=== PATIENT | male | born 1950 | race Caucasian/White ===

== ENCOUNTER 2020-04-25 10:03 | Emergency (ER) | payer OTHER, BC ==
--- OUTSIDE RECORDS SUMMARY | 2020-04-25 10:06 | XMS REPORT | Continuity of Care Document ---
:1950 Author Organization [facility] t Address [address] [place] [address] Care Team Providers Name Role Phone Haseeb Harrell MD Primary Care Physician Cecelia Colon MD Attending Clinician Problems This patient has no known problems. Allergies, Adverse Reactions, Alerts This patient has no known allergies or adverse reactions. Social History Social Habit Start Date Stop Date Quantity Comments Source [facility]igned [facility] Medications This patient has no known medications. Procedures This patient has no known procedures. Plan of Care Planned Activity Planned Date Details Comments Source Future Scheduled 2019-09-25 INFLUENZA VACCINE [place] [facility] Test 00:00:00 [code = INFLUENZA VACCINE] Future Scheduled 2014 65+ PNEUMOCOCCAL [place] [facility] Test 00:00:00 VACCINE (1 of 1 - PPSV23) [code = 65+ PNEUMOCOCCAL VACCINE (1 of 1 - PPSV23)] Future Scheduled 1999 COLONOSCOPY SCREENING [place] [facility] Mandaen Test 00:00:00 [code = COLONOSCOPY SCREENING] Future Scheduled 1999 SHINGLES VACCINES (#1) [place] Test 00:00:00 [code = SHINGLES VACCINES (#1)] Future Scheduled 1967 Hepatitis C screening [place] [facility] Mandaen Test 00:00:00 (procedure) [code = 889984545] Future Scheduled 1965 COVID-19 VACCINE (1 of [place] Test 00:00:00 2) [code = COVID-19 VACCINE (1 of 2)] Encounters Start End Encounter Admission Attending Care Care Encounter Source Date/Time Date/Time Type Type Clinicians Facility Department ID 2020-02-24 2020-02-24 Office ELMO Cooln [id number] 12:51:31 13:23:17 Visit [facility] [id number] Surgical [id number] Specialti [id number] [address] [place] Results This patient has no known results.
[2020-04-25 10:39] LABS: Absolute Lymphocytes (CBC) 1.9 K/uL (0.7-4.9); Basophils % 1.2 % (0-1.3); Hematocrit 42.7 % (39.6-49.0); Lymphocytes % 23.7 % (15.3-44.8); MPV 8.8 fL (7.6-11.3); RBC Red Blood Cell Count 4.64 M/uL (4.33-5.43)
[2020-04-25 10:52] LABS: Potassium 4.4 mmol/L (3.5-5.1)
--- NOTE | 2020-04-25 10:52 | RAD REPORT ---
EXAM DESCRIPTION: CT - Thorax Wo Con - 04/25/2020 10:34 am CLINICAL HISTORY: sob COMPARISON: none TECHNIQUE: Computed axial tomography of the chest was obtained. Contrast was not requested. All CT scans are performed using dose optimization technique as appropriate and may include automated exposure control or mA/KV adjustment according to patient size. FINDINGS: The evaluation of mediastinum, mesha and vessels is limited secondary to lack of IV contras t administration. Moderate bilateral interstitial mostly subpleural pulmonary opacities having the appearance of pulmon micky fibrosis. No consolidation Small mediastinal lymph nodes probably reactive in nature. No hilar lymphadenopathy. Coronary arteria l calcifications A pleural effusion is not present. No pericardial effusion IMPRESSION: Moderate pulmonary fibrosis
--- NOTE | 2020-04-25 10:54 | RAD REPORT ---
EXAM DESCRIPTION: [place] Single View04/25/2020 10:44 am CLINICAL HISTORY: Shortness of breath COMPARISON: December 2019 FINDINGS: Moderate bilateral interstitial lung opacities unchanged having the appearance of pulmona ry fibrosis. The heart is borderline enlarged
[2020-04-25 12:19] LABS: SARS-COV-2 RT PCR NEGATIVE (NEGATIVE)
--- NOTE | 2020-04-25 13:11 | EDPHYS ---
Physician Documentation [facility] Name: Houston Bell Age: 70 yrs Sex: Male : 1950 Arrival Date: 04/25/2020 Time: 10:07 Bed 6 Private MD: None, None ED Physician Dale Dyer HPI: 04/25 13:02 This 70 yrs old Male presents to ER via Ambulatory with complaints of Fever, rn Cough. 13:02 The patient reports fever, not measured (subjective). Onset: The symptoms/episode rn began/occurred yesterday. Modifying factors: there are no obvious modifying factors. Associated signs and symptoms: Pertinent positives: cough, Pertinent negatives: abdominal pain, altered mental status, skin rash. Severity of symptoms: At their worst the symptoms were mild in the emergency department the symptoms are unchanged. The patient has experienced similar episodes in the past. The patient has not recently seen a physician. Reports chronic cough and sob, mild, subjective fever. Reports several xrays showing interstitial and pneumonia findings. Reports previous smoker years ago, as well as possible exposures during years in [place] and [place]. . Historical: - Allergies: 10:26 Iodine (swelling and itching); aa5 - Home Meds: 10:26 Humira subcutaneous subcutaneous [Active]; aa5 - PMHx: 10:26 RA; Asbestos; aa5 - PSHx: 10:26 Hernia repair; cataracts; L knee; James shoulders; aa5 - Immunization history:: Adult Immunizations unknown. - Social history:: Smoking status: Patient denies any tobacco usage or history of. - Family history:: not pertinent. - Hospitalizations: : No recent hospitalization is reported. ROS: 13:02 Constitutional: Negative for fever, chills, and weight loss, Eyes: Negative for injury, rn pain, redness, and discharge, Cardiovascular: Negative for chest pain, palpitations, and edema, Respiratory: + mild tachypnea, no retractions Abdomen/GI: Negative for abdominal pain, nausea, vomiting, diarrhea, and constipation, Back: Negative for injury and pain, MS/Extremity: Negative for injury and deformity, Skin: Negative for injury, rash, and discoloration, Neuro: Negative for headache, weakness, numbness, tingling, and seizure. Exam: 13:02 Constitutional: This is a well developed, well nourished patient who is awake, alert, rn and in no acute distress. Head/Face: Normocephalic, atraumatic. Cardiovascular: Regular rate and rhythm. No pulse deficits. Respiratory: Mild tachypnea, no wheezing Abdomen/GI: soft, non-tender Skin: Warm, dry MS/ Extremity: Pulses equal, no cyanosis. Neuro: Awake and alert, GCS 15 Vital Signs: 10:10 BP 157 / 107; Pulse 104; Resp 18 S; Temp 98.2(O); Pulse Ox 100% on R/A; Weight 90.08 kg aa5 (R); Height 5 ft. 10 in. (177.80 cm) (R); 11:10 BP 113 / 81; Pulse 94; Resp 16 S; Pulse Ox 93% on R/A; aa5 12:17 BP 115 / 83; Pulse 88; Resp 21; Pulse Ox 93% ; bw 10:10 Body Mass Index 28.50 (90.08 kg, 177.80 cm) aa5 MDM: 10:09 Patient medically screened. rn 13:02 Differential diagnosis: viral Infection, URI, bronchitis, pneumonia. Data reviewed: rn vital signs, nurses notes, lab test result(s), radiologic studies, and as a result, I will discharge patient. Counseling: I had a detailed discussion with the patient and/or guardian regarding: the historical points, exam findings, and any diagnostic results supporting the discharge/admit diagnosis, lab results, radiology results, the need for outpatient follow up, to return to the emergency department if symptoms worsen or persist or if there are any questions or concerns that arise at home. Special discussion: I discussed with the patient/guardian in detail that at this point there is no indication for admission to the hospital. It is understood, however, that if the symptoms persist or worsen the patient needs to return immediately for re-evaluation. Based on the history and exam findings, there is no indication for further emergent testing or inpatient evaluation. I discussed with the patient/guardian the need to see the inspecting supervisor for further evaluation of the symptoms. 04/25 10:18 Order name: CBC with Diff; Complete Time: 10:55 rn 04/25 10:18 Order name: Basic Metabolic Panel; Complete Time: 10:55 rn 04/25 10:18 Order name: Procalcitonin; Complete Time: 12:14 rn 04/25 12:20 Order name: COVID-19/FLU A+B; Complete Time: 12:49 EDOH 04/25 10:18 Order name: IV Start; Complete Time: 10:26 rn 04/25 10:18 Order name: XRAY Chest (1 view); Complete Time: 10:55 rn 04/25 10:18 Order name: CT Chest Wo Con; Complete Time: 10:55 rn Administered Medications: No medications were administered Disposition: 04/25/20 13:10 Discharged to Home. Impression: Bronchitis, not specified as acute or chronic, Pulmonary fibrosis, unspecified. - Condition is Stable. - Discharge Instructions: Acute Bronchitis, Adult, Cough, Adult. - Prescriptions for Levaquin 500 mg Oral Tablet - take 1 tablet by ORAL route once daily for 7 days; 7 tablet. Prednisone 20 mg Oral Tablet - take 3 tablet by ORAL route once daily for 5 days; 15 tablet. Albuterol Sulfate 90 mcg/actuation - inhale 1-2 puff by INHALATION route every 4-6 hours; 1 Inhaler. - Medication Reconciliation Form, Thank You Letter, Antibiotic Education, Prescription Opioid Use form. - Follow up: Private Physician; When: As needed; Reason: Recheck today's complaints, Re-evaluation by your physician. - Problem is new. - Symptoms have improved. Signatures: Dispatcher [employer] [facility] Christine Munoz RN RN iw Nieto, Roman, MD MD rn Calderon, Audri, RN RN aa5 Corrections: (The following items were deleted from the chart) 11:35 10:19 CORONAVIRUS+MR.LAB.BRZ ordered. [facility] 11:35 10:19 Influenza Screen (A \T\ B)+BA.LAB.BRZ ordered. [facility] 13:35 13:10 04/25/2020 13:10 Discharged to Home. Impression: Bronchitis, not specified as iw acute or chronic; Pulmonary fibrosis, unspecified. Condition is Stable. Forms are Medication Reconciliation Form, Thank You Letter, Antibiotic Education, Prescription Opioid Use. Follow up: Private Physician; When: As needed; Reason: Recheck today's complaints, Re-evaluation by your physician. Problem is new. Symptoms have improved. rn
--- NOTE | 2020-04-25 13:11 | ER ---
Nurse's Notes [facility] Name: Houston Bell Age: 70 yrs Sex: Male : 1950 Arrival Date: 04/25/2020 Time: 10:07 Bed 6 Private MD: None, None Diagnosis: Bronchitis, not specified as acute or chronic;Pulmonary fibrosis, unspecified Presentation: 04/25 10:09 Chief complaint: Patient states: chills, night sweats, and 99.8*F temperature last aa5 night. Pt reports cough since February last year, reports he was diagnosed with Pneumonia March 2019 and December 2019. Pt denies SOB. Reports chest congestion. 10:09 Coronavirus screen: chills, cough unrelated to allergies, Client presents with at least aa5 one sign or symptom that may indicate coronavirus-19. Standard/surgical mask placed on the client. Provider contacted for isolation considerations. Ebola Screen: Patient negative for fever greater than or equal to 101.5 degrees Fahrenheit, and additional compatible Ebola Virus Disease symptoms. Initial Sepsis Screen: Does the patient meet any 2 criteria? HR > 90 bpm. Does the patient have a suspected source of infection? Yes: Productive cough/pneumonia. Risk Assessment: Do you want to hurt yourself or someone else? Patient reports no desire to harm self or others. Onset of symptoms was April 24, 2020. 10:09 Acuity: JESSICA 3 aa5 10:09 Method Of Arrival: Ambulatory aa5 Historical: - Allergies: 10:26 Iodine (swelling and itching); aa5 - Home Meds: 10:26 Humira subcutaneous subcutaneous [Active]; aa5 - PMHx: 10:26 RA; Asbestos; aa5 - PSHx: 10:26 Hernia repair; cataracts; L knee; James shoulders; aa5 - Immunization history:: Adult Immunizations unknown. - Social history:: Smoking status: Patient denies any tobacco usage or history of. - Family history:: not pertinent. - Hospitalizations: : No recent hospitalization is reported. Screenin:10 Abuse screen: Denies threats or abuse. Nutritional screening: No deficits noted. aa5 Tuberculosis screening: Possible symptoms: recent fever, recent night sweats, cough for more than 2 weeks, Denies coughing blood. Fall Risk None identified. Assessment: 10:15 General: Appears comfortable, Behavior is calm, cooperative. Pain: Complains of pain in aa5 right shoulder Pain began Pt states "for a while, I have a bad right shoulder" Is continuous. Neuro: Level of Consciousness is awake, alert, obeys commands, Oriented to person, place, time, situation. Cardiovascular: Heart tones S1 S2 present Rhythm is regular. Respiratory: Reports cough that is productive, Airway is patent Respiratory effort is even, unlabored, Respiratory pattern is regular, symmetrical, Breath sounds are clear bilaterally. Denies shortness of breath. GI: Abdomen is round. : No signs and/or symptoms were reported regarding the genitourinary system. EENT: No signs and/or symptoms were reported regarding the EENT system. Derm: Skin is pink, warm \\T\\ dry. Musculoskeletal: Range of motion: intact in all extremities. 11:10 Reassessment: Patient is alert, oriented x 3, equal unlabored respirations, skin aa5 warm/dry/pink. 12:37 Reassessment: Patient is alert, oriented x 3, equal unlabored respirations, skin aa5 warm/dry/pink. Pt sitting up in bed using his cell phone. . 13:30 Reassessment: Patient is alert, oriented x 3, equal unlabored respirations, skin aa5 warm/dry/pink. Vital Signs: 10:10 BP 157 / 107; Pulse 104; Resp 18 S; Temp 98.2(O); Pulse Ox 100% on R/A; Weight 90.08 kg aa5 (R); Height 5 ft. 10 in. (177.80 cm) (R); 11:10 BP 113 / 81; Pulse 94; Resp 16 S; Pulse Ox 93% on R/A; aa5 12:17 BP 115 / 83; Pulse 88; Resp 21; Pulse Ox 93% ; bw 10:10 Body Mass Index 28.50 (90.08 kg, 177.80 cm) aa5 ED Course: 10:07 Patient arrived in ED. mr 10:07 None, None is Private Physician. mr 10:09 Dale Dyer MD is Attending Physician. rn 10:09 Lurdes Torres, KIRSTIE is Primary Nurse. aa5 10:09 Arm band placed on Patient placed in an exam room, on a stretcher. aa5 10:09 Patient has correct armband on for positive identification. Placed in gown. Bed in low aa5 position. Call light in reach. Side rails up X2. groundwater monitoring technician on. Pulse ox on. NIBP on. 10:23 Triage completed. aa5 10:26 Initial lab(s) drawn, by me, sent to lab. Inserted saline lock: 20 gauge in left kj1 antecubital area, using aseptic technique. Blood collected. 10:34 CT Chest Wo Con In Process Unspecified. EDMS 10:40 XRAY Chest (1 view) In Process Unspecified. EDMS 13:30 No provider procedures requiring assistance completed. IV discontinued, intact, aa5 bleeding controlled, No redness/swelling at site. Pressure dressing applied. Administered Medications: No medications were administered Outcome: 13:10 Discharge ordered by . rn 13:30 Discharged to home ambulatory, with family. aa5 13:30 Condition: stable 13:30 Discharge instructions given to patient, Instructed on discharge instructions, follow up and referral plans. medication usage, Demonstrated understanding of instructions, follow-up care, medications, Prescriptions given X 3. 13:35 Patient left the ED. iw Signatures: Dispatcher [employer] EDMD MarshLinda dias Irene, RN RN iw Dale Dyer MD MD rn Calderon, Audri RN RN aa5 Yolanda Andrade kj1 Nu Kaur RN RN bw Corrections: (The following items were deleted from the chart) 11:02 10:10 Tuberculosis screening: Possible symptoms: recent fever, recent night sweats, aa5 cough for more than 2 weeks, aa5
[2020-04-25 13:56] VITALS: TEMP 98.2
[2020-04-25 13:57] VITALS: O2SAT 93
[2020-04-25 13:58] VITALS: BP 115/83
== END 2020-04-25 13:35 | disposition home or self-care (01) ==
LOC: ER 10:03
DX: J40 Bronchitis, not specified as acute or chronic (principal); J84.10 Pulmonary fibrosis, unspecified; Z20.822 Contact with and (suspected) exposure to COVID-19; Z91.048 Other nonmedicinal substance allergy status
CPT/HCPCS: 85025; 80048; 36415; 84145; 0240U; 71250; 71045; 99284

== ENCOUNTER 2021-01-02 16:12 | Inpatient (IN) | payer OTHER, BC ==
[2021-01-02] MEDS ORDERED: AMIODARONE HCL 150 MG in D5W 100 ML IV STA (16:15)
[2021-01-02 16:43] LABS: Absolute Lymphocytes (CBC) 0.9 K/uL (0.7-4.9); Hematocrit 41.7 % (39.6-49.0); Lymphocytes % 8.2 % (15.3-44.8); MPV 8.6 fL (7.6-11.3); RBC Red Blood Cell Count 4.71 M/uL (4.33-5.43)
[2021-01-02 16:45] LABS: Protime INR 1.26
[2021-01-02] MEDS ORDERED: FUROSEMIDE 40 MG/4 ML VIAL ONE (16:53)
[2021-01-02 16:56] LABS: Potassium 4.1 mmol/L (3.5-5.1)
[2021-01-02] MEDS: FUROSEMIDE 40 MG/4 ML VIAL IV SCH (16:59)
[2021-01-02] MEDS ORDERED: AMIODARONE HCL 900 MG in Dextrose 5%-Water 482 ML IV SCH (17:00)
--- NOTE | 2021-01-02 17:13 | RAD REPORT ---
EXAM DESCRIPTION: RAD - Chest Single View - 01/02/2021 4:49 pm CLINICAL HISTORY: chf, pleural effusion COMPARISON: Two view chest November 22 TECHNIQUE: AP portable chest image was obtained 01/02/2021 4:49 pm . FINDINGS: Lung volumes are low. This accentuates the baseline interstitial pattern. Acute interstiti al edema or infiltrate could be masked by the baseline prominent pattern. Patient has a small to mode rate size left pleural effusion. This is increased from the prior study. Heart size is prominent with a left heart obscured by the pleural fluid. Vasculature is mildly prominent. No pneumothorax. No acu te bony abnormality seen. No acute aortic findings suspected. IMPRESSION: Small to moderate size left pleural effusion apparent of increased since November 22. Vasculature and lung markings are accentuated. This is in part due to low lung volumes. A failure or volume overload component is certainly possible.
[2021-01-02 17:56] VITALS: BMI 27.2
[2021-01-02] MEDS ORDERED: ENOXAPARIN 100 MG/ML SYR SQ SCH (18:28)
[2021-01-02 18:32] LABS: Blood Morphology Comment NOT SEEN (NOT SEEN); Platelet Estimate ADEQ; White Blood Cell Scan OK (OK)
[2021-01-02] MEDS ORDERED: INFLUENZA VACCINE (for 6+ mo) 0.5 ML DOSE IMVAC ONE ×2 (20:00→20:03)
[2021-01-02] MEDS ORDERED: carvediloL 6.25 MG TAB ONE (20:02)
[2021-01-02] MEDS ORDERED: ENOXAPARIN 100 MG/ML SYR SQ ONE (20:03)
[2021-01-02] MEDS: ENOXAPARIN 100 MG/ML SYR SQ SCH (20:33)
[2021-01-02] MEDS: carvediloL 6.25 MG TAB PO SCH (20:33)
--- NOTE | 2021-01-02 21:28 | ER ---
Nurse's Notes [facility] Name: Houston Bell Age: 70 yrs Sex: Male : 1950 Arrival Date: 01/02/2021 Time: 16:13 Bed Direct Admit Private MD: Diagnosis: Persistent atrial fibrillation Presentation: 01/02 16:19 Chief complaint: Patient states: Direct admit. Ebola Screen: Patient denies travel to [facility] an Ebola-affected area in the 21 days before illness onset. Initial Sepsis Screen: Does the patient meet any 2 criteria? No. Patient's initial sepsis screen is negative. Does the patient have a suspected source of infection? No. Patient's initial sepsis screen is negative. Risk Assessment: Do you want to hurt yourself or someone else? Patient reports no desire to harm self or others. 16:19 Method Of Arrival: Ambulatory [facility] 16:19 Acuity: JESSICA 2 ll1 Triage Assessment: 18:38 General: Appears in no apparent distress. Behavior is calm, cooperative, appropriate ll for age. Pain: Denies pain. Historical: - Allergies: 16:20 Iodine (swelling and itching); ll1 16:20 oxycodone; 1 16:20 Aspirin; 1 - PMHx: 16:20 asbestos; RA; ll1 - Immunization history:: Adult Immunizations up to date. - Social history:: Smoking status: Patient/guardian denies using tobacco. Screenin:36 Abuse screen: Denies threats or abuse. Nutritional screening: No deficits noted. ll1 Tuberculosis screening: No symptoms or risk factors identified. Fall Risk IV access (20 points). Total Gloria Fall Scale indicates No Risk (0-24 pts). Assessment: 19:11 General: See [facility] for charting purposes. . tw5 Vital Signs: 16:44 BP 137 / 99; Pulse 151; Resp 23; Temp 98.2; Pulse Ox 96% ; ll1 ED Course: 16:13 Patient arrived in ED. ds1 16:19 Raheel Pastrana, RN is Primary Nurse. ll1 16:19 Arm band placed on Patient placed in an exam room, on a stretcher. ll1 16:20 Triage completed. ll1 16:30 Initial lab(s) drawn, by me, sent to lab. Inserted saline lock: 14 gauge 20 gauge in kj1 right antecubital area, using aseptic technique. Blood collected. 18:37 Patient has correct armband on for positive identification. Bed in low position. Call ll1 light in reach. Side rails up X 1. traffic monitor specialist on. Pulse ox on. NIBP on. 18:38 No provider procedures requiring assistance completed. Patient admitted, IV remains in ll1 place. 19:11 Primary Nurse role handed off by Raheel Pastrana, KIRSTIE tw5 19:11 Pita Simons is Primary Nurse. tw5 21:26 Michael Escobedo MD is Hospitalizing Provider. la1 Administered Medications: No medications were administered Outcome: 18:39 Condition: stable ll1 21:27 Decision to Hospitalize by Provider. la1 21:28 Patient left the ED. la1 Signatures: Agnes Zapata ds1 Roderick Rhodes, OVERWEAVER-C OVERWEAVER-Cla1 Yolanda Andrade kj1 Raheel Pastrana RN RN 1 Pita Simons tw5
[2021-01-03 01:08] LABS: Urine Appearance CLEAR (Clear); Urine Bilirubin NEGATIVE (Negative); Urine Blood NEGATIVE (Negative); Urine Color YELLOW (Yellow); Urine Glucose NEGATIVE (Negative); Urine Microscopic Reflex NO UMIC; Urine Protein NEGATIVE (Negative); Urine Specific Gravity <=1.005 (1.005-1.030); Urine Urobilinogen 0.2 mg/dL (0.2-1.0)
[2021-01-03] MEDS ORDERED: FUROSEMIDE 40 MG/4 ML VIAL ONE ×2 (08:13→18:07)
[2021-01-03] MEDS ORDERED: ENOXAPARIN 100 MG/ML SYR SQ ONE ×2 (08:13→20:09)
[2021-01-03] MEDS ORDERED: lisinopriL 5 MG TAB ONE (08:13)
[2021-01-03] MEDS ORDERED: carvediloL 6.25 MG TAB ONE (08:13)
[2021-01-03] MEDS: FUROSEMIDE 40 MG/4 ML VIAL IV SCH ×2 (08:20→17:00)
[2021-01-03] MEDS: carvediloL 6.25 MG TAB PO SCH ×2 (08:21→20:04)
[2021-01-03] MEDS: ENOXAPARIN 100 MG/ML SYR SQ SCH ×2 (08:21→20:11)
[2021-01-03] MEDS ORDERED: lisinopriL 5 MG TAB PO SCH (09:00)
--- NOTE | 2021-01-03 11:51 | P.PN ---
Subjective Date of Service: 01/03/21 Chief Complaint: SOB Subjective: Improving (Doing much better slept last night DX CHF and Afib) Review of Systems General: Weakness Respiratory: Shortness of Breath Physical Examination - Vital Signs Temperature: 97.8 F Blood Pressure: 104/87 Pulse: 92 Respirations: 17 Pulse Ox (%): 98 - Physical Exam General: Alert, In no apparent distress, Oriented x3 Respiratory: Crackles/rales Cardiovascular: No edema, Irregular heart rate/rhythm Assessment & Plan - Problems (Diagnosis) (1) CHF (congestive heart failure), NYHA class III Current Visit: Yes Status: Acute Plan: AW severe CHF and A fib S/B Cardiology/ Meds reviewed/ Mod effusion on the left side VS stable NC in [place]
--- NOTE | 2021-01-03 13:27 | P.HP ---
Certification for Inpatient Patient admitted to: Inpatient With expected LOS: >2 Midnights Practitioner: I am a practitioner with admitting privileges, knowledge of patient current condition, hospital course, and medical plan of care. Services: Services provided to patient in accordance with Admission requirements found in Title 42 Section 412.3 of the Code of Federal Regulations Patient History Date of Service: 01/03/21 Reason for admission: SOB History of Present Illness: 70-year-old male, PMH: RA, pulmonary fibrosis, colon cancer (s/p resection). Was sent to the hospital by his welder fitter gas for admission and further treatment of new diagnosis of acute systolic congestive heart failure and atrial fibrillation with RVR. Patient has noticed some slight increased swelling over the last month, and began to have more shortness of breath and palpitations over the last few days. He presented to his linking machine operator given his history of pulmonary fibrosis. He was noted to have fast heart rate and was sent to a welder fitter gas. The welder fitter gas office yesterday he was noted to be in atrial fibrillation and an echocardiogram was performed which revealed an EF of 25%. He was advised to present to the ER for admission to hospital for acute treatment. In the ED, he was noted to be in A. fib with RVR to the 150s. He was started on an amiodarone drip, and he was admitted to the ICU. Patient was initially directly admitted to the welder fitter gas service overnight, he will be transferred to hospitalist service today. Allergies Iodinated Contrast Media [Iodinated Contrast Media - IV Dye] Allergy (Verified 04/18/16 10:50) swelling , whelts aspirin [From Percodan] Adverse Reaction (Verified 04/18/16 10:50) hallucinations oxycodone [From Percodan] Adverse Reaction (Verified 04/18/16 10:50) hallucinations Home Medications: Turmeric/Turmeric Root Extract [Turmeric 500 mg Capsule] 1,500 mg PO DAILY 04/18/16 Vit A/Vit C/Vit E/Zinc/Copper [Icaps Areds Formula Dr Tablet] 1 each PO DAILY 04/18/16 Dexamethasone [Decadron] 2.5 mg BID 01/02/21 Famotidine [Pepcid] 40 mg DAILY 01/02/21 Spironolactone 25 mg DAILY 01/02/21 - Past Medical/Surgical History Has patient received pneumonia vaccine in the past: Yes -: Rheumatoid arthritis -: Pulmonary fibrosis -: Colon cancer resection -: Knee surgery -: Shoulder surgery -: Tonsillectomy - Family History Mother -: Heart disease ([place]) Brother -: Heart disease (Congestive heart failure) - Social History Smoking Status: Former smoker (Quit in 1980) Alcohol use: Yes Place of Residence: Home Review of Systems 10-point ROS is otherwise unremarkable Physical Examination - Vital Signs Temperature: 98.6 F Blood Pressure: 84/70 Pulse: 92 Respirations: 16 Pulse Ox (%): 98 - Physical Exam General: Alert, In no apparent distress, Oriented x3 HEENT: Sclerae nonicteric Respiratory: Diminished (At bases bilaterally) Cardiovascular: No murmurs, Edema (12+), Irregular heart rate/rhythm Gastrointestinal: Soft and benign, Non-distended, No tenderness Musculoskeletal: No tenderness Integumentary: No significant lesion Neurological: Normal speech, Normal strength at 5/5 x4 extr, Normal affect Assessment and Plan - Advance Directives Does patient have a Living Will: No Does patient have a Durable POA for Healthcare: No Physician Review Additional Text: Problem list Atrial fibrillation with RVR, new onset Acute systolic congestive heart failure, new onset (HFrEF) Rheumatoid arthritis Pulmonary fibrosis Patient started on IV amiodarone in the ER yesterday Patient's rate has been controlled in 80s90s overnight He is diuresing well with IV Lasix 40 mg twice daily per cardiology Cardiology following Blood pressure not low end of normal, continue to monitor Continue therapeutic Lovenox dosing Continue FADIA inhibitor per cardiology Transition IV amiodarone to p.o. 400 mg twice daily after 24 hours Patient reports doing better, swelling has improved. Not requiring oxygen supplementation Moderate left-sided pleural effusion, pulmonology consulted by welder fitter gas, no thoracentesis planned VTE: Lovenox 1 mG/KG Code: Full Dispo: Anticipate discharge home tomorrow Time Spent Managing Pts Care (In Minutes): 60
[2021-01-03] MEDS ORDERED: AMIODARONE HCL 200 MG TAB ONE ×2 (20:09→20:13)
[2021-01-03] MEDS: AMIODARONE HCL 200 MG TAB PO SCH (20:11)
[2021-01-03 22:25] LABS: Thyroid Stimulating Hormone 3.15 uIU/mL (0.360-3.740)
[2021-01-04 04:51] LABS: Hematocrit 38.6 % (39.6-49.0); MPV 8.4 fL (7.6-11.3); RBC Red Blood Cell Count 4.36 M/uL (4.33-5.43)
[2021-01-04 04:57] LABS: Magnesium 2.5 mg/dL (1.8-2.4)
[2021-01-04 05:34] VITALS: TEMP 98.2
[2021-01-04] MEDS ORDERED: carvediloL 6.25 MG TAB ONE (08:24)
[2021-01-04] MEDS ORDERED: AMIODARONE HCL 200 MG TAB ONE (08:24)
[2021-01-04] MEDS ORDERED: FUROSEMIDE 40 MG TABLET ONE (08:24)
[2021-01-04] MEDS ORDERED: ENOXAPARIN 100 MG/ML SYR SQ ONE (08:24)
[2021-01-04] MEDS: AMIODARONE HCL 200 MG TAB PO SCH (08:31)
[2021-01-04] MEDS: ENOXAPARIN 100 MG/ML SYR SQ SCH (08:32)
[2021-01-04 08:35] VITALS: O2SAT 98
[2021-01-04] MEDS ORDERED: carvediloL 6.25 MG TAB PO SCH (09:00)
[2021-01-04] MEDS ORDERED: FUROSEMIDE 40 MG TABLET PO SCH (09:00)
[2021-01-04] MEDS ORDERED: lisinopriL 5 MG TAB PO SCH (09:00)
[2021-01-04 09:28] VITALS: BP 115/68
--- NOTE | 2021-01-04 10:47 | RAD REPORT ---
EXAM DESCRIPTION: RAD - Chest Single View - 01/04/2021 8:35 am CLINICAL HISTORY: f/u pulm effusion COMPARISON: Chest Single View dated 01/02/2021; Chest Pa And Lat (2 Views) dated 11/22/2020; Chest Sin gle View dated 04/25/2020; Chest Pa And Lat (2 Views) dated 01/05/2020 FINDINGS: Lines: None. Lungs: Diffuse prominence of the pulmonary interstitium. Pleural: Moderate left pleural effusion. Cardiac: Partially obscured silhouette due to the effusion Bones: No acute fractures. Other: IMPRESSION: Unchanged moderate left pleural effusion with low lung volumes and possible edema versus accentuation of the pulmonary vasculature by radiographic technique
--- NOTE | 2021-01-04 13:27 | P.DS ---
Admission Date: 01/02/21 Discharge Date: 01/04/21 Disposition: ROUTINE DISCHARGE Discharge Condition: GOOD Reason for Admission: SOB, CHF Exacerbation Consultations: Cardiology - Dr. Escobedo Pulmonology - Dr. Brewster Procedures: CXR (01/02): IMPRESSION: Small to moderate size left pleural effusion apparent of increased since November 22. Vasculature and lung markings are accentuated. This is in part due to low lung volumes. A failure or volume overload component is certainly possible. CXR (01/04): FINDINGS: Lines: None. Lungs: Diffuse prominence of the pulmonary interstitium. Pleural: Moderate left pleural effusion. Cardiac: Partially obscured silhouette due to the effusion Bones: No acute fractures. Other: IMPRESSION: Unchanged moderate left pleural effusion with low lung volumes and possible edema versus accentuation of the pulmonary vasculature by radiographic technique Problem list Atrial fibrillation with RVR, new onset Acute systolic congestive heart failure, new onset (HFrEF) Rheumatoid arthritis Pulmonary fibrosis Brief History of Present Illness: 70-year-old male, PMH: RA, pulmonary fibrosis, colon cancer (s/p resection). Was sent to the hospital by his thermoscrew operator for admission and further treatment of new diagnosis of acute systolic congestive heart failure and atrial fibrillation with RVR. Patient has noticed some slight increased swelling over the last month, and began to have more shortness of breath and palpitations over the last few days. He presented to his cmm inspector given his history of pulmonary fibrosis. He was noted to have fast heart rate and was sent to a thermoscrew operator. The thermoscrew operator office yesterday he was noted to be in atrial fibrillation and an echocardiogram was performed which revealed an EF of 25%. He was advised to present to the ER for admission to hospital for acute treatment. In the ED, he was noted to be in A. fib with RVR to the 150s. He was started on an amiodarone drip, and he was admitted to the ICU. Patient was initially directly admitted to the thermoscrew operator service overnight, he will be transferred to hospitalist service today. Hospital Course: Patient had improvement of his heart rate with beta-jonh and initiation of amiodarone. He remained in atrial fibrillation during his hospitalization, however heart rate improved down to [id number]. Cardiology was consulted, reported patient's EF was 25% noted on echocardiogram in the office on day of admission. Patient's edema and shortness of breath improved with IV Lasix. He diuresed well, somewhat limited due to hypotension. He was initially started on FADIA inhibitor, beta-jonh, IV Lasix. On discharge she will continue with p.o. Lasix and low-dose carvedilol. Instructed to check blood pressure at home, keep a diary. He will be reevaluated in the cardiology office this coming Friday. To possibly start on an FADIA inhibitor if blood pressure can tolerate as an outpatient. He was noted to have moderate left pleural effusion on chest x-ray, pulmonology was consulted recommendation by cardiology. Pulmonology recommended continue diuresis, no thoracentesis/procedure at this time. Patient reported breathing more comfortably after IV Lasix and she did not require any oxygen supplementation. Prescriptions for Eliquis and Xarelto were sent to patient's pharmacy so that he may fill a prescription which is more affordable. ancillary services manager therapy contacted to discuss with patient if he needs a further discount card. Vital Signs/Physical Exam: Temp Pulse Resp BP Pulse Ox 98.2 F 92 H 18 115/68 99 01/04/21 07:00 01/04/21 09:00 01/04/21 09:00 01/04/21 09:00 01/04/21 09:00 General: Alert, In no apparent distress, Oriented x3 HEENT: Sclerae nonicteric Neck: Supple Respiratory: Diminished (Left lung base, otherwise clear), Other (Nonlabored respirations on room air) Cardiovascular: Edema (Trace bilateral lower extremity edema), Irregular heart rate/rhythm Gastrointestinal: Soft and benign, Non-distended, No tenderness Musculoskeletal: No erythema, No tenderness Integumentary: No rashes, No significant lesion Neurological: Normal speech, Normal affect Laboratory Data at Discharge: WBC 8.40 K/uL (4.3-10.9) D 01/04/21 04:15 Hgb 12.6 g/dL (13.6-17.9) L 01/04/21 04:15 Hct 38.6 % (39.6-49.0) L 01/04/21 04:15 Plt Count 264 K/uL (152-406) 01/04/21 04:15 PT 14.5 SECONDS (9.5-12.5) H 01/02/21 16:28 INR 1.26 01/02/21 16:28 APTT 36.9 SECONDS (24.3-36.9) 01/02/21 16:28 Sodium 140 mmol/L (136-145) 01/04/21 04:15 Potassium 4.0 mmol/L (3.5-5.1) 01/04/21 04:15 BUN 22 mg/dL (7-18) H 01/04/21 04:15 Creatinine 1.02 mg/dL (0.55-1.3) 01/04/21 04:15 Glucose 84 mg/dL (74-106) 01/04/21 04:15 Magnesium 2.5 mg/dL (1.8-2.4) H 01/04/21 04:15 Home Medications: Vit A/Vit C/Vit E/Zinc/Copper [Icaps Areds Formula Dr Tablet] 1 each PO DAILY 04/18/16 Dexamethasone [Decadron] 2.5 mg BID 01/02/21 Famotidine [Pepcid] 40 mg DAILY 01/02/21 Amiodarone HCl [Cordarone*] 2 tab PO BID 14 Days #56 tab 01/04/21 Apixaban [Eliquis] 5 mg PO BID 30 Days #60 tablet 01/04/21 Carvedilol [Coreg] 3.125 mg PO BID 30 Days #60 tablet 01/04/21 Furosemide [Lasix*] 40 mg PO DAILY 30 Days #30 tab 01/04/21 Rivaroxaban [Xarelto] 20 mg PO DAILY AT SUPPER 30 Days #30 tablet 01/04/21 New Medications: Amiodarone HCl [Cordarone*] 2 tab PO BID 14 Days #56 tab Carvedilol [Coreg] 3.125 mg PO BID 30 Days #60 tablet Apixaban [Eliquis] 5 mg PO BID 30 Days #60 tablet Furosemide [Lasix*] 40 mg PO DAILY 30 Days #30 tab Rivaroxaban [Xarelto] 20 mg PO DAILY AT SUPPER 30 Days #30 tablet Physician Discharge Instructions: You were found to have rapid Atrial fibrillation and new acute congestive heart failure exacerbation. Echocardiogram done at Dr. Escobedo's office showed an ejection fraction of ~25%. Your atrial fibrillation improved with starting amiodarone and carvedilol. Your heart rate improved to 80s-110s. Your shortness of breath and swelling is due to fluid retention from your congestive heart failure. This also improved with diuresis with Lasix. You have some fluid around your left lung which improved as well. This should continue to improve as you continue diuresis and get more fluid off. You are discharged home with new prescriptions for lasix, carvedilol, and a blood thinner, Xarelto. Recommend checking your blood pressure daily at home. Your blood pressure was on the low-normal side during hospitalization, due to some of the medications. Follow up with Dr. Escobedo on Friday (01/08) at 1pm Diet: AHA Activity: Ad lizz Followup: Michael Escobedo MD [Primary Care Provider] - Time spent managing pt's care (in minutes): 45
--- OUTSIDE RECORDS SUMMARY | 2021-01-06 18:15 | XMS REPORT | Continuity of Care Document ---
:1950 Author Organization [facility] t Address [address] [place] [address] Care Team Providers Name Role Phone CHARLESANTOINETTEMIRIAN Primary Care Physician Unavailable ANSHUL COFFMAN Attending Clinician Unavailable Anshul Coffman MD Attending Clinician MORENA Attending Clinician Unavailable Isaiah AYALA, L Attending Clinician Payers Payer Name Policy Type Policy Number Effective Date Ex[place] [facility] \T\ [id number] 2013 B 00:00:00 [employer] TRADITIONAL [id number] 2013 00:00:00 Problems Condition Condition Condition Status Onset Resolution Last Treating Co mments Source Name Details Category Date Date Treatment Clinician Date Bilateral Bilateral Disease Active 2015-02 Uni vers knee pain knee pain 03-04 ity of 00:00: [place] 00 Medical Branch Allergies, Adverse Reactions, Alerts Allergy Allergy Status Severity Reaction(s) Onset Inactive Treating Comm ents Source Name Type Date Date Clinician IODINE Drug Active Swelling 2015-02 Univers AND Class 03-04 ity of IODIDE 00:00: [place] CONTAINI 00 Medical NG Branch PRODUCTS OXYCODON DRUG Active Hallucinates 2015-02 Un aileen E 03-04 ity of HCL-OXYC 00:00: [place] ODONE- 00 Medical A Branch Iodine Propensi Active Swelling 2015-02 Univer s And ty to 03-04 ity of Iodide adverse 00:00: [place] Containi reaction 00 Medica l ng s Branch Products Oxycodon Propensi Active Hallucinatio 2015-02 Univers e ty to ns 03-04 ity of Hcl-Oxyc adverse 00:00: [place] odone-As reaction 00 Medica l a s Branch Social History Social Habit Start Date Stop Date Quantity Comments Source Exposure to Not sure University SARS-CoV-2 [place] Medical (event) Branch Tobacco use and 2021-01-01 2021-01-01 Never used Universit y of exposure 00:00:00 00:00:00 [facility] Alcohol intake 2021-01-01 2021-01-01 0 /d University of 00:00:00 00:00:00 [facility] History of 1991-01-01 Cigarette Smoker Universi ty of tobacco use 00:00:00 [facility] Sex Ass[birth year] Universit y of 00:00:00 00:00:00 [facility] Smoking Status Start Date Stop Date Source Former smoker 2021-01-01 00:00:00 2021-01-01 00:00:00 Universi of [facility] Medications Ordered Filled Start Stop Current Ordering Indication Dosage Frequency Signature Comments Components Source Medication Medication Date Date Medication? Clinician (SIG) Name Name adalimumab 2020-02 Yes 40mg inject 40 Un aileen (HUMIRA,CF, 1-08 mg under ity of PEN) 40 09:42: the skin [place] mg/0.4 mL 52 every 14 Medica l injection (fourteen) Bran ch days. dexAMETHaso 2020-02 Yes 2mg Take 2 mg U nivers ne 2 mg 08 by mouth 2 ity of tablet 09:41: (two) [place] 08 times Medical daily with Branch meals. Ibuprofen 2020-02- No Take by Uni vers (ADVIL 03-03 mouth. ity of LIQUI-GEL) 09:39: 00:00 [place] 200 mg 48 :00 Medical capsule Branch spironolact Yes 1{tbl} Take 1 Un aileen one-hydroch 9-29 tablet by ity of lorothiazid 00:00: mouth [place] e 25-25 mg 00 daily. Medical per tablet Branch doxepin 25 2020- No TAKE ONE Un aileen mg capsule 11-06 (1) ity of 00:00: 00:00 CAPSULE(S) [place] 00 :00 BY MOUTH Medical ONCE A DAY Branch AT BEDTIME. FLUAD QUAD ADMINISTER Univers ,64Y 9-14 01-01 0.5ML IN ity of UP,,PF, 60 00:00: 00:00 THE MUSCLE [place] mcg (15 mcg 00 :00 Medical x 4)/0.5 mL DIRECTED Bran ch Syrg methylPREDN 2015-02 84mg Take 21 Un aileen ISolone 03-04 tablets by ity o f (MEDROL, 00:00: 00:00 mouth [place] CHELLY,) 4 mg 00 :00 SEE-INSTRU Med ical tablets CTIONS. Branch follow package directions diclofenac 2015-02 75mg Take 1 Univ ers (VOLTAREN) 03-04 tablet by ity of 75 mg EC 00:00: 00:00 mouth 2 [place] tablet 00 :00 (two) Medical times [place] daily with meals. Vital Signs Vital Name Observation Time Observation Value Comments Source Systolic blood 2021-01-01 15:39:00 126 [facility]Hg[facility] Diastolic blood 2021-01-01 15:39:00 85 mm[Hg[facility] Heart rate 2021-01-01 15:38:00 130 /min [facility] Body temperature 2021-01-01 15:38:00 36.67 [place] Body height 2021-01-01 15:38:00 177.8 cm [facility] Body weight 2021-01-01 15:38:00 87.998 kg [facility] BMI 2021-01-01 15:38:00 27.84 kg/m2 [facility] Oxygen saturation in 2021-01-01 15:38:00 95 /min [facility] Arterial blood by [facility] Pulse oximetry Branch Procedures This patient has no known procedures. Encounters Start End Encounter Admission Attending Care Care Encounter Source Date/Time Date/Time Type Type Clinicians Facility Department ID 2021-01-22 2021-01-22 Outpatient Clint COFFMAN [facility] [id number] N-20 Univers 10:30:00 10:30:00 [facility] [id number] [facility] 2021-01-01 2021-01-01 Outpatient Clint COFFMAN [facility] [id number] [facility] 09:30:00 10:11:16 MAYRA carias [facility] 2021-01-01 2021-01-01 [facility] [id number] [facility] 09:22:18 09:52:18 Visit [facility] [id number] it y of Anshul [place] [id number] Angel Luis as IMAN?BLEA [id number] [address] MEDICAL OFFICE [facility] 2020-06-14 2020-06-14 Outpatient CONCEPCIÓN BERG [facility] [id number] [place] 00:00:00 00:00:[address] 2020-02-24 2020-02-24 Office [facility] [id number] 12:51:31 13:23:[address] [facility] [id number] Surgical [id number] Specialti [id number] autumn [place] Results This patient has no known results.
--- NOTE | 2021-01-06 20:48 | PN ---
Date of Progress Note: 01/03/2021 Subjective: Mr. Bell was admitted on 01/02/2021 for acute atrial fibrillation and CHF. Overnigh t, he has diuresed well. His heart rate went down to 80 from 135, on the amiodarone. I will dischar ge him home today on amiodarone 400 b.i.d., metoprolol, Lasix, losartan, anticoagulate him. I will h opefully plan eventually to have him do a stress test and/or heart catheterization and possibly cardi oversion in next 2 to 3 weeks. I will see him in the office soon. MARGARET/JOEL Voice ID: [id number] Report ID: [id number]
--- NOTE | 2021-01-06 21:03 | CON ---
Date of Consultation: 01/02/2021 Reason For Consultation: Congestive heart failure, atrial fibrillation, and pleural effusion. History Of Present Illness: Mr. Bell basically came to my office to have an echocardiogram. He was sent by his primary care, was found to have a low ejection fraction of 25%. He was very symptoma tic with shortness of breath, PND, orthopnea, pedal edema, and I sent him to the emergency room for a dmission. Past Medical History: Include asbestosis. Medications: He does not really take much medication at home. Allergies: HE IS ALLERGIC TO IODINE, OXYCODONE, AND ASPIRIN. Review of Systems: Negative. Social History: Negative. Family History: Noncontributory. Physical Examination: General: When he got admitted to the hospital, he was in mild respiratory distress. Vital Signs: He had atrial fibrillation, a rate of 134, blood pressure of 112/91, and O2 saturation was 97% on room air. HEENT: Negative. Neck: Supple. No bruit. Chest: Revealed rales at both bases. Cardiac: Revealed atrial fibrillation. Abdomen: Benign. Extremities: Revealed no clubbing, cyanosis, or edema. Diagnostic Data: Basically chest x-ray shows CHF. EKG showed atrial fibrillation. Creatinine was n ormal. Impression And Plan: 1.Acute systolic congestive heart failure. 2.Acute atrial fibrillation. The patient will be placed on IV amiodarone, Lasix, carvedilol, lisino pril, Lovenox. We will see how he does overnight. MARGARET/JOEL Voice ID: [id number] Report ID: [id number]
== END 2021-01-04 10:17 | disposition home or self-care (01) | DRG 308 ==
LOC: ER 16:12 → EDSTATUS 16:12 → ERHOLD 16:14
PROVIDERS: ADMIT Hospitalist; ATTEND Hospitalist
DX: I48.91 Unspecified atrial fibrillation (principal); I50.21 Acute systolic (congestive) heart failure; M06.9 Rheumatoid arthritis, unspecified; J84.10 Pulmonary fibrosis, unspecified; I95.9 Hypotension, unspecified; Z85.038 Personal history of other malignant neoplasm of large intestine; Z20.822 Contact with and (suspected) exposure to COVID-19; Z23 Encounter for immunization
CPT/HCPCS: 36415; 71045; 80048; 81003; 83735; 84439; 84443; 85025; 85027; 85610; 85730; 90471; J0282; J1650; J1940; J7060; Q2035; U0003

== ENCOUNTER 2021-01-15 07:00 | Day surgery (SDC) | payer OTHER, BC ==
[~2021-01-15 07:00] MED LIST: NA CHLORIDE 0.9% 500 ML ONE
[2021-01-15] MEDS ORDERED: MIDAZOLAM HCL 0 ML ONE (07:09)
[2021-01-15] MEDS ORDERED: FLUMAZENIL 0.1 MG/ML (5 mL VIAL) IV ONE (07:09)
[2021-01-15] MEDS ORDERED: ATROPINE SULF 1 MG/10 ML SYR IV ONE (07:09)
[2021-01-15] MEDS ORDERED: MIDAZOLAM HCL 5 ML ONE (07:11)
[2021-01-15 09:51] VITALS: TEMP 98; O2SAT 99
[2021-01-15 09:54] VITALS: BP 99/69
--- NOTE | 2021-01-15 11:09 | OP ---
Date of Procedure: 01/15/2021 Surgeon: Michael Escobedo MD Operator Supply: Yee Lucas. I will see the patient in the office next week on Friday. Procedure: Direct current cardioversion for atrial fibrillation. Indication: The patient is 70, new onset AFib and congestive heart failure, ejection fraction 25%, u nresponsive to p.o. amiodarone, on Xarelto. Has had an echocardiogram showing no thrombus with an EF 25%. Brought to the laborer driver today. He has been on amiodarone, Xarelto, Lasix, carvedilol. Did no t tolerate FADIA inhibitor because of hypotension. Procedure In Detail: In the laborer driver, he was given a total of 5 mg of IV push of Versed. He receive d 2 shocks 1 with 100 and the second one was 200 joules and he converted to sinus rhythm. There were no complications or blood loss. Postoperative Diagnosis: Successful cardioversion from atrial fibrillation to sinus rhythm. We will continue present regimen. When he wakes up, he will go home. MARGARET/JOEL Voice ID: [id number] Report ID: [id number]
--- NOTE | 2021-01-17 08:10 | EKG ---
Test Date: 2021-01-15 Test Time: 07:40:33 Bar Pilot: KAYODE MEASUREMENT RESULTS: Intervals: Rate: 80 IA: 162 QRSD: 58 QT: 394 QTc: 454 [place]: P: 48 IA: 162 QRS: 49 T: 221 INTERPRETIVE STATEMENTS: Normal sinus rhythm Low voltage QRS Nonspecific T wave abnormality Abnormal ECG Compared to ECG 09/29/1992 08:03:00 Low QRS voltage now present T-wave abnormality now present Electronically Signed On 01-17-21 08:03:57 RESERVOIR CARETAKER by Michael Escobedo
== END 2021-01-15 09:15 | disposition home or self-care (01) ==
LOC: CCL 07:00
DX: I48.0 Paroxysmal atrial fibrillation (principal); I50.21 Acute systolic (congestive) heart failure; J84.10 Pulmonary fibrosis, unspecified; M06.9 Rheumatoid arthritis, unspecified; Z87.891 Personal history of nicotine dependence; Z88.6 Allergy status to analgesic agent; Z91.041 Radiographic dye allergy status; Z20.822 Contact with and (suspected) exposure to COVID-19
CPT/HCPCS: 93005; 92960; U0003; J2250; J7040

== ENCOUNTER 2021-02-15 12:58 | Inpatient (IN) | payer OTHER, BC ==
--- NOTE | 2021-02-15 14:01 | RAD REPORT ---
EXAM DESCRIPTION: CT - Head Brain Wo Cont - 02/15/2021 1:40 pm CLINICAL HISTORY: Head injury status post fall COMPARISON: None TECHNIQUE: Computed axial tomography of the head was obtained. IV contrast was not requested. All CT scans are performed using dose optimization technique as appropriate and may include automated exposure control or mA/KV adjustment according to patient size. FINDINGS: An intracranial bleed is not seen . The ventricles are normal in caliber. No extra-axial fluid collection is noted. Fluid within the sinuses/ mastoids is not seen. IMPRESSION: No acute intracranial abnormality is seen. If patient's symptoms persist MRI of the bra in would be recommended.
--- NOTE | 2021-02-15 14:13 | RAD REPORT ---
EXAM DESCRIPTION: CT - Thorax Wo Con - 02/15/2021 1:40 pm CLINICAL HISTORY: Chest pain COMPARISON: April 2020 TECHNIQUE: Computed axial tomography of the chest was obtained. Contrast was not requested. All CT scans are performed using dose optimization technique as appropriate and may include automated exposure control or mA/KV adjustment according to patient size. FINDINGS: The evaluation of mediastinum, mesha and vessels is limited secondary to lack of IV contras t administration. Minimally displaced fracture of the lateral left fourth rib. Mildly displaced fracture mid lateral fi fth rib. Moderately displaced fracture posterior left six rib. Left basilar atelectasis. No pneumothorax No mediastinal hematoma seen. Moderate pulmonary fibrosis. Right upper lobe. Small right pleural effusion IMPRESSION: Left rib fractures with large left pleural effusion
--- NOTE | 2021-02-15 14:25 | RAD REPORT ---
EXAM DESCRIPTION: [place] Pa And Lat (2 Views)02/15/2021 1:53 pm CLINICAL HISTORY: Left rib pain COMPARISON: December 2020 FINDINGS: Fractures involving left fourth, fifth and 6 ribs better seen on the CT chest same date. Large left pleural effusion. Moderate pulmonary fibrosis. Mild right upper lobe acute opacities
--- NOTE | 2021-02-15 17:09 | ER ---
Nurse's Notes [facility] Name: Houston Bell Age: 71 yrs Sex: Male : 1950 Arrival Date: 02/15/2021 Time: 13:00 Bed 4 Private MD: Diagnosis: Pleural effusion in other conditions classified elsewhere Presentation: 02/15 13:09 Chief complaint: Patient states: Fell from standing and hit mouth on ground, hit left jl7 rib cage and left wrist, reports lip laceration will not stop bleeding. Coronavirus screen: At this time, the client does not indicate any symptoms associated with coronavirus-19. Ebola Screen: No symptoms or risks identified at this time. Initial Sepsis Screen: Does the patient meet any 2 criteria? No. Patient's initial sepsis screen is negative. Does the patient have a suspected source of infection? No. Patient's initial sepsis screen is negative. Risk Assessment: Do you want to hurt yourself or someone else? Patient reports no desire to harm self or others. Onset of symptoms was February 15, 2021. Care prior to arrival: None. 13:09 Method Of Arrival: Wheelchair [facility] 13:09 Acuity: JESSICA 3 jl7 13:09 Mechanism of Injury: Fall from standing position. Trauma event details: Injury occurred jl7 in the [facility], Injury occurred: at home. Injury occurred: February 15, 2021 Injury occurred at: 07:30. 18:58 Care prior to arrival: None. jl7 Triage Assessment: 13:13 General: Appears in no apparent distress. uncomfortable, Behavior is calm, cooperative. jl7 Pain: Denies pain. Trauma Activation: Not Applicable Physician: ED Physician; Name: ; Notified At: ; Arrived At: Physician: General Surgeon; Name: ; Notified At: ; Arrived At: Physician: Radiology; Name: ; Notified At: ; Arrived At: Physician: Respiratory; Name: ; Notified At: ; Arrived At: Physician: Lab; Name: ; Notified At: ; Arrived At: Historical: - Allergies: 13:13 Aspirin; jl7 13:13 Iodine (swelling and itching); jl7 13:13 Oxycodone; jl7 - Home Meds: 13:13 Xarelto oral [Active]; jl7 - PMHx: 13:13 asbestos; RA; Atrial fibrillation; Congestive heart failure; pulmonary fibrosis; jl7 - Immunization history:: Client reports receiving the 2nd dose of the Covid vaccine. - Social history:: Smoking status: Patient denies any tobacco usage or history of. - Immunization history: Last tetanus immunization: unknown. Screenin:09 Abuse screen: Denies threats or abuse. Denies injuries from another. Tuberculosis jl7 screening: No symptoms or risk factors identified. 15:01 Nutritional screening: No deficits noted. jl7 16:13 Fall Risk None identified. ld1 Primary Survey: 13:09 NO uncontrolled hemorrhage observed. A: Airway: patent. Breathing/Chest: Respiratory jl7 pattern: regular, Respiratory effort: spontaneous, unlabored. Circulation: Heart tones present. Skin color: pink, Skin temperature: warm. Disability Alert. Exposure/Environment: All clothing and personal items were removed. Pt's clothes not removed in triage. 13:45 Reassessment Airway Airway Patent Breathing/Chest Respiratory pattern Regular jl7 Respiratory effort Spontaneous Unlabored Chest inspection Symmetrical Circulation Color Ucon Disability Alert. Assessment: 13:09 Reassessment: GERARDO Cullen in triage assessing pt. jl7 16:13 General: Appears in no apparent distress. comfortable, Behavior is calm, cooperative, ld1 appropriate for age. Pain: Complains of pain in diaphragm Pain does not radiate. Pain currently is 3 out of 10 on a pain scale. Quality of pain is described as throbbing, Pain began suddenly, Is intermittent. Neuro: Level of Consciousness is awake, alert, obeys commands, Oriented to person, place, time, situation, Appropriate for age. Cardiovascular: Capillary refill < 3 seconds Patient's skin is warm and dry. Rhythm is sinus rhythm. Respiratory: Airway is patent Respiratory effort is even, unlabored, Respiratory pattern is regular, symmetrical. GI: Abdomen is flat, non-distended. : No signs and/or symptoms were reported regarding the genitourinary system. EENT: No signs and/or symptoms were reported regarding the EENT system. Derm: No signs and/or symptoms reported regarding the dermatologic system. Musculoskeletal: Reports pain in diaphragm. 18:35 Reassessment: Chest drainage system changed out. jl7 19:27 Reassessment: Patient and/or family updated on plan of care and expected duration. Pain as6 level reassessed. Vital Signs: 13:09 BP 119 / 78; Pulse 72; Resp 15; Temp 97.2; Pulse Ox 100% on R/A; Weight 80.74 kg; jl7 16:13 BP 94 / 68; Pulse 72; Resp 25; Pulse Ox 94% on R/A; ld1 16:41 BP 110 / 77; Pulse 73; Resp 30; Pulse Ox 95% on R/A; ld1 17:30 BP 123 / 78; Pulse 72; Resp 21; Pulse Ox 93% on R/A; jl7 18:56 BP 113 / 80; Pulse 70; Resp 15; Pulse Ox 97% ; jl7 Niki Coma Score: 13:09 Eye Response: spontaneous(4). Verbal Response: oriented(5). Motor Response: obeys jl7 commands(6). Total: 15. 16:13 Eye Response: spontaneous(4). Verbal Response: oriented(5). Motor Response: obeys jl7 commands(6). Total: 15. 16:41 Eye Response: spontaneous(4). Verbal Response: oriented(5). Motor Response: obeys jl7 commands(6). Total: 15. 17:30 Eye Response: spontaneous(4). Verbal Response: oriented(5). Motor Response: obeys jl7 commands(6). Total: 15. 18:56 Eye Response: spontaneous(4). Verbal Response: oriented(5). Motor Response: obeys jl7 commands(6). Total: 15. Trauma Score (Adult): 13:09 Eye Response: spontaneous(1); Verbal Response: oriented(1); Motor Response: obeys jl7 commands(2); Systolic BP: > 89 mm Hg(4); Respiratory Rate: 10 to 29 per min(4); [place] Score: 15; Trauma Score: 12 ED Course: 13:00 Patient arrived in ED. ds1 13:09 Patient has correct armband on for positive identification. jl7 13:09 Patient maintains SpO2 saturation greater than 95% on room air. jl7 13:13 Triage completed. jl7 13:13 Arm band placed on right wrist. jl7 13:40 CT Head Brain wo Cont In Process Unspecified. EDMS 13:40 Thorax Wo Con In Process Unspecified. EDMS 13:53 Chest Pa And Lat (2 Views) XRAY In Process Unspecified. EDMS 15:51 Subhash Palmer PA is PHCP. jr8 15:51 Williams Bradshaw MD is Attending Physician. jr8 16:00 urologist md on. Pulse ox on. NIBP on. Warm blanket given. jl7 16:00 Thermoregulation: warm blanket given to patient. jl7 16:13 Carolina Cervantes, RN is Primary Nurse. ld1 16:13 No provider procedures requiring assistance completed. ld1 17:08 Daryn Ray DO is Hospitalizing Provider. jr8 17:13 Inserted saline lock: 20 gauge in right antecubital area, using aseptic technique. ld1 18:00 Assist provider with chest tube insertion with 20 Fr. in left lateral chest wall. Tray jl7 was set up. Attached to wall suction, Chest tube inserted by Pino Roberts MD Placement verified by CXR, fluctuation of fluid, return of blood, Dressed with Vaseline gauze, foam tape, silk tape, 4X4s, Patient tolerated well. 18:53 Patient admitted, IV remains in place. intact, No redness/swelling at site. jl7 Administered Medications: 18:30 Drug: morphine 2 mg Route: IVP; Site: right antecubital; jl7 Intake: 18:52 Tubes: 1910ml (); Total: 1910ml. jl7 Outcome: 17:08 Decision to Hospitalize by Provider. jr8 19:51 Admitted to Med/surg Report called to attempted to call report Spoke to [facility] " Its tw5 shift change and it is crazy, try calling back in 10 min" 19:59 Admitted to Med/surg Report called to Spoke to Ya again she stated " It probably tw5 going to be a min try and call back later." 20:36 Condition: stable as6 20:36 Patient's length of stay in the Emergency Department was greater than 2 hours. pending as6 admission Patient's length of stay extended due to 20:37 Patient left the ED. as6 Signatures: Dispatcher [employer] [facility] Agnes Zapata ds1 Subhash Palmer PA PA jr8 Jolene Louis RN RN jl7 Carolina Cervantes, KIRSTIE RN ld1 Pita Simons tw5 Roly Omalley RN RN as6 Corrections: (The following items were deleted from the chart) 18:53 16:00 Patient admitted, IV remains in place. intact, No redness/swelling at site. jl7 jl7
--- NOTE | 2021-02-15 17:09 | EDPHYS ---
Physician Documentation [facility] Name: Houston Bell Age: 71 yrs Sex: Male : 1950 Arrival Date: 02/15/2021 Time: 13:00 Bed 4 Private MD: ED Physician Williams Bradshaw HPI: 02/15 17:08 This 71 yrs old Male presents to ER via Wheelchair with complaints of Fall Injury. jr8 17:08 This is a 71-year-old male patient who presented to the emergency room status post jr8 fall. Patient stated that he was coming inside from the garage and tripped falling face first. Hit his lip and left side of his chest. Has had left-sided chest pain since incident. Denies any other complaints at this time. Historical: - Allergies: 13:13 Aspirin; jl7 13:13 Iodine (swelling and itching); jl7 13:13 Oxycodone; jl7 - Home Meds: 13:13 Xarelto oral [Active]; jl7 - PMHx: 13:13 asbestos; RA; Atrial fibrillation; Congestive heart failure; pulmonary fibrosis; jl7 - Immunization history:: Client reports receiving the 2nd dose of the Covid vaccine. - Social history:: Smoking status: Patient denies any tobacco usage or history of. - Immunization history: Last tetanus immunization: unknown. ROS: 17:08 Eyes: Negative for injury, pain, redness, and discharge, ENT: Negative for and jr8 discharge. Small avulsion of skin to the lip with mild bleeding Neck: Negative for injury, pain, and swelling. 17:08 Abdomen/GI: Negative for abdominal pain, nausea, vomiting, diarrhea, and constipation, Back: Negative for injury and pain, MS/Extremity: Negative for injury and deformity, Skin: Negative for injury, rash, and discoloration, Neuro: Negative for headache, weakness, numbness, tingling, and seizure. 17:08 Cardiovascular: Positive for chest pain, with movement. 17:08 Respiratory: Positive for shortness of breath. Exam: 17:08 Constitutional: This is a well developed, well nourished patient who is awake, alert, jr8 and in no acute distress. Eyes: Pupils equal round and reactive to light, extra-ocular motions intact. Lids and lashes normal. Conjunctiva and sclera are non-icteric and not injected. Cornea within normal limits. Periorbital areas with no swelling, redness, or edema. ENT: Nares patent. No nasal discharge, no septal abnormalities noted. Tympanic membranes are normal and external auditory canals are clear. Oropharynx with no redness, swelling, or masses, exudates, or evidence of obstruction, uvula midline. Mucous membranes moist. Neck: Trachea midline, no thyromegaly or masses palpated, and no cervical lymphadenopathy. Supple, full range of motion without nuchal rigidity, or vertebral point tenderness. No Meningismus. Cardiovascular: Regular rate and rhythm with a normal S1 and S2. No gallops, murmurs, or rubs. Normal PMI, no JVD. No pulse deficits. 17:08 Abdomen/GI: Soft, non-tender, with normal bowel sounds. No distension or tympany. No guarding or rebound. No evidence of tenderness throughout. Back: No spinal tenderness. No costovertebral tenderness. Full range of motion. Skin: Warm, dry with normal turgor. Normal color with no rashes, no lesions, and no evidence of cellulitis. MS/ Extremity: Pulses equal, no cyanosis. Neurovascular intact. Full, normal range of motion. Neuro: Awake and alert, GCS 15, oriented to person, place, time, and situation. Cranial nerves II-XII grossly intact. Motor strength 5/5 in all extremities. Sensory grossly intact. 17:08 Chest/axilla: Inspection: normal, Palpation: tenderness, that is mild, of the left lateral anterior chest and left lateral posterior chest. 17:08 Respiratory: the patient does not display signs of respiratory distress, Respirations: tachypnea, that is mild, Breath sounds: decreased breath sounds, that are mild, are heard in the left posterior upper lobe and left posterior lower lobe. Vital Signs: 13:09 BP 119 / 78; Pulse 72; Resp 15; Temp 97.2; Pulse Ox 100% on R/A; Weight 80.74 kg; jl7 16:13 BP 94 / 68; Pulse 72; Resp 25; Pulse Ox 94% on R/A; ld1 16:41 BP 110 / 77; Pulse 73; Resp 30; Pulse Ox 95% on R/A; ld1 17:30 BP 123 / 78; Pulse 72; Resp 21; Pulse Ox 93% on R/A; jl7 18:56 BP 113 / 80; Pulse 70; Resp 15; Pulse Ox 97% ; jl7 Ward Coma Score: 13:09 Eye Response: spontaneous(4). Verbal Response: oriented(5). Motor Response: obeys jl7 commands(6). Total: 15. 16:13 Eye Response: spontaneous(4). Verbal Response: oriented(5). Motor Response: obeys jl7 commands(6). Total: 15. 16:41 Eye Response: spontaneous(4). Verbal Response: oriented(5). Motor Response: obeys jl7 commands(6). Total: 15. 17:30 Eye Response: spontaneous(4). Verbal Response: oriented(5). Motor Response: obeys jl7 commands(6). Total: 15. 18:56 Eye Response: spontaneous(4). Verbal Response: oriented(5). Motor Response: obeys jl7 commands(6). Total: 15. Trauma Score (Adult): 13:09 Eye Response: spontaneous(1); Verbal Response: oriented(1); Motor Response: obeys jl7 commands(2); Systolic BP: > 89 mm Hg(4); Respiratory Rate: 10 to 29 per min(4); Niki Score: 15; Trauma Score: 12 MDM: 15:51 Patient medically screened. [facility] 17:07 Data reviewed: vital signs, nurses notes, lab test result(s), radiologic studies, CT [facility] scan, plain films. Data interpreted: Pulse oximetry: on room air is 90 %. Interpretation: borderline. Counseling: I had a detailed discussion with the patient and/or guardian regarding: the historical points, exam findings, and any diagnostic results supporting the discharge/admit diagnosis, lab results, radiology results, the need for further work-up and treatment in the hospital. ED course: Dr. Roberts consulted for chest tube placement for drainage of the large left pleural effusion. Will see patient in the emergency room and do it here.. 02/15 17:05 Order name: CBC with Diff; Complete Time: 18:12 [facility] 02/15 17:05 Order name: Basic Metabolic Panel; Complete Time: 18:12 [facility] 02/15 17:05 Order name: Protime (+inr); Complete Time: 18:12 [facility] 02/15 17:05 Order name: Ptt, Activated; Complete Time: 18:12 jr8 02/15 17:40 Order name: SARS-COV-2 RT PCR; Complete Time: 18:26 EDMS 02/15 13:16 Order name: Chest Pa And Lat (2 Views) XRAY; Complete Time: 15:51 jl7 02/15 13:16 Order name: CT Head Brain wo Cont; Complete Time: 15:51 jl7 02/15 13:27 Order name: Thorax Wo Con; Complete Time: 15:51 EDMS 02/15 17:05 Order name: IV; Complete Time: 17:13 jr8 02/15 18:09 Order name: CXR XRAY cs9 02/15 18:41 Order name: RAD; Complete Time: 15:26 EDMS 02/15 19:36 Order name: Body Fluid Cell Count; Complete Time: 15:26 EDMS Administered Medications: 18:30 Drug: morphine 2 mg Route: IVP; Site: right antecubital; jl7 Disposition Summary: 02/15/21 17:08 Hospitalization Ordered Hospitalization Status: Inpatient Admission [facility] Provider: Daryn Ray [facility] Location: Telemetry/MedSur (Inpatient) [facility] Condition: Stable jr8 Problem: new jr8 Symptoms: have improved jr8 Bed/Room Type: Standard [facility] Room Assignment: [facility](02/15/21 19:16) Diagnosis - Pleural effusion in other conditions classified elsewhere jr Forms: - Medication Reconciliation Form jr8 - SBAR form jr8 Addendum: 02/20/2021 13:12 Co-signature as Attending Physician, Williams Bradshaw MD I agree with the assessment and k dr plan of care. Signatures: Dispatcher [employer] [facility] Williams Bradshaw MD MD [facility] Subhash Palmer PA PA jr8 Inge Lucas, RN RN cg Jolene Louis RN RN jl7 Corrections: (The following items were deleted from the chart) 02/15 17:40 17:26 CORONAVIRUS+ ordered. [facility] EDWI 19:16 17:08 jr8 cg
--- NOTE | 2021-02-15 17:36 | P.HP ---
Certification for Inpatient Patient admitted to: Inpatient With expected LOS: >2 Midnights Patient will require the following post-hospital care: None Practitioner: I am a practitioner with admitting privileges, knowledge of patient current condition, hospital course, and medical plan of care. Services: Services provided to patient in accordance with Admission requirements found in Title 42 Section 412.3 of the Code of Federal Regulations Patient History Date of Service: 02/15/21 Primary Care Provider: Dr. Self; Pulmonary-Dr. Brewster; Cardiology-Dr. Escobedo Reason for admission: Fall, shortness of breath History of Present Illness: 71-year-old male suffered a fall this morning. He bit his lip. He subsequently had pain to the left chest wall. Some shortness of breath noted. Patient with underlying history of chronic systolic CHF with prior EF around 25%, atrial fibrillation on chronic anticoagulation therapy, rheumatoid arthritis, hypertension. Patient denied any significant nausea, vomiting. No hemoptysis or hematemesis. Patient seen in the ER. CT head unremarkable. CT chest showed a large left pleural effusion. Rib fractures to the fourth fifth and 6 ribs. Lab pending. Case was discussed with pulmonology and surgery. Pulmonology recommended a chest tube. Surgery to perform chest tube in the ER. Patient admitted for further evaluation and treatment. Allergies Iodinated Contrast Media [Iodinated Contrast Media - IV Dye] Allergy (Verified 01/12/21 16:05) swelling , whelts aspirin [From Percodan] Adverse Reaction (Verified 01/12/21 16:05) hallucinations oxycodone [From Percodan] Adverse Reaction (Verified 01/12/21 16:05) hallucinations Home medications list reviewed: Yes Home Medications: Vit A/Vit C/Vit E/Zinc/Copper [Icaps Areds Formula Dr Tablet] 1 each PO DAILY 04/18/16 Dexamethasone [Decadron] 2.5 mg BID 01/02/21 Famotidine [Pepcid] 40 mg DAILY 01/02/21 Amiodarone HCl [Cordarone*] 2 tab PO BID 14 Days #56 tab 01/04/21 Apixaban [Eliquis] 5 mg PO BID 30 Days #60 tablet 01/04/21 Carvedilol [Coreg] 3.125 mg PO BID 30 Days #60 tablet 01/04/21 Furosemide [Lasix*] 40 mg PO DAILY 30 Days #30 tab 01/04/21 Rivaroxaban [Xarelto] 20 mg PO DAILY AT SUPPER 30 Days #30 tablet 01/04/21 - Past Medical/Surgical History -: Rheumatoid arthritis -: Pulmonary fibrosis -: Atrial fibrillation on chronic anticoagulation therapy -: Chronic systolic CHF with EF of 25% -: Hypertension -: Colon cancer resection -: Knee surgery -: Shoulder surgery -: Tonsillectomy -: Cardioversion December 2020 Psychosocial/ Personal History: Patient lives at home. - Family History Mother -: Heart disease ([place]) Brother -: Heart disease (Congestive heart failure) - Social History Smoking Status: Never smoker Alcohol use: No CD- Drugs: No Caffeine use: No Place of Residence: Home Review of Systems General: As per HPI Eyes: Unremarkable ENT: As per HPI Respiratory: Shortness of Breath, As per HPI Cardiovascular: Unremarkable Gastrointestinal: Unremarkable Genitourinary: Unremarkable Musculoskeletal: Pedal edema, As per HPI Integumentary: As per HPI Neurological: Unremarkable Lymphatics: Unremarkable Assessment and Plan - Plan COVID: Pending Chest x-ray: COMPARISON: December 2020 FINDINGS: Fractures involving left fourth, fifth and 6 ribs better seen on the CT chest same date. Large left pleural effusion. Moderate pulmonary fibrosis. Mild right upper lobe acute opacities CT head: COMPARISON: None TECHNIQUE: Computed axial tomography of the head was obtained. IV contrast was not requested. All CT scans are performed using dose optimization technique as appropriate and may include automated exposure control or mA/KV adjustment according to patient size. FINDINGS: An intracranial bleed is not seen . The ventricles are normal in caliber. No extra-axial fluid collection is noted. Fluid within the sinuses/ mastoids is not seen. IMPRESSION: No acute intracranial abnormality is seen. If patient's symptoms persist MRI of the brain would be recommended. CT scan: COMPARISON: April 2020 TECHNIQUE: Computed axial tomography of the chest was obtained. Contrast was not requested. All CT scans are performed using dose optimization technique as appropriate and may include automated exposure control or mA/KV adjustment according to patient size. FINDINGS: The evaluation of mediastinum, mesha and vessels is limited secondary to lack of IV contrast administration. Minimally displaced fracture of the lateral left fourth rib. Mildly displaced fracture mid lateral fifth rib. Moderately displaced fracture posterior left six rib. Left basilar atelectasis. No pneumothorax No mediastinal hematoma seen. Moderate pulmonary fibrosis. Right upper lobe. Small right pleural effusion IMPRESSION: Left rib fractures with large left pleural effusion Physical Exam: GENERAL: The patient is a well-developed, well-nourished, in no apparent distress. Alert and oriented x3. VITAL SIGNS: Reviewed HEENT: Head is normocephalic and atraumatic. Extraocular muscles are intact. Pupils are equal, round, and reactive to light and accommodation. Nares appeared normal. Patient bit his lip during his fall.. NECK: Supple. No carotid bruits. No lymphadenopathy or thyromegaly. LUNGS: Decreased to the left side. Pain to the left side HEART: Regular rate and rhythm, no appreciable gallops, rubs, murmurs or extra heart sounds ABDOMEN: Soft, nontender, and nondistended. Positive bowel sounds. No hepatosplenomegaly was noted. EXTREMITIES: Without any cyanosis, clubbing, rash, lesions or peripheral edema. NEUROLOGIC: The patient is oriented to person, place and time. Strength and sensation are grossly intact. Face is symmetric. SKIN: Normal color, turgor and temperature. Minimal pitting edema to the lower extremities. Impression: Fall leading to fractures to the left fourth, fifth and sixth rib Shortness of breath secondary to large left pleural effusion Chronic systolic CHF with prior EF of 25% Atrial fibrillation on chronic anticoagulation therapy Hypertension Rheumatoid arthritis Plan: Fall leading to fractures to the left fourth, fifth and sixth rib: Patient will be admitted for further evaluation and treatment. We'll provide medication for pain. ER provider discussed case with pulmonology and surgery. Surgery plans to perform chest tube to the left side. Await further recommendations from pulmonary. Will need to restart his home medications. Provide medication for pain. Anticipate improvement over the next 2 to 3 days. Shortness of breath secondary to large left pleural effusion: Surgery consulted for placement of chest tube on the left side. Chronic systolic CHF with prior EF of 25%: Overall stable. Patient on room air. Continue carvedilol 3.125 mg 1 pill twice daily and Xarelto 20 mg daily. Patient also takes Lasix 40 mg 1 pill twice daily. Atrial fibrillation on chronic anticoagulation therapy: Continue with Xarelto 20 mg daily tomorrow. Continue with his carvedilol as stated above. Hypertension: Continue carvedilol Rheumatoid arthritis: Patient takes Humira at home. Code Status: Full Code DVT prophylaxis: Xarelto Advanced Care Planning-30 minutes: Home at discharge Discharge Plan: Home Plan to discharge in: Greater than 2 days - Advance Directives Does patient have a Living Will: No Does patient have a Durable POA for Healthcare: No - Code Status/Comfort Care Code Status Assessed: Yes (Full code) Time Spent Managing Pts Care (In Minutes): 55
[2021-02-15 17:41] LABS: Absolute Lymphocytes (CBC) 1.4 K/uL (0.7-4.9); Lymphocytes % 9.7 % (15.3-44.8); MPV 7.9 fL (7.6-11.3); RBC Red Blood Cell Count 2.95 M/uL (4.33-5.43)
[2021-02-15 17:45] LABS: Protime INR 1.6
[2021-02-15] MEDS ORDERED: LIDOCAINE 1% 20 ML MDV ONE (17:51)
[2021-02-15 17:53] LABS: Potassium 4.2 mmol/L (3.5-5.1)
[2021-02-15] MEDS ORDERED: MORPHINE 2 MG/ML SYR ONE (18:05)
--- NOTE | 2021-02-15 18:27 | P.CNS ---
Date of Consult: 02/15/21 PC: I was asked to see this 71-year-old female in regards to a left pleural effusion. HPC: Patient has been treated over the last few days and week because of a bilateral pleural effusion. Today he had a fall sustained a laceration to his lip, and came to the emergency room for evaluation. On chest x-ray is found to have a large increase size of the left pleural effusion. PMHx: COPD, CHF Social Hx: Allergic to iodine contrast, aspirin and oxycodone Sys R: Mildly short of breath at the current time, O2 sats are stable on O2 O/E: Awake alert vital signs are stable HEENT: Small laceration left lower lip Chest: Diminished air entry left side Abd: Negative [place]: Intact Data: CT scan shows large left-sided pleural effusion Impression: Left pleural effusion [smaller right] Plan: I will place a left-sided thoracostomy catheter on this patient. The risks of this procedure have been discussed. The possibility of bleeding, infection, injury to surrounding structures were outlined. The possibility that it may not be definitive treatment and require certain other procedures was explained. He understands and wants to proceed.
--- NOTE | 2021-02-15 18:38 | P.OP ---
Preoperative diagnosis: Left pleural effusion Postoperative diagnosis: The same Primary procedure: Insertion of left thoracostomy catheter Anesthesia: Local Estimated blood loss: Less than 10 cc Specimen: Specimen sent to lab for cytology Operative Technique: In the emergency room, after obtaining informed consent and a brief timeout, the patient was positioned at 45 degrees with his left arm behind his head. The left chest was prepped with a Betadine solution, and draped in usual aseptic manner. 1% lidocaine was injected into the intercostal space between the fourth and fifth ribs. A skin incision was made. Through this we were able to use the Cook catheter and a finder needle was placed into the intercostal space. Gentle pressure allowed us to pop into the pleural space where we encountered watery, blood-tinged fluid. The syringe was removed from the needle. The guidewire was now passed down through the needle. The dilators were used to progressively open the wound. A Cook catheter was now slid over the catheter to approximately 18 cm. It was then sutured in place. A sterile dressing was now applied. The catheter was attached to the Pleur-evac. We obtained approximately 2 L of blood-tinged fluid. Specimens of this were sent for cytology as well as culture and sensitivity. A chest x-ray was obtained. It showed the catheter in good position with partial resolution of the left-sided pleural effusion. The patient was in a stable condition at the end of the procedure. Complications: None Drain(s): Other (Thoracostomy catheter) Condition: Good
--- NOTE | 2021-02-15 18:40 | RAD REPORT ---
EXAM DESCRIPTION: SCARChest Single View02/15/2021 6:20 pm CLINICAL HISTORY: Device placement chest tube placement IMPRESSION: Left chest tube has been placed with its tip in the medial lower right hemithorax. No pneumothorax . The amount of pleural effusion has diminished
[2021-02-15] MEDS ORDERED: ACETAMINOPHEN 500 MG TAB PO PRN (18:55)
[2021-02-15] MEDS: carvediloL 3.125 MG TAB PO SCH (18:55)
[2021-02-15] MEDS ORDERED: ONDANSETRON 4 MG/2 ML VIAL IV PRN (18:55)
[2021-02-15 19:36] LABS: Appearance TURBID (CLEAR); Body Fluid Source PLEURAL; Color of fluid Red (COLORLESS)
[2021-02-15 19:39] LABS: Body Fluid WBC 1613 /mm^3
[2021-02-15] MEDS ORDERED: AMIODARONE HCL 200 MG TAB PO SCH (21:00)
[2021-02-15 21:48] VITALS: BMI 25.5
[2021-02-15] MEDS ORDERED: AMIODARONE HCL 200 MG TAB PO ONE (23:30)
[2021-02-16] MEDS: carvediloL 3.125 MG TAB PO SCH ×2 (05:54→16:54)
[2021-02-16 06:09] LABS: Absolute Lymphocytes (CBC) 1.7 K/uL (0.7-4.9); Hematocrit 27.1 % (39.6-49.0); Lymphocytes % 12.6 % (15.3-44.8); MPV 7.9 fL (7.6-11.3); RBC Red Blood Cell Count 3.07 M/uL (4.33-5.43)
--- NOTE | 2021-02-16 06:10 | P.PN ---
Subjective Date of Service: 02/16/21 Primary Care Provider: Dr. Self; Pulmonary-Dr. Brewster; Cardiology-Dr. Escobedo Chief Complaint: Fall, shortness of breath Subjective: Improving Physical Examination - Vital Signs Temperature: 97.2 F Blood Pressure: 123/75 Pulse: 72 Respirations: 18 - Studies Laboratory Data (last 24 hrs) 02/15/21 17:20: PT 18.5 H, INR 1.60, APTT 45.4 H 02/15/21 17:20: Sodium 138, Potassium 4.2, BUN 32 H, Creatinine 1.28, Glucose 121 H 02/15/21 17:20: WBC 14.10 H, Hgb 8.3 L, Hct 26.0 L, Plt Count 293 Assessment & Plan Discharge Plan: Home Plan to discharge in: 72 Hours Physician Review Additional Text: COVID: Pending Chest x-ray: COMPARISON: December 2020 FINDINGS: Fractures involving left fourth, fifth and 6 ribs better seen on the CT chest same date. Large left pleural effusion. Moderate pulmonary fibrosis. Mild right upper lobe acute opacities CT head: COMPARISON: None TECHNIQUE: Computed axial tomography of the head was obtained. IV contrast was not requested. All CT scans are performed using dose optimization technique as appropriate and may include automated exposure control or mA/KV adjustment according to patient size. FINDINGS: An intracranial bleed is not seen . The ventricles are normal in caliber. No extra-axial fluid collection is noted. Fluid within the sinuses/ mastoids is not seen. IMPRESSION: No acute intracranial abnormality is seen. If patient's symptoms persist MRI of the brain would be recommended. CT scan: COMPARISON: April 2020 TECHNIQUE: Computed axial tomography of the chest was obtained. Contrast was not requested. All CT scans are performed using dose optimization technique as appropriate and may include automated exposure control or mA/KV adjustment according to patient size. FINDINGS: The evaluation of mediastinum, mesha and vessels is limited secondary to lack of IV contrast administration. Minimally displaced fracture of the lateral left fourth rib. Mildly displaced fracture mid lateral fifth rib. Moderately displaced fracture posterior left six rib. Left basilar atelectasis. No pneumothorax No mediastinal hematoma seen. Moderate pulmonary fibrosis. Right upper lobe. Small right pleural effusion IMPRESSION: Left rib fractures with large left pleural effusion Surgery: Date of procedure: 02/15/2021 Surgeon: Pino Roberts MD Preoperative diagnosis: Left pleural effusion Postoperative diagnosis: Same Primary procedure: Insertion of left thoracostomy catheter Estimated blood loss: Less than 10 cc Follow up CXR 02/16/2021: COMPARISON: Chest Single View dated 02/15/2021; Chest Pa And Lat (2 Views) dated 02/15/2021; Chest Single View dated 01/04/2021; Chest Single View dated 01/02/2021; Thorax Wo Con dated 02/15/2021; Thorax Wo Con dated 04/25/2020 FINDINGS: Lines: Left-sided chest tube in place at the left lung base. Lungs: Atelectasis as a result of the effusion on left side. Background of chronic interstitial lung disease. Pleural: Moderate to large left pleural effusion is unchanged. Small right pleural effusion on the chest CT not well seen. Cardiac: The heart size is within normal limits. Bones: No acute fractures. IMPRESSION: Left-sided chest tube in similar positioning with moderate to large left effusion and associated atelectasis. Background of chronic lung changes. Physical Exam: GENERAL: The patient is a well-developed, well-nourished, in no apparent distress. Alert and oriented x3. VITAL SIGNS: Reviewed HEENT: Head is normocephalic and atraumatic. Extraocular muscles are intact. Pupils are equal, round, and reactive to light and accommodation. Nares appeared normal. Patient bit his lip during his fall.. NECK: Supple. No carotid bruits. No lymphadenopathy or thyromegaly. LUNGS: Better air movement to the left side. HEART: Regular rate and rhythm, no appreciable gallops, rubs, murmurs or extra heart sounds ABDOMEN: Soft, nontender, and nondistended. Positive bowel sounds. No hepatosple nomegaly was noted. EXTREMITIES: Without any cyanosis, clubbing, rash, lesions or peripheral edema. NEUROLOGIC: The patient is oriented to person, place and time. Strength and sensation are grossly intact. Face is symmetric. SKIN: Normal color, turgor and temperature. Minimal pitting edema to the lower extremities. Impression: Fall leading to fractures to the left fourth, fifth and sixth rib Shortness of breath secondary to large left pleural effusion status post left thoracostomy catheter Chronic systolic CHF with prior EF of 25% Atrial fibrillation on chronic anticoagulation therapy Hypertension Rheumatoid arthritis Pulmonary fibrosis Plan: Fall leading to fractures to the left fourth, fifth and sixth rib: Patient had chest tube placed yesterday. 2 L removed. Continue with chest tube. Await recommendations by surgery and pulmonology. Anticipate improvement over the next 2 to 3 days. Shortness of breath secondary to large left pleural effusion status post left thoracostomy catheter: 2 L removed yesterday. Chest tube in place. X-ray shows improvement. Await recommendations from pulmonology. Chronic systolic CHF with prior EF of 25%: Overall stable. Patient on room air. Continue carvedilol 3.125 mg 1 pill twice daily and Xarelto 20 mg daily. Emerita ent also takes Lasix 40 mg 1 pill twice daily. Atrial fibrillation on chronic anticoagulation therapy: Continue with Xarelto 20 mg daily. Continue with his carvedilol as stated above. Hypertension: Continue carvedilol Rheumatoid arthritis: Patient takes Humira at home. Provide tramadol for pain. Pulmonary fibrosis: Overall stable Code Status: Full Code DVT prophylaxis: Xarelto Advanced Care Planning-30 minutes: Home at discharge Time Spent Managing Pts Care (In Minutes): 55
[2021-02-16 06:20] LABS: Magnesium 2.9 mg/dL (1.8-2.4); Potassium 4.3 mmol/L (3.5-5.1)
[2021-02-16 06:56] LABS: Urine Appearance CLEAR (Clear); Urine Bilirubin NEGATIVE (Negative); Urine Blood NEGATIVE (Negative); Urine Color YELLOW (Yellow); Urine Glucose NEGATIVE (Negative); Urine Protein NEGATIVE (Negative); Urine pH 6.5 (5.0-7.0)
[2021-02-16 07:06] LABS: Urine Microscopic Reflex NO UMIC
--- NOTE | 2021-02-16 07:22 | RAD REPORT ---
EXAM DESCRIPTION: RAD - Chest Single View - 02/16/2021 5:47 am CLINICAL HISTORY: follow up chest tube placement COMPARISON: Chest Single View dated 02/15/2021; Chest Pa And Lat (2 Views) dated 02/15/2021; Chest S calin View dated 01/04/2021; Chest Single View dated 01/02/2021; Thorax Wo Con dated 02/15/2021; Thora x Wo Con dated 04/25/2020 FINDINGS: Lines: Left-sided chest tube in place at the left lung base. Lungs: Atelectasis as a result of the effusion on left side. Background of chronic interstitial lung disease. Pleural: Moderate to large left pleural effusion is unchanged. Small right pleural effusion on the ch est CT not well seen. Cardiac: The heart size is within normal limits. Bones: No acute fractures. Other: IMPRESSION: Left-sided chest tube in similar positioning with moderate to large left effusion and as sociated atelectasis. Background of chronic lung changes.
[2021-02-16] MEDS: VIT A PO SCH ×2 (08:53→20:20)
[2021-02-16] MEDS: ZINC PO SCH ×2 (08:53→20:20)
[2021-02-16] MEDS: VIT C PO SCH ×2 (08:53→20:20)
[2021-02-16] MEDS: COPPER PO SCH ×2 (08:53→20:20)
[2021-02-16] MEDS: VIT E PO SCH ×2 (08:53→20:20)
[2021-02-16] MEDS: [UNRECOGNIZED DRUG - OTHER] PO SCH ×2 (08:53→20:20)
[2021-02-16] MEDS: FUROSEMIDE 40 MG TABLET PO SCH ×2 (08:54→16:53)
[2021-02-16] MEDS: AMIODARONE HCL 200 MG TAB PO SCH ×2 (08:54→20:21)
[2021-02-16] MEDS: TRAMADOL HCL 50 MG TAB PO PRN ×2 (11:48→23:02)
[2021-02-16] MEDS: RIVAROXABAN 20 MG TABLET PO SCH (16:54)
[2021-02-17 05:09] LABS: Hematocrit 29.2 % (39.6-49.0); Lymphocytes % 17.8 % (15.3-44.8); MPV 7.8 fL (7.6-11.3); RBC Red Blood Cell Count 3.32 M/uL (4.33-5.43)
[2021-02-17 05:10] LABS: Absolute Lymphocytes (CBC) 2.2 K/uL (0.7-4.9)
[2021-02-17 05:23] LABS: Magnesium 2.3 mg/dL (1.8-2.4); Potassium 4.1 mmol/L (3.5-5.1)
[2021-02-17] MEDS: carvediloL 3.125 MG TAB PO SCH ×3 (05:25→17:35)
--- NOTE | 2021-02-17 05:51 | P.PN ---
Subjective Date of Service: 02/17/21 Primary Care Provider: Dr. Self; Pulmonary-Dr. Brewster; Cardiology-Dr. Escobedo Chief Complaint: Fall, shortness of breath Subjective: Improving Physical Examination - Vital Signs Temperature: 97.8 F Blood Pressure: 94/59 Pulse: 76 Respirations: 17 Pulse Ox (%): 97 Assessment & Plan Discharge Plan: Home Plan to discharge in: 24 Hours Physician Review Additional Text: COVID: Pending Chest x-ray: COMPARISON: December 2020 FINDINGS: Fractures involving left fourth, fifth and 6 ribs better seen on the CT chest same date. Large left pleural effusion. Moderate pulmonary fibrosis. Mild right upper lobe acute opacities CT head: COMPARISON: None TECHNIQUE: Computed axial tomography of the head was obtained. IV contrast was not requested. All CT scans are performed using dose optimization technique as appropriate and may include automated exposure control or mA/KV adjustment according to patient size. FINDINGS: An intracranial bleed is not seen . The ventricles are normal in caliber. No extra-axial fluid collection is noted. Fluid within the sinuses/ mastoids is not seen. IMPRESSION: No acute intracranial abnormality is seen. If patient's symptoms persist MRI of the brain would be recommended. CT scan: COMPARISON: April 2020 TECHNIQUE: Computed axial tomography of the chest was obtained. Contrast was not requested. All CT scans are performed using dose optimization technique as appropriate and may include automated exposure control or mA/KV adjustment according to patient size. FINDINGS: The evaluation of mediastinum, mesha and vessels is limited secondary to lack of IV contrast administration. Minimally displaced fracture of the lateral left fourth rib. Mildly displaced fracture mid lateral fifth rib. Moderately displaced fracture posterior left six rib. Left basilar atelectasis. No pneumothorax No mediastinal hematoma seen. Moderate pulmonary fibrosis. Right upper lobe. Small right pleural effusion IMPRESSION: Left rib fractures with large left pleural effusion Surgery: Date of procedure: 02/15/2021 Surgeon: Pino Roberts MD Preoperative diagnosis: Left pleural effusion Postoperative diagnosis: Same Primary procedure: Insertion of left thoracostomy catheter Estimated blood loss: Less than 10 cc Follow up CXR 02/17/2021: COMPARISON: Chest Single View dated 02/16/2021; Chest Single View dated 02/15/2021; Chest Pa And Lat (2 Views) dated 02/15/2021; Chest Single View dated 01/04/2021; Thorax Wo Con dated 02/15/2021 FINDINGS: Lines: Left-sided chest tube in place the lung bases Lungs: Chronic lung changes in the right lung. Increasing opacification of the aerated left upper lobe. Much of the left lung remains atelectatic Pleural: Left pleural effusion remains moderate, marginally smaller Cardiac: Obscured Bones: No acute fractures. IMPRESSION: Left pleural effusion is slightly decreased. Increased opacification of the aerated left upper lobe could reflect re-expansion edema. Background of chronic lung changes. Physical Exam: GENERAL: The patient is a well-developed, well-nourished, in no apparent distress. Alert and oriented x3. VITAL SIGNS: Reviewed HEENT: Head is normocephalic and atraumatic. Extraocular muscles are intact. Pupils are equal, round, and reactive to light and accommodation. Nares appeared normal. Patient bit his lip during his fall.. NECK: Supple. No carotid bruits. No lymphadenopathy or thyromegaly. LUNGS: Better air movement to the left side. HEART: Regular rate and rhythm, no appreciable gallops, rubs, murmurs or extra heart sounds ABDOMEN: Soft, nontender, and nondistended. Positive bowel sounds. No hepatosplenomegaly was noted. EXTREMITIES: Without any cyanosis, clubbing, rash, lesions or peripheral edema. NEUROLOGIC: The patient is oriented to person, place and time. Strength and sensation are grossly intact. Face is symmetric. SKIN: Normal color, turgor and temperature. Minimal pitting edema to the lower extremities. Impression: Fall leading to fractures to the left fourth, fifth and sixth rib Shortness of breath secondary to large left pleural effusion status post left thoracostomy catheter Chronic systolic CHF with prior EF of 25% Atrial fibrillation on chronic anticoagulation therapy Hypertension Rheumatoid arthritis Pulmonary fibrosis Plan: Fall leading to fractures to the left fourth, fifth and sixth rib: Patient had chest tube placed upon admission. 2 L removed. Chest tube in place. Will discuss with pulmonology about plan of care. Pulmonology considering removing chest tube soon. Home likely within 24 to 48 hours. Shortness of breath secondary to large left pleural effusion status post left thoracostomy catheter: 2 L removed upon admission. Chest tube in place. X-ray shows improvement. Await recommendations from pulmonology. Chronic systolic CHF with prior EF of 25%: Overall stable. Patient on room air. Continue carvedilol 3.125 mg 1 pill twice daily and Xarelto 20 mg daily. Patient also takes Lasix 40 mg 1 pill twice daily. Hold if blood pressure systolic less than 110. Atrial fibrillation on chronic anticoagulation therapy: Continue with Xarelto 20 mg daily. Continue with his carvedilol as stated above. Hypertension: Continue carvedilol Rheumatoid arthritis: Patient takes Humira at home. Provide tramadol for pain. Pulmonary fibrosis: Overall stable Code Status: Full Code DVT prophylaxis: Xarelto Advanced Care Planning-30 minutes: Home at discharge Time Spent Managing Pts Care (In Minutes): 55
--- NOTE | 2021-02-17 07:06 | RAD REPORT ---
EXAM DESCRIPTION: RAD - Chest Single View - 02/17/2021 6:29 am CLINICAL HISTORY: FOLLOW UP PLEURAL EFFUSION COMPARISON: Chest Single View dated 02/16/2021; Chest Single View dated 02/15/2021; Chest Pa And Lat (2 Views) dated 02/15/2021; Chest Single View dated 01/04/2021; Thorax Wo Con dated 02/15/2021 FINDINGS: Lines: Left-sided chest tube in place the lung bases Lungs: Chronic lung changes in the right lung. Increasing opacification of the aerated left upper lob e. Much of the left lung remains atelectatic Pleural: Left pleural effusion remains moderate, marginally smaller Cardiac: Obscured Bones: No acute fractures. Other: IMPRESSION: Left pleural effusion is slightly decreased. Increased opacification of the aerated left upper lobe could reflect re-expansion edema. Background of chronic lung changes.
[2021-02-17] MEDS: FUROSEMIDE 40 MG TABLET PO SCH ×2 (08:45→17:34)
[2021-02-17] MEDS: AMIODARONE HCL 200 MG TAB PO SCH ×2 (08:45→20:45)
[2021-02-17] MEDS: VIT C PO SCH ×2 (08:45→20:44)
[2021-02-17] MEDS: VIT E PO SCH ×2 (08:45→20:44)
[2021-02-17] MEDS: ZINC PO SCH ×2 (08:45→20:44)
[2021-02-17] MEDS: COPPER PO SCH ×2 (08:45→20:44)
[2021-02-17] MEDS: [UNRECOGNIZED DRUG - OTHER] PO SCH ×2 (08:45→20:44)
[2021-02-17] MEDS: VIT A PO SCH ×2 (08:45→20:44)
--- NOTE | 2021-02-17 10:18 | RAD REPORT ---
EXAM DESCRIPTION: CT - Thorax Wo Con - 02/17/2021 9:33 am CLINICAL HISTORY: Opacification of the left hemithorax chest tube COMPARISON: <Comparisons> FINDINGS: Chest Wall: No suspicious thyroid nodules or pathologic lymphadenopathy. Lungs: Background of chronic interstitial lung disease. There is some atelectasis as a result of the effusions. Pleura: Small moderate volume of left pleural fluid with rind around the left lung. Left-sided chest tube in place at the left lung base. Gas within the effusion is present. Small hydropneumothorax. Sma ll right pleural effusion. Mediastinum/mesha: No pathologic lymphadenopathy. Pulmonary arteries/Aorta: Limited evaluation without contrast. No aortic aneurysm. Heart: [id number] loculated pericardial effusion with pericardial thickening. Cardiomegaly. Mu lti-vessel coronary artery disease. Upper abdomen: No acute abnormality. Bones: Left-sided rib fractures are unchanged. All CT scans are performed using dose optimization technique as appropriate and may include automated exposure control or mA/KV adjustment according to patient size. IMPRESSION: The left pleural effusion compared with the prior CT is markedly improved. A rind of ple ural fluid remains around the left lung as well as small hydropneumothorax likely as result of comple xity of the left pleural effusion. Underlying atelectasis as well as background of chronic interstiti al lung disease is noted. Moderate to large complex, loculated pericardial effusion which is unchanged in retrospect. Consider correlation with echocardiography to exclude a tamponade like physiology.
--- NOTE | 2021-02-17 10:51 | P.CNS ---
Date of Consult: 02/17/21 Reason for Consult: Pleural effusion Primary Care Provider: Dr. Self; Pulmonary-Dr. Brewster; Cardiology-Dr. Escobedo Chief Complaint: Left-sided pleural effusion patient has a chest tube History of Present Illness: Patient is 71 years of age admitted with fall left rib fractures and associated pleural effusion he did have a chest tube placed currently he complains of some chest discomfort on inspiration has been very little output from his chest tube chest CT shows possible loculation on the left side Allergies Iodinated Contrast Media [Iodinated Contrast Media - IV Dye] Allergy (Verified 01/12/21 16:05) swelling , whelts aspirin [From Percodan] Adverse Reaction (Verified 01/12/21 16:05) hallucinations oxycodone [From Percodan] Adverse Reaction (Verified 01/12/21 16:05) hallucinations Home Medications: Vit A/Vit C/Vit E/Zinc/Copper [Icaps Areds Formula Dr Tablet] 1 each PO BID 04/18/16 Rivaroxaban [Xarelto] 20 mg PO DAILY AT SUPPER 30 Days #30 tablet 01/04/21 Amiodarone HCl [Cordarone*] 1 tab PO BID 02/15/21 Carvedilol [Coreg] 2 tab PO BID 02/15/21 Famotidine [Pepcid] 20 mg PO DAILY 02/15/21 Furosemide [Lasix*] 40 mg PO BID 02/15/21 - Past Medical/Surgical History Diabetic: No -: Rheumatoid arthritis -: Pulmonary fibrosis -: Atrial fibrillation on chronic anticoagulation therapy -: Chronic systolic CHF with EF of 25% -: Hypertension -: Colon cancer resection -: Knee surgery -: Shoulder surgery -: Tonsillectomy -: Cardioversion December 2020 Psychosocial/ Personal History: Patient lives at home. - Family History Mother Medical History: Heart disease Brother Medical History: Heart disease - Social History Alcohol use: No CD- Drugs: No Caffeine use: Yes Place of Residence: Home Review of Systems Respiratory: Shortness of Breath Cardiovascular: Palpitations Physical Examination Temp Pulse Resp BP Pulse Ox 97.8 F 76 17 111/55 L 97 02/17/21 08:37 02/17/21 08:45 02/17/21 08:37 02/17/21 08:45 02/17/21 08:37 General: Alert, In no apparent distress, Oriented x3 Respiratory: Diminished (Diminished on the left side) Cardiovascular: No edema, Regular rate/rhythm Gastrointestinal: Normal bowel sounds, Soft and benign - Problems (1) Pleural effusion Current Visit: Yes Status: Acute Plan: Patient is 71 years of age admitted with left-sided pleural effusion which has improved only from the rib fractures he is doing much better minimal drainage no air leak chest CT scan shows some atelectasis possible some loculation however he is currently doing very well vital signs oxygenation all stable no evidence of pleural fluid sepsis at this moment plan to remove the chest tube discharged home follow-up with me in 2 weeks pleural fluid data still pending chest on the fluid negative dominantly lymphocytic predominant effusion
[2021-02-17] MEDS: TRAMADOL HCL 50 MG TAB PO PRN (13:37)
[2021-02-17] MEDS: RIVAROXABAN 20 MG TABLET PO SCH (17:34)
[2021-02-17] MEDS: HYDROCODONE/APAP 5/325 MG TAB PO PRN (17:34)
--- NOTE | 2021-02-17 18:16 | CON ---
Date of Consultation: 02/17/2021 Reason For Consultation: Pericardial effusion on CT scan. History Of Present Illness: This is a 71-year-old male who was admitted on the after a fall, fo und to have large pleural effusion, status post chest tube placement. The patient is noted to have s ystolic congestive heart failure with low ejection fraction. Has atrial fibrillation. CT scan of th e chest suggested a large pericardial effusion. The patient does not have any chest pain or shortnes s of breath at present time. Past Medical History: Congestive heart failure, pulmonary fibrosis, rheumatoid arthritis, chronic at rial fibrillation, hypertension, colon cancer. Medications: Refer reconciliation sheet for detailed list. Allergies: CONTRAST, ASPIRIN, OXYCODONE. Family History: No premature coronary artery disease or cancer. Social History: Does not smoke or drink. Does not use any drugs. Review of Systems: All systems reviewed and they were negative except as mentioned in HPI. Physical Examination: Vital Signs: Temperature is 97.8, pulse 76, breathing at 17, blood pressure 111/55, saturating 97%. General: A pleasant elderly male, in no distress. Head and Neck: Pupils are equal, reactive to light. Intact eye movements. Neck: No JVD. No cervical lymphadenopathy. Neck supple. Thyroid is not enlarged. Lungs: Decreased breathing sounds bilaterally. No accessory muscle use or muscle retraction. Heart: Regular rate and rhythm. No extra sounds. Abdomen: Soft, nontender. Bowel sounds positive. No organomegaly. No masses or hernia. No rigidi ty or rebound. Extremities: No clubbing, cyanosis. Intact pulses. Skin: No rash. No nodules. Neurologic: Alert, awake, oriented x3. No focal deficits appreciated. Investigations: Creatinine was 1.1. Hemoglobin 9.5, white blood cell count 12.2. Assessment And Recommendation: Pericardial effusion noted on CT scan of the chest. Please obtain ec hocardiogram to quantify the effusion and evaluate for any hemodynamic abnormalities on echo. The pa tient hemodynamically stable with good blood pressure and no tachycardia. Monitor closely and obtain echocardiogram when it is feasible. Further plan and recommendation will follow based on the echo. If the patient has significant large perfusion, then we will plan for pericardiocentesis and drainin g fluids. Of note the patient has history of rheumatoid arthritis as per chart and also history of elio ancer which raises concern of possible cancer-related effusion. Thank you for the consult. /JOEL Voice ID: [id number] Report ID: [id number]
[2021-02-18] MEDS: HYDROCODONE/APAP 5/325 MG TAB PO PRN ×2 (00:44→10:25)
[2021-02-18 05:44] LABS: Hematocrit 29.4 % (39.6-49.0); Lymphocytes % 11.3 % (15.3-44.8); MPV 7.4 fL (7.6-11.3); RBC Red Blood Cell Count 3.36 M/uL (4.33-5.43)
--- NOTE | 2021-02-18 05:55 | P.PN ---
Subjective Date of Service: 02/18/21 Primary Care Provider: Dr. Self; Pulmonary-Dr. Brewster; Cardiology-Dr. Escobedo Chief Complaint: Left-sided pleural effusion patient has a chest tube Subjective: Other (Overall stable. Currently on 2 L per nasal cannula.) Physical Examination - Vital Signs Temperature: 98 F Blood Pressure: 133/59 Pulse: 96 Respirations: 18 Pulse Ox (%): 93 Assessment & Plan Discharge Plan: Home Plan to discharge in: 48 Hours Physician Review Additional Text: COVID: Pending Chest x-ray: COMPARISON: December 2020 FINDINGS: Fractures involving left fourth, fifth and 6 ribs better seen on the CT chest same date. Large left pleural effusion. Moderate pulmonary fibrosis. Mild right upper lobe acute opacities CT head: COMPARISON: None TECHNIQUE: Computed axial tomography of the head was obtained. IV contrast was not requested. All CT scans are performed using dose optimization technique as appropriate and may include automated exposure control or mA/KV adjustment according to patient size. FINDINGS: An intracranial bleed is not seen . The ventricles are normal in caliber. No extra-axial fluid collection is noted. Fluid within the sinuses/ mastoids is not seen. IMPRESSION: No acute intracranial abnormality is seen. If patient's symptoms persist MRI of the brain would be recommended. CT scan: COMPARISON: April 2020 TECHNIQUE: Computed axial tomography of the chest was obtained. Contrast was not requested. All CT scans are performed using dose optimization technique as appropriate and may include automated exposure control or mA/KV adjustment according to patient size. FINDINGS: The evaluation of mediastinum, mesha and vessels is limited secondary to lack of IV contrast administration. Minimally displaced fracture of the lateral left fourth rib. Mildly displaced fracture mid lateral fifth rib. Moderately displaced fracture posterior left six rib. Left basilar atelectasis. No pneumothorax No mediastinal hematoma seen. Moderate pulmonary fibrosis. Right upper lobe. Small right pleural effusion IMPRESSION: Left rib fractures with large left pleural effusion Surgery: Date of procedure: 02/15/2021 Surgeon: Pino Roberts MD Preoperative diagnosis: Left pleural effusion Postoperative diagnosis: Same Primary procedure: Insertion of left thoracostomy catheter Estimated blood loss: Less than 10 cc Follow up CXR 02/18/2021: COMPARISON: Chest Single View dated 02/16/2021; Chest Single View dated 02/15/2021; Chest Pa And Lat (2 Views) dated 02/15/2021; Chest Single View dated 01/04/2021; Thorax Wo Con dated 02/15/2021 FINDINGS: Lines: Left-sided chest tube in place the lung bases Lungs: Chronic lung changes in the right lung. Increasing opacification of the aerated left upper lobe. Much of the left lung remains atelectatic Pleural: Left pleural effusion remains moderate, marginally smaller Cardiac: Obscured Bones: No acute fractures. IMPRESSION: Left pleural effusion is slightly decreased. Increased opacification of the aerated left upper lobe could reflect re-expansion edema. Background of chronic lung changes. CT scan: COMPARISON: <Comparisons> FINDINGS: Chest Wall: No suspicious thyroid nodules or pathologic lympha denopathy. Lungs: Background of chronic interstitial lung disease. There is some atelectasis as a result of the effusions. Pleura: Small moderate volume of left pleural fluid with rind around the left lung. Left-sided chest tube in place at the left lung base. Gas within the effusion is present. Small hydropneumothorax. Small right pleural effusion. Mediastinum/mesha: No pathologic lymphadenopathy. Pulmonary arteries/Aorta: Limited evaluation without contrast. No aortic aneurysm. Heart: [id number] loculated pericardial effusion with pericardial thickening. Cardiomegaly. Multi-vessel coronary artery disease. Upper abdomen: No acute abnormality. Bones: Left-sided rib fractures are unchanged. All CT scans are performed using dose optimization technique as appropriate and may include automated exposure control or mA/KV adjustment according to patient size. IMPRESSION: The left pleural effusion compared with the prior CT is markedly improved. A rind of pleural fluid remains around the left lung as well as small hydropneumothorax likely as result of complexity of the left pleural effusion. Underlying atelectasis as well as background of chronic interstitial lung disease is noted. Moderate to large complex, loculated pericardial effusion which is unchanged in retrospect. Consider correlation with echocardiography to exclude a tamponade like physiology. Physical Exam: GENERAL: The patient is a well-developed, well-nourished, in no apparent distress. Alert and oriented x3. VITAL SIGNS: Reviewed HEENT: Head is normocephalic and atraumatic. Extraocular muscles are intact. Pupils are equal, round, and reactive to light and accommodation. Nares appeared normal. Patient bit his lip during his fall.. NECK: Supple. No carotid bruits. No lymphadenopathy or thyromegaly. LUNGS: Better air movement to the left side. HEART: Regular rate and rhythm, no appreciable gallops, rubs, murmurs or extra heart sounds ABDOMEN: Soft, nontender, and nondistended. Positive bowel sounds. No hepatosplenomegaly was noted. EXTREMITIES: Without any cyanosis, clubbing, rash, lesions or peripheral edema. NEUROLOGIC: The patient is oriented to person, place and time. Strength and sensation are grossly intact. Face is symmetric. SKIN: Normal color, turgor and temperature. Minimal pitting edema to the lower extremities. Impression: Dyspnea secondary to large left pleural effusion status post left thoracostomy catheter with CT showing small hydropneumothorax complicated with moderate to large complex loculated pericardial effusion Fall leading to fractures to the left fourth, fifth and sixth rib Chronic systolic CHF with prior EF of 25% Atrial fibrillation on chronic anticoagulation therapy Hypertension Rheumatoid arthritis Pulmonary fibrosis Plan: Dyspnea secondary to large left pleural effusion status post left thoracostomy catheter with CT showing small hydropneumothorax complicated with moderate to large complex loculated pericardial effusion: Chest tube remains in place. Patient currently on 2 L per nasal cannula. Case discussed with pulmonology yesterday. Cardiology consulted to evaluate pericardial effusion. Cardiology awaits echocardiogram to be done tomorrow. Await findings. Patient may require pericardiocentesis to further evaluate. Await recommendations by cardiology. Continue with chest tube. Fluid results negative for infectious process. Will check to see and verify if fluid was sent out for cytology. Etiology unknown. Consider cardiac related versus possible underlying cancer. Continue to discuss with pulmonology and cardiology. I will turn to service over to the hospitalist team tomorrow. I will plan to care with him. Fall leading to fractures to the left fourth, fifth and sixth rib: Continue with medication for pain. Chronic systolic CHF with prior EF of 25%: Overall stable. Currently on 2 L per nasal cannula. Continue carvedilol 3.125 mg 1 pill twice daily and Xarelto 20 mg daily. Patient also takes Lasix 40 mg 1 pill twice daily. Hold if blood pressure systolic less than 110. Continue with above plan of care. Atrial fibrillation on chronic anticoagulation therapy: Continue with Xarelto 20 mg daily. Continue with his carvedilol as stated above. Hypertension: Continue carvedilol Rheumatoid arthritis: Patient takes Humira at home. Provide tramadol for pain. Pulmonary fibrosis: Overall stable Code Status: Full Code DVT prophylaxis: Xarelto Advanced Care Planning-30 minutes: Home at discharge likely in the next 24 to 48 hours. Time Spent Managing Pts Care (In Minutes): 55
[2021-02-18 06:07] LABS: Magnesium 2.4 mg/dL (1.8-2.4)
[2021-02-18] MEDS: carvediloL 3.125 MG TAB PO SCH ×2 (06:51→18:00)
[2021-02-18] MEDS: VIT C PO SCH ×2 (09:00→20:51)
[2021-02-18] MEDS: [UNRECOGNIZED DRUG - OTHER] PO SCH ×2 (09:00→20:51)
[2021-02-18] MEDS: VIT E PO SCH ×2 (09:00→20:51)
[2021-02-18] MEDS: COPPER PO SCH ×2 (09:00→20:51)
[2021-02-18] MEDS: VIT A PO SCH ×2 (09:00→20:51)
[2021-02-18] MEDS: ZINC PO SCH ×2 (09:00→20:51)
--- NOTE | 2021-02-18 10:06 | P.PN ---
Subjective Date of Service: 02/18/21 Primary Care Provider: Dr. Self; Pulmonary-Dr. Brewster; Cardiology-Dr. Escobedo Chief Complaint: Left-sided pleural effusion patient has a chest tube Subjective: Improving (Patient is doing better no new complaints still has some chest pain from the chest tube) Review of Systems General: Weakness Respiratory: Shortness of Breath Cardiovascular: Chest Pain Physical Examination - Vital Signs Temperature: 98 F Blood Pressure: 133/59 Pulse: 96 Respirations: 18 Pulse Ox (%): 93 - Physical Exam General: Alert, Oriented x3 Respiratory: Diminished (Diminished on the left side) Cardiovascular: No edema Assessment & Plan - Problems (Diagnosis) (1) Pleural effusion Current Visit: Yes Status: Acute Plan: No significant change in his chest x-ray may have a component of atelectasis and loculated effusion in addition he also has a pericardial effusion echogram is pending normal drainage today at 70cc chest tube suction was DC'd yesterday he has no visible air leak remove the chest tube today plan to ambulate patient also do some incentive spirometry may need to be seen by a thoracic surgeon white count is mildly elevated will check with the lab if there is any pleural fluid for cytology is got predominantly lymphocytic predominant effusion no evidence of an infection
[2021-02-18] MEDS: FUROSEMIDE 40 MG TABLET PO SCH ×2 (10:25→17:00)
[2021-02-18] MEDS: AMIODARONE HCL 200 MG TAB PO SCH ×2 (10:26→20:51)
--- NOTE | 2021-02-18 11:55 | RAD REPORT ---
EXAM DESCRIPTION: RAD - Chest Single View - 02/18/2021 6:44 am CLINICAL HISTORY: follow up pleural effusion Chest pain. COMPARISON: Chest Single View dated 02/17/2021; Chest Single View dated 02/16/2021; Chest Single Vie w dated 02/15/2021; Chest Pa And Lat (2 Views) dated 02/15/2021; Thorax Wo Con dated 02/17/2021 FINDINGS: Portable technique limits examination quality. Moderate bilateral pulmonary opacities are again seen, with moderate worsening right lung aeration si nce yesterday's study. The heart is mildly enlarged in size. Small pleural effusions bilaterally.
--- NOTE | 2021-02-18 14:42 | RAD REPORT ---
EXAM DESCRIPTION: RAD - Chest Single View - 02/18/2021 2:36 pm CLINICAL HISTORY: follow up chest tube removal Chest pain. COMPARISON: Chest Single View dated 02/18/2021; Chest Single View dated 02/17/2021; Chest Single Vie w dated 02/16/2021; Chest Single View dated 02/15/2021 FINDINGS: Portable technique limits examination quality. The left-sided chest tube has been removed. There is no measurable pneumothorax seen. Bilateral pulmo nary opacities remain relatively unchanged, more severe on the left. Heart size mildly enlarged.Sever al left-sided rib fractures again noted.
[2021-02-18] MEDS: RIVAROXABAN 20 MG TABLET PO SCH (17:45)
[2021-02-19 05:35] LABS: Absolute Lymphocytes (CBC) 1.9 K/uL (0.7-4.9); Hematocrit 28.7 % (39.6-49.0); Lymphocytes % 10.6 % (15.3-44.8); MPV 7.9 fL (7.6-11.3); RBC Red Blood Cell Count 3.25 M/uL (4.33-5.43)
[2021-02-19 05:44] LABS: Magnesium 2.5 mg/dL (1.8-2.4); Potassium 3.8 mmol/L (3.5-5.1)
[2021-02-19] MEDS: carvediloL 3.125 MG TAB PO SCH (06:01)
[2021-02-19] MEDS: HYDROCODONE/APAP 5/325 MG TAB PO PRN (06:01)
--- NOTE | 2021-02-19 07:55 | RAD REPORT ---
EXAM DESCRIPTION: RAD - Chest Single View - 02/19/2021 5:27 am CLINICAL HISTORY: Follow-up pleural effusion COMPARISON: February 18 TECHNIQUE: AP portable chest image was obtained 02/19/2021 5:27 am . FINDINGS: Lung volumes remain low. No new tube or line placement. The mid and lower left lung field pleural and parenchymal opacification are still present. Patchy right base atelectasis or infiltrate also noted. Heart size and vasculature are stable. No new or enlarging pleural effusion. No new or en larging pneumothorax. There may be a small remnant pneumothorax in the lateral base. This is very min imal and is not a progressive finding. IMPRESSION: Low lung volume study showing stable left side pleural and parenchymal opacification. No new or enlarging left-sided pneumothorax. Right base atelectasis and probable minimal pleural effusion are stable.
[2021-02-19] MEDS: VIT C PO SCH (09:00)
[2021-02-19] MEDS: VIT E PO SCH (09:00)
[2021-02-19] MEDS: VIT A PO SCH (09:00)
[2021-02-19] MEDS: COPPER PO SCH (09:00)
[2021-02-19] MEDS: ZINC PO SCH (09:00)
[2021-02-19] MEDS: AMIODARONE HCL 200 MG TAB PO SCH (09:00)
[2021-02-19] MEDS: [UNRECOGNIZED DRUG - OTHER] PO SCH (09:00)
[2021-02-19] MEDS: FUROSEMIDE 40 MG TABLET PO SCH (09:38)
[2021-02-19 14:33] VITALS: O2SAT 96
--- NOTE | 2021-02-19 14:39 | ECHO ---
HEIGHT: 5 ft 10 in WEIGHT: 178 lb 0 oz DATE OF STUDY: 02/19/[address]: Daryn Ray DO 2-DIMENSIONAL: YES M.MODE: YES DOPPLER: YES COLOR FLOW: YES TDS: PORTABLE: DEFINITY: BUBBLE STUDY: DIAGNOSIS: MOD LOCULATED PERICARDIAL EFFUSION CARDIAC HISTORY: CATHERIZATION: NO SURGERY: NO PROSTHETIC VALVE: NO PACEMAKER: NO MEASUREMENTS (cm) DIASTOLIC (NORMALS) SYSTOLIC (NORMALS) IVSd 0.8 (0.6-1.2) LA Diam 3.8 (1.9-4.0) LVEF 60% LVIDd 2.8 (3.5-5.7) LVIDs 2.0 (2.0-3.5) %FS 30% LVPWd 0.9 (0.6-1.2) Ao Diam (2.0-3.7) 2 DIMENSIONAL ASSESSMENT: RIGHT ATRIUM: QUESTIONABLE MASS IN THE RIGHT ATRIUM LEFT ATRIUM: NORAML RIGHT VENTRICLE: NORMAL LEFT VENTRICLE: NORMAL TRICUSPID VALVE: MILD TRICUSPID REGURGTITATION MITRAL VALVE: MILD MITRAL REGURGITATION PULMONIC VALVE: MILD PULMONIC INSUFFIENCY AORTIC VALVE: MILD AORTIC INSUFFIENCY PERICARDIAL EFFUSION: LOCALISED POSTERIOR EFFUSION AORTIC ROOT: NORMAL LEFT VENTRICULAR WALL MOTION: NORMAL DOPPLER/COLOR FLOW: SEE BELOW COMMENTS: NORMAL LEFT VENTRICULAR EJECTION FRACTION 55-60%. MILD MITRAL, MILD TRICUSPID REGURGITATION, MILD PULMONIC INSUFFIENCY, MILD AORTIC INSUFFIENCY. QUESTIONABLE RIGHT ATRIAL MASS. LOCALIZED POSTERIOR EFFUSION. TECHNOLOGIST: BRENDEN SIN
--- NOTE | 2021-02-19 15:13 | P.DS ---
Discharge Date: 02/19/21 Primary Care Provider: Dr. Self; Pulmonary-Dr. Brewster; Cardiology-Dr. Escobedo Disposition: ROUTINE DISCHARGE Discharge Condition: GOOD Reason for Admission: Left-sided pleural effusion patient has a chest tube Consultations: Pulmonary Cardiology Brief History of Present Illness: Patient is a 71-year-old gentleman who came into the hospital with a a large left-sided pleural effusion. The pleural fluid was bloody. This was most likely related to up his fall as he suffered rib fractures as well. Patient had a chest tube placed. Patient was admitted for further evaluation. Hospital Course: Patient had chest tube removed and fluid was sent off for cytology. Patient also had an echocardiogram with a loculated pericardial effusion and a quest ionable mass in the right atrium. Patient will follow up as an outpatient with transesophageal echocardiogram in 1-2 weeks. Resume cardiac medications per Cardiology. Vital Signs/Physical Exam: Temp Pulse Resp BP Pulse Ox 98.0 F 82 16 90/59 L 92 02/19/21 12:00 02/19/21 12:00 02/19/21 12:00 02/19/21 12:00 02/19/21 12:00 General: Alert, In no apparent distress, Oriented x3 Laboratory Data at Discharge: WBC 17.70 K/uL (4.3-10.9) H 02/19/21 04:29 Hgb 9.2 g/dL (13.6-17.9) L 02/19/21 04:29 Hct 28.7 % (39.6-49.0) L 02/19/21 04:29 Plt Count 344 K/uL (152-406) 02/19/21 04:29 PT 18.5 SECONDS (9.5-12.5) H 02/15/21 17:20 INR 1.60 02/15/21 17:20 APTT 45.4 SECONDS (24.3-36.9) H 02/15/21 17:20 Sodium 133 mmol/L (136-145) L 02/19/21 04:29 Potassium 3.8 mmol/L (3.5-5.1) 02/19/21 04:29 BUN 18 mg/dL (7-18) 02/19/21 04:29 Creatinine 0.95 mg/dL (0.55-1.3) 02/19/21 04:29 Glucose 120 mg/dL (74-106) H 02/19/21 04:29 Magnesium 2.5 mg/dL (1.8-2.4) H 02/19/21 04:29 Home Medications: Vit A/Vit C/Vit E/Zinc/Copper [Icaps Areds Formula Dr Tablet] 1 each PO BID 04/18/16 Rivaroxaban [Xarelto] 20 mg PO DAILY AT SUPPER 30 Days #30 tablet 01/04/21 Amiodarone HCl [Cordarone*] 1 tab PO BID 02/15/21 Carvedilol [Coreg] 2 tab PO BID 02/15/21 Famotidine [Pepcid] 20 mg PO DAILY 02/15/21 Furosemide [Lasix*] 40 mg PO BID 02/15/21 Hydrocodone 5/APAP 325 [[place] 5/325*] 1 tab PO Q6HP PRN #30 tab 02/19/21 New Medications: Hydrocodone 5/APAP 325 [[place] 5/325*] 1 tab PO Q6HP PRN #30 tab PRN Reason: Pain Scale 8-10 (Severe) Physician Discharge Instructions: OK TO DC IV AND DC HOME FOLLOW-UP WITH PRIMARY CARE PROVIDER IN 1-2 WEEKS FOLLOW-UP WITH CARDIOLOGY and pulmonary IN 1-2 WEEKS RETURN TO THE ER IF symptoms worsen CALL or TEXT DR. BERG AT [phone] IF ANY QUESTIONS REGARDING HOSPITAL STAY. PLEASE CALL THE FLOOR AT [phone] IF ANY MEDICATION OR NURSING QUESTIONS. Diet: AHA Activity: Fall precautions Followup: Pino Coffman MD [Primary Care Provider] -
[2021-02-19 16:32] VITALS: BP 97/59; TEMP 98.8
--- NOTE | 2021-02-19 19:05 | PN ---
Date of Progress Note: 02/19/2021 Subjective: Seen by bedside. He is doing well. Does not have any chest pain, shortness of breath. No nausea, vomiting, diarrhea. All other systems reviewed are negative. Physical Examination: Vital Signs: Temperature is 98.0, pulse 82, breathing at 16, blood pressure 104/61, saturating 96% o n room air. General: Pleasant, elderly male, in no distress. Head And Neck: Pupils are equal, reactive to light. Intact eye movements. No JVD. No cervical lym phadenopathy. Neck: Supple. Thyroid is not enlarged. Heart: Regular rate and rhythm. No extra sounds. Lungs: Clear to auscultation bilaterally. No rhonchi, rales, or crackles. Abdomen: Soft, nontender. Bowel sounds positive. No organomegaly. No masses or hernia. No rigidi ty or rebound. Extremities: No clubbing, cyanosis. Intact pulses. Skin: No rash was noted. Neuro: Alert, awake, oriented x3. No acute focal associated fasciculations. Investigations: On echo, the patient has a mass in his right atrium of unknown etiology and localize d posterior pericardial effusion. 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 Apparently has it for some time now and was told in the past it is a clot and he was on Xarelto for that reason. We will set the patient up for outpatient transesophageal echo to further delineate the etiology and if this did not give an answer , then we will plan for cardiac MRI. 2.Localized pericardial effusion, again etiology is not clear. Plan for transesophageal echocardiog caro to be done as an outpatient and might need to do a cardiac MRI. Based on we find from Cardiology standpoint, the patient can be released and I will arrange for the [facility] as an outpatient. SR/MODL Voice ID: [id number] Report ID: [id number]
[2021-02-20 19:47] LABS: LD, PLEURAL FLUID 501 U/L; TOTAL PROTEIN, PLEURAL FLUID 3.7 g/dL; TRIGLYCERIDE, PLEURAL FLUID 15 mg/dL
== END 2021-02-19 16:29 | disposition home or self-care (01) | DRG 183 ==
LOC: ER 12:58 → ERHOLD 17:39 → 2ND 19:26
PROVIDERS: ADMIT Family Medicine; ATTEND Hospitalist
PROC: 0W9B30Z Drainage of Left Pleural Cavity with Drainage Device, Percutaneous Approach (ICD-10-PCS; principal; 2021-02-15)
DX: S22.42XA Multiple fractures of ribs, left side, initial encounter for closed fracture (principal); I50.21 Acute systolic (congestive) heart failure; J90 Pleural effusion, not elsewhere classified; I31.3 Pericardial effusion (noninflammatory); S27.309A Unspecified injury of lung, unspecified, initial encounter; I11.0 Hypertensive heart disease with heart failure; J84.10 Pulmonary fibrosis, unspecified; I48.91 Unspecified atrial fibrillation; S01.511A Laceration without foreign body of lip, initial encounter; M06.9 Rheumatoid arthritis, unspecified; W01.0XXA Fall on same level from slipping, tripping and stumbling without subsequent striking against object, initial encounter; Y92.094 Garage of other non-institutional residence as the place of occurrence of the external cause; Z88.8 Allergy status to other drugs, medicaments and biological substances; Z88.5 Allergy status to narcotic agent; Z91.048 Other nonmedicinal substance allergy status; Z79.01 Long term (current) use of anticoagulants; Z79.899 Other long term (current) drug therapy; Z85.038 Personal history of other malignant neoplasm of large intestine; Z90.49 Acquired absence of other specified parts of digestive tract; Z20.822 Contact with and (suspected) exposure to COVID-19
CPT/HCPCS: 36415; 70450; 71045; 71046; 71250; 80048; 81003; 82945; 82947; 83615; 83735; 84157; 84478; 85025; 85610; 85730; 87070; 88108; 88305; 89050; 93306; 96374; 97116; 97161; 99285; J2270; U0003

== ENCOUNTER 2021-03-02 09:17 | Inpatient (IN) | payer OTHER, BC ==
--- OUTSIDE RECORDS SUMMARY | 2021-03-02 09:19 | XMS REPORT | Continuity of Care Document ---
:1950 Author Organization [facility] t Address [address] [place] [address] Care Team Providers Name Role Phone MIRIAN CHARLES Primary Care Physician Unavailable Lisa Attending Clinician Unavailable ANSHUL COFFMAN Attending Clinician Unavailable Cecelia COLON Attending Clinician Unavailable Lab, - Db Attending Clinician Unavailable Anshul Coffman MD Attending Clinician MORENA Attending Clinician Unavailable Cecelia Colon MD Attending Clinician Physician, Primary or Family Admitting Clinician Unavailabl e Payers Payer Name Policy Type Policy Number Effective Date Expiration Date S ource MEDICARE PART A \T\ [id number] 2013 B 00:00:00 [employer] TRADITIONAL [id number] 2013 00:00:00 Problems Condition Condition Condition Status Onset Resolution Last Treating Co mments Source Name Details Category Date Date Treatment Clinician Date Bilateral Bilateral Disease Active 2015-02 Uni vers knee pain knee pain 03-04 ity of 00:00: [place] 00 Medical Branch Allergies, Adverse Reactions, Alerts Allergy Allergy Status Severity Reaction(s) Onset Inactive Treating Comm ents Source Name Type Date Date Clinician Oxycodon Propensi Active Hallucinatio 2015-02 Univers e ty to ns 03-04 ity of Hcl-Oxyc adverse 00:00: [place] odone-As reaction 00 Medica l a s Branch IODINE Drug Active Swelling 2015-02 Univers AND Class 1-09 ity of IODIDE 00:00: [place] CONTAINI 00 Medical Branch PRODUCTS OXYCODON DRUG Active Hallucinates 2015-02 Un aileen E 03-04 ity of HCL-OXYC 00:00: [place] ODONE- 00 [facility] Iodine Propensi Active Swelling 2015-02 Univer s And ty to 03-04 ity of Iodide adverse 00:00: [place] Containi reaction 00 Medica l s Branch Products oxycodon DA Active U [facility] HCl 08-26 Clear 00:00: [place] 00 [facility] Oxycodon DA Active U [facility] 7 Clear Terephth 00:00: [place] alate 00 [facility] aspirin DA Active U [facility] 08-26 Clear 00:00: [place] 00 [facility] Social History Social Habit Start Date Stop Date Quantity Comments Source Exposure to Not sure [facility] SARS-CoV-2 [facility] [place] (event) [place] Alcohol intake 2021-01-31 2021-01-31 0 /d University of 00:00:00 00:00:00 [facility] Tobacco use and 2021-01-01 2021-01-01 Never used Universit y of exposure 00:00:00 00:00:00 [facility] History of 1991-01-01 Cigarette Smoker Universi ty of tobacco use 00:00:00 [facility] Sex Ass[birth year] At [birth year] Universit y of 00:00:00 00:00:00 [facility] Smoking Status Start Date Stop Date Source Former smoker 2021-01-01 00:00:00 2021-01-01 00:00:00 Universi ty of [facility] Medications Ordered Filled Start Stop Current Ordering Indication Dosage Frequency Signature Comments Components Source Medication Medication Date Date Medication? Clinician (SIG) Name Name dexAMETHaso 2020-02 2mg Take 2 mg Univers ne 2 mg 04-03 by mouth 2 ity o f tablet 10:53: 00:00 (two) [place] 53 :00 times Medical daily with Branch meals. XARELTO 20 2020-02 Yes 20mg Take 20 mg U nivers mg tablet 2-05 by mouth ity of 00:00: daily. [place] 00 [facility] XARELTO 20 2020-02 Yes 20mg Take 20 mg U nivers mg tablet 2-05 by mouth ity of 00:00: daily. Medical Branch amiodarone 2020-02 Yes 200mg Take 200 Un aileen 200 mg 2-03 mg by ity of tablet 00:00: mouth daily. Medical Branch amiodarone 2020-02 Yes 200mg Take 200 Un aileen 200 mg 2-03 mg by ity of tablet 00:00: mouth daily. Medical Branch furosemide 2020-02 Yes 40mg Take 40 mg U nivers 40 mg 1-24 by mouth 2 ity of tablet 00:00: (two) 00 times Medical daily. Branch furosemide 2020-02 Yes 40mg Take 40 mg U nivers 40 mg 1-24 by mouth 2 ity of tablet 00:00: (two) times Medical daily. Branch carvediloL 2020-02 Yes 6.25mg Take 6.25 Univers 6.25 mg 1-11 mg by ity of tablet 00:00: mouth 2 (two) Medical times Branch daily. carvediloL 2020-02 Yes 6.25mg Take 6.25 Univers 6.25 mg 1-11 mg by ity of tablet 00:00: mouth 2 (two) Medical times Branch daily. adalimumab 2020-02 Yes 40mg inject 40 Un aileen (HUMIRA,CF, 1-08 mg under ity of PEN) 40 09:42: the skin [place] mg/0.4 mL 52 every 14 Medica l injection (fourteen) Bran ch days. adalimumab 2020-02 Yes 40mg inject 40 Un aileen (HUMIRA,CF, 1-08 mg under ity of PEN) 40 09:42: the skin [place] mg/0.4 mL 52 every 14 Medica l injection (fourteen) Bran ch days. spironolact 2020- No 1{tbl} Take 1 U nivers one-hydroch 9-29 12-08 tablet by it y of lorothiazid 00:00: 00:00 [place] 25-25 mg 00 :00 daily. Medical per tablet Branch Immunizations Ordered Filled Immunization Date Status Comments [facility] e Immunization Name Name Influenza High Dose 2021-01-04 Completed Unive rsity of 00:00:00 [facility] Influenza High Dose 2021-01-04 Completed Unive rsity of 00:00:00 [facility] Vital Signs Vital Name Observation Time Observation Value Comments Source Systolic blood 2021-01-31 16:40:00 113 mm[Hg] Univer sity of pressure [facility] Diastolic blood 2021-01-31 16:40:00 76 mm[Hg] Unive rsity of [facility] Heart rate 2021-01-31 16:40:00 72 /min [facility] Body temperature 2021-01-31 16:40:00 [facility].83 [facility] height 2021-01-31 16:40:00 177.8 cm [facility] Body weight 2021-01-31 16:40:00 78.472 kg [facility] BMI 2021-01-31 16:40:00 24.82 kg/m2 [facility] Procedures This patient has no known procedures. Encounters Start End Encounter Admission Attending Care Care Encounter Source Date/Time Date/Time Type Type Clinicians Facility Department ID 2021-02-27 Inpatient BASIM Frederick OUTD [id number] [facility] 10:30:00 Deuce [facility] 2021-05-01 2021-05-01 Outpatient Clint COFFMAN [facility] [id number] Univers 13:15:00 13:15:00 MAYRA [id number] [facility] 2021-03-06 2021-03-06 Outpatient Clint COFFMAN [facility] [id number] Univers 14:30:00 14:30:00 MAYRA [id number] [facility] 2021-02-28 2021-02-28 Outpatient SOLE IsaacBASIM gomez OUTD [id number] [facility] 05:24:00 05:24:00 Deuce [facility] 2021-02-14 2021-02-14 Outpatient Clint COLON [facility] [id number] Univers 13:45:00 13:45:00 IHSAN [id number] [facility] 2021-02-14 2021-02-14 Outpatient Clint COLON [facility] [id number] Univers 13:45:00 13:45:00 IHSAN [facility] 2021-01-312021-01-31 [facility]ial [employer] [facility] Lab, Ang - Db [facility] [id number] Univers 11:16:53 11:31:53 Visit Mayra Coffman [facility] [id number] ity odette [facility] [id number] Angel Luis as IMAN?BLEA [id number] [address] OFFICE [facility] 2021-01-31 2021-01-31 Outpatient R [facility] [id number] Univers 11:15:00 11:15:00 [id number] ity [facility] 2021-01-31 2021-01-[address] [facility] [id number] Univers 11:15:00 11:15:00 MAYRA [facility] 2021-01-31 2021-01-31 Office Da [facility] [id number] [facility] 10:31:40 11:01:40 Visit [facility] [id number] it y of Anshul BUSBY [id number] Angel Luis as IMAN?BLEA [id number] [address] OFFICE [facility] 2020-06-14 2020-06-14 Outpatient CONCEPCIÓN BERG [facility] [id number] [place] 00:00:00 00:00:[address] 2020-02-24 2020-02-24 [facility] [id number] 12:51:31 13:23:17 Visit [facility] [id number] Surgical [id number] Specialti [id number] [address] [place] Results Test Description Test Time Test Comments Results Result Comments Source COVID 19 Asymptomatic IH AG 2021-02-27 11:40:00 Test Item Value Reference Range Interpretation Comme nts COVID 19 POSITIVE Negative A A Asymptomatic IH AG negative result is presumptive and should be (test code = confirmedwith a n FDA authorized molecular COVNONPUIAG) assay, jackie hernandez forpatient management.A positive result does not rule out co-infections withother patho gens.This test detects both viable (live) a nd non-viable,SARS-CoV, and SARS-CoV-2. Chiquita t performance depends on theamount of vi alana (antigen) in the sample.This test has not be en FDA cleared or approved; the test hasbeen au thorized by FDA under an Emergency Use A uthorization(EUA) for use by laboratories ce rtified under the CLIA thatmeet the requirement s to perform moderate, high or waivedcomplexit y tests.
[2021-03-02 10:14] LABS: Arterial Blood Carboxyhemoglob 1.9 % (0-1.5); Blood Gas Oxyhemoglobin 32.1 % (94-97)
[2021-03-02 10:31] LABS: Absolute Lymphocytes (CBC) 1.4 K/uL (0.7-4.9); Hematocrit 26.7 % (39.6-49.0); Lymphocytes % 13.4 % (15.3-44.8); MPV 7.5 fL (7.6-11.3); RBC Red Blood Cell Count 3.11 M/uL (4.33-5.43)
[2021-03-02 10:34] LABS: Protime INR 2.97
[2021-03-02] MEDS ORDERED: ENOXAPARIN 80 MG/0.8 ML SQ ONE (10:38)
[2021-03-02] MEDS ORDERED: METHYLPREDNISOLONE 125 MG INJ ONE (10:38)
[2021-03-02] MEDS ORDERED: CEFEPIME 1 GM/VIAL ONE (10:38)
[2021-03-02] MEDS ORDERED: NA CHLORIDE 0.9% 100 ML ONE (10:39)
[2021-03-02 11:04] LABS: ALT/SGPT 23 U/L (12-78); AST/SGOT 33 U/L (15-37); Albumin 1.9 g/dL (3.4-5.0); Alkaline Phosphatase 139 U/L (45-117); BUN Blood Urea Nitrogen 29 mg/dL (7-18); Bicarbonate 28 mmol/L (21-32); Bilirubin Direct 0.3 mg/dL (0-0.2); Bilirubin Total 0.7 mg/dL (0.2-1.0); Glucose Level 148 mg/dL (74-106); NT PRO-BNP 3055 pg/mL (<125); Potassium 4.2 mmol/L (3.5-5.1); Protein, Total 7.3 g/dL (6.4-8.2); Sodium Level 136 mmol/L (136-145); Troponin (Emerg Dept Use Only) < 0.02 ng/mL (0.0-0.045)
--- NOTE | 2021-03-02 11:14 | RAD REPORT ---
EXAM DESCRIPTION: CT - Thorax Wo Con - 03/02/2021 10:32 am CLINICAL HISTORY: COVID positive, history of recent chest tube placement for left-sided pleural flui d. COMPARISON: Thorax Wo Con dated 02/17/2021; Thorax Wo Con dated 02/15/2021; Thorax Wo Con dated 2020 TECHNIQUE: Axial 5 mm thick images of the chest were obtained without IV contrast. All CT scans are performed using dose optimization technique as appropriate and may include automated exposure control or mA/KV adjustment according to patient size. FINDINGS: A small to moderate right-sided pleural effusion is present not substantially different fr om the February 17 examination. Patient does have ground-glass opacification throughout much of the r ight upper and right middle lobe with less prominent ground-glass opacities in the anterior portion a nd superior portion of the right lower lobe. Small amount of atelectasis is present posterior gutter on the right. The ground-glass opacities extend from hilum to the periphery of the right hemithorax. Air bronchograms are seen. No similar ground-glass opacification pattern seen on the left. The patien t does have remnant circumferential pleural fluid slightly less in volume than seen on the January 25 CT study. There is a trace remnant of pneumothorax at the left base. No pleural based mass. Several small mediastinal lymph nodes are present slightly larger than February 17. No gross aortic o r pulmonary artery finding suspected. Assessment is limited in the absence of IV contrast. No cardiac chamber enlargement seen. The 2 anterior and posterior loculated pericardial effusions are still present. Maximum thickness anteriorly is 4 cm with the posterior maximum thickness 2.9 cm. No change of significance in positioning of the left-sided rib fractures. No chest wall mass or abnormal axillary lymphadenopathy. IMPRESSION: Prominent ground-glass airspace opacities have developed throughout most of the right up per lobe and right middle lobe with less prominent ground-glass opacities in the right lower lobe. N o similar finding in the left hemithorax. The unilateral central to peripheral ground-glass opacification pattern is not classic for COVID-19 p neumonia though that would still be a consideration. Unilateral pattern is not classic presentation o f failure/volume overload. An infectious pneumonitis or alveolar edema from volume overload or failur e both possible. Large loculated pericardial effusions are not clearly different from February 17 imaging. Rind of remnant pleural effusion on the left is similar to the prior study. There is only minimal rem nant pneumothorax seen in the left base. Enlarged mediastinal lymph nodes compared February 17 probably reactive.
--- NOTE | 2021-03-02 11:21 | ER ---
Nurse's Notes [facility] Name: Houston Bell Age: 71 yrs Sex: Male : 1950 Arrival Date: 03/02/2021 Time: 09:17 Bed 7 Private MD: Pino Coffman Diagnosis: Pneumonia due to SARS-associated coronavirus Presentation: 03/02 09:28 Acuity: JESSICA 2 tw2 09:28 Chief complaint: Patient's son or daughter states: He is COVID + but i think its his tw2 fluids building up from his CHF. Coronavirus screen: Client presents with at least one sign or symptom that may indicate coronavirus-19. Standard/surgical mask placed on the client. Provider contacted for isolation considerations. Client reports previous positive COVID test result. Ebola Screen: Patient denies travel to an Ebola-affected area in the 21 days before illness onset. Initial Sepsis Screen: Does the patient meet any 2 criteria? RR > 20 per min. No. Patient's initial sepsis screen is negative. Does the patient have a suspected source of infection? Yes:. Risk Assessment: Do you want to hurt yourself or someone else? Patient reports no desire to harm self or others. Onset of symptoms was March 02, 2021. 09:28 Method Of Arrival: Ambulatory tw2 Triage Assessment: 09:28 General: Appears uncomfortable, slender. Pain: Denies pain. Respiratory: Reports tw2 shortness of breath Onset: The symptoms/episode began/occurred , the patient has severe shortness of breath. 20:51 General: Behavior is calm. vg1 Historical: - Allergies: 09:29 Iodinated Contrast Media - IV Dye; tw2 09:29 Aspirin; tw2 09:29 Iodine (swelling and itching); tw2 09:29 Oxycodone; tw2 09:29 Percodan; tw2 - PMHx: 09:29 asbestos; Atrial fibrillation; Congestive heart failure; pulmonary fibrosis; RA; tw2 - Immunization history:: Adult Immunizations up to date, Client reports receiving the 2nd dose of the Covid vaccine, Last tetanus immunization:. - Social history:: Smoking status: . Screenin:34 Abuse screen: Denies threats or abuse. Nutritional screening: No deficits noted. tw2 Tuberculosis screening: No symptoms or risk factors identified. Fall Risk Secondary diagnosis (15 points) impaired mobility. Assessment: 09:26 Reassessment: KIRSTIE Tan assisted getting NC tubing while I got oxygen tank for w/c. tw2 20:51 Respiratory: Airway. vg1 20:51 Cardiovascular: Heart tones S1 S2 Capillary refill < 3 seconds Pulses are 2+ in right vg1 radial artery, right dorsalis pedis artery, left radial artery and left dorsalis pedis artery Rhythm is regular. Respiratory: Airway is patent Trachea midline Respiratory effort is even, labored, Respiratory pattern is paradoxical, Sputum is Breath sounds are diminished in left posterior lower lobe GI: Abdomen is flat, non-distended. : No signs and/or symptoms were reported regarding the genitourinary system. Derm: Skin is intact, is healthy with good turgor. Musculoskeletal: Circulation, motion, and sensation intact. Capillary refill < 3 seconds, Range of motion: intact in all extremities. Vital Signs: 09:28 Pulse Ox 53% on R/A; tw2 09:30 BP 103 / 76; Pulse 54; Resp 25 S; Pulse Ox 92% on 4 lpm NC; jl7 10:21 Weight 75.6 kg; vg1 10:50 BP 103 / 61; Pulse 81; Resp 28; Temp 97.6; Pulse Ox 98% on 4 lpm NC; jl7 19:45 BP 108 / 65; Pulse 100; Resp 18; Pulse Ox 95% on 4 lpm NC; vg1 20:45 BP 116 / 65; Pulse 96; Resp 18; Pulse Ox 98% on 4 lpm NC; vg1 09:28 pt placed on 4L nc at this time and moved to exam room 7. Dr. Holt notified. tw2 [place] Coma Score: 20:45 Eye Response: spontaneous(4). Verbal Response: oriented(5). Motor Response: obeys vg1 commands(6). Total: 15. 20:45 Eye Response: spontaneous(4). Verbal Response: oriented(5). Motor Response: obeys vg1 commands(6). Total: 15. ED Course: 09:17 Patient arrived in ED. am2 09:24 Pino Coffman MD is Private Physician. am2 09:28 Triage completed. tw2 09:29 Arm band placed on. tw2 09:36 Shante Holt MD is Attending Physician. sp3 09:37 Jolene Louis, KIRSTIE is Primary Nurse. jl7 09:43 EKG done, by ED staff. tp1 09:48 XRAY Chest (1 view) In Process Unspecified. EDMS 10:25 Inserted saline lock: 20 gauge in right forearm, using aseptic technique. tp1 10:25 Initial lab(s) drawn, by me, sent to lab. tp1 10:31 CT Chest Wo Con In Process Unspecified. EDMS 11:20 Daryn Ray DO is Hospitalizing Provider. sp3 19:08 Primary Nurse role handed off by Jolene Louis, KIRSTIE eb 20:41 Rosa Lucas, RN is Primary Nurse. vg1 20:51 No provider procedures requiring assistance completed. Patient admitted, IV remains in vg1 place. 20:53 Patient has correct armband on for positive identification. Allergy band placed. Placed vg1 in gown. Bed in low position. Call light in reach. Side rails up X 1. Administered Medications: 10:43 Drug: SOLU-Medrol (methylPrednisoLONE) 125 mg Route: IVP; Site: left forearm; jl7 10:45 Drug: Cefepime 2 grams Route: IVPB; Rate: 200 ml/hr; Infused Over: 30 mins; Site: left jl7 forearm; 20:54 Follow up: Response: No adverse reaction; IV Status: Completed infusion; IV Intake: vg1 100ml 10:49 Drug: Lovenox (enoxaparin) 1 mg/kg Route: Sub-Q; Site: abdomen; jl7 20:54 Follow up: Response: No adverse reaction vg1 Intake: 20:54 IV: 100ml; Total: 100ml. vg1 Outcome: 11:20 Decision to Hospitalize by Provider. sp3 20:52 Admitted to Tele vg1 20:52 Condition: good 20:52 Instructed on the need for admit. 21:26 Patient left the ED. vg1 Signatures: Dispatcher [employer] EDMS Yun Mast RN RN tw2 Jolene Louis, KIRSTIE RN jl7 Jaye Car amSara Diane Victoria, RN RN vg1 Shante Holt MD MD sp3 Pita Kwok tp1 Corrections: (The following items were deleted from the chart) 20:50 20:45 BP 116 / 65; Pulse 96bpm; Resp 18bpm; Pulse Ox 98% RA; vg1 vg1
--- NOTE | 2021-03-02 11:21 | EDPHYS ---
Physician Documentation [facility] Name: Houston Bell Age: 71 yrs Sex: Male : 1950 Arrival Date: 03/02/2021 Time: 09:17 Bed 7 Private MD: Pino Coffman ED Physician Shante Holt HPI: 03/02 09:42 This 71 yrs old Male presents to ER via Ambulatory with complaints of Breathing sp3 Difficulty, Shortness Of Breath, low oxygen at home. 09:42 71-year-old male with a history of atrial fibrillation currently on Xarelto, congestive sp3 heart failure with prior pleural effusion status post chest tube last week, asbestosis, and recent incidental COVID-19 positive test result 3 days ago that was taken prior to a DACIA that was supposed to be done at [facility] to assess possible atrial clot and pericardial effusion as well. Subsequent to that patient has been having increased shortness of breath, dyspnea on exertion and "low" pulse oxygenation readings at home by home monitor. Patient presents to the ED today with his and his daughter who is on staff here in the ER is present as well. Patient denies headache, fever, neck pain, lower back pain, abdominal pain, nausea, vomiting, diarrhea, neuro symptoms, syncope, near syncope, rash, any other review of systems at this time.. Historical: - Allergies: 09:29 Iodinated Contrast Media - IV Dye; tw2 09:29 Aspirin; tw2 09:29 Iodine (swelling and itching); tw2 09:29 Oxycodone; tw2 09:29 Percodan; tw2 - PMHx: 09:29 asbestos; Atrial fibrillation; Congestive heart failure; pulmonary fibrosis; RA; tw2 - Immunization history:: Adult Immunizations up to date, Client reports receiving the 2nd dose of the Covid vaccine, Last tetanus immunization:. - Social history:: Smoking status: . ROS: 09:44 Constitutional: Negative for fever, chills, and weight loss, Eyes: Negative for injury, sp3 pain, redness, and discharge, ENT: Negative for injury, pain, and discharge, Neck: Negative for injury, pain, and swelling, Abdomen/GI: Negative for abdominal pain, nausea, vomiting, diarrhea, and constipation, Back: Negative for injury and pain, MS/Extremity: Negative for injury and deformity, Skin: Negative for injury, rash, and discoloration, Neuro: Negative for headache, weakness, numbness, tingling, and seizure, Psych: Negative for depression, anxiety, suicide ideation, homicidal ideation, and hallucinations, Allergy/Immunology: Negative for hives, rash, and allergies. 09:44 All other systems are negative. Exam: 09:44 Constitutional: This is a well developed, well nourished patient who is awake, alert, sp3 and in no acute distress. Head/Face: Normocephalic, atraumatic. Eyes: Pupils equal round and reactive to light, extra-ocular motions intact. Lids and lashes normal. Conjunctiva and sclera are non-icteric and not injected. Cornea within normal limits. Periorbital areas with no swelling, redness, or edema. ENT: Nares patent. No nasal discharge, no septal abnormalities noted. External auditory canals are clear. Oropharynx with no redness, swelling, or masses, exudates, or evidence of obstruction, uvula midline. Mucous membranes moist. Neck: Trachea midline, no thyromegaly or masses palpated, and no cervical lymphadenopathy. Supple, full range of motion without nuchal rigidity, or vertebral point tenderness. No Meningismus. Abdomen/GI: Soft, non-tender, with normal bowel sounds. No distension or tympany. No guarding or rebound. No evidence of tenderness throughout. Back: No spinal tenderness. No costovertebral tenderness. Full range of motion. 09:44 Cardiovascular: Regular rate and rhythm with a normal S1 and S2. No gallops, murmurs, or rubs. Normal PMI, no JVD. No pulse deficits. 09:44 Chest/axilla: Pain on left lateral ribs secondary to old fractures.. 09:44 Respiratory: Decreased breath sounds on the left side.. Vital Signs: 09:28 Pulse Ox 53% on R/A; tw2 09:30 BP 103 / 76; Pulse 54; Resp 25 S; Pulse Ox 92% on 4 lpm NC; jl7 10:21 Weight 75.6 kg; vg1 10:50 BP 103 / 61; Pulse 81; Resp 28; Temp 97.6; Pulse Ox 98% on 4 lpm NC; jl7 19:45 BP 108 / 65; Pulse 100; Resp 18; Pulse Ox 95% on 4 lpm NC; vg1 20:45 BP 116 / 65; Pulse 96; Resp 18; Pulse Ox 98% on 4 lpm NC; vg1 09:28 pt placed on 4L nc at this time and moved to exam room 7. Dr. Holt notified. tw2 Niki Coma Score: 20:45 Eye Response: spontaneous(4). Verbal Response: oriented(5). Motor Response: obeys vg1 commands(6). Total: 15. 20:45 Eye Response: spontaneous(4). Verbal Response: oriented(5). Motor Response: obeys vg1 commands(6). Total: 15. MDM: 09:51 Data reviewed: vital signs, nurses notes. ED course: Will order cardiac work-up and sp3 chest x-ray to assess respiratory status as well as a venous blood gas. CT scan will be added as needed noncontrast as patient has not iodine allergy. Pulse oxygenation on 4 L in the ED is 92% to 94% with a good waveform. Patient is not in any extremis, not tripoding, and has no accessory muscle use. Symptoms are likely due to congestive heart failure versus return of pleural effusion versus COVID-19 related respiratory symptoms. I am not highly suspicious for acute coronary syndrome, pulmonary embolism, thoracic dissection, or any other critical findings at this time. Will likely admit patient once etiology is further refined.. 11:20 Patient medically screened. sp3 03/02 09:37 Order name: Basic Metabolic Panel sp3 03/02 09:37 Order name: CBC with Diff sp3 03/02 09:37 Order name: LFT's sp3 03/02 09:37 Order name: Magnesium sp3 03/02 09:37 Order name: NT PRO-BNP; Complete Time: 11:18 sp3 03/02 09:37 Order name: PT-INR; Complete Time: 11:18 sp3 03/02 09:37 Order name: Troponin (emerg Dept Use Only); Complete Time: 11:18 sp3 03/02 09:37 Order name: ABG: VENOUS PLEASE; Complete Time: 11:18 sp3 03/02 09:38 Order name: Basic Metabolic Panel; Complete Time: 11:18 EDMS 03/02 09:38 Order name: CBC with Automated Diff; Complete Time: 11:18 EDMS 03/02 09:38 Order name: Liver (Hepatic) Function; Complete Time: 11:18 EDMS 03/02 09:38 Order name: Magnesium; Complete Time: 11:18 EDMS 03/02 10:10 Order name: Blood Culture Adult (2) sp3 03/02 10:10 Order name: Procalcitonin sp3 03/02 09:37 Order name: XRAY Chest (1 view) sp3 03/02 09:37 Order name: EKG; Complete Time: 09:38 sp3 03/02 09:37 Order name: Cardiac monitoring; Complete Time: 09:54 sp3 03/02 09:37 Order name: EKG - Nurse/Tech; Complete Time: 09:54 sp3 03/02 09:37 Order name: IV Saline Lock; Complete Time: 09:54 sp3 03/02 09:37 Order name: Labs collected and sent; Complete Time: 09:54 sp3 03/02 09:37 Order name: O2 Per Protocol; Complete Time: 09:54 sp3 03/02 09:37 Order name: O2 Sat Monitoring; Complete Time: 09:54 sp3 03/02 10:10 Order name: Ferritin; Complete Time: 11:18 sp3 03/02 10:10 Order name: CT Chest Wo Con; Complete Time: 11:18 sp3 03/02 11:53 Order name: SARS-COV-2 RT PCR (Document "Date of Onset" if Symptomatic); Complete Time: eb 13:54 03/02 12:51 Order name: Social Service Consult EDMS Administered Medications: 10:43 Drug: SOLU-Medrol (methylPrednisoLONE) 125 mg Route: IVP; Site: left forearm; jl7 10:45 Drug: Cefepime 2 grams Route: IVPB; Rate: 200 ml/hr; Infused Over: 30 mins; Site: left jl7 forearm; 20:54 Follow up: Response: No adverse reaction; IV Status: Completed infusion; IV Intake: vg1 100ml 10:49 Drug: Lovenox (enoxaparin) 1 mg/kg Route: Sub-Q; Site: abdomen; jl7 20:54 Follow up: Response: No adverse reaction vg1 Disposition: 11:19 Critical Care:. sp3 Disposition Summary: 03/02/21 11:20 Hospitalization Ordered Hospitalization Status: Inpatient Admission sp3 Provider: Daryn Ray sp3 Condition: Fair sp3 Problem: new sp3 Symptoms: have worsened sp3 Bed/Room Type: Standard sp3 Location: Telemetry/MedSurg (Inpatient)(03/02/21 20:25) cg Room Assignment: [facility](03/02/21 20:25) Diagnosis - Pneumonia due to SARS-associated coronavirus sp3 Forms: - Medication Reconciliation Form sp3 - SBAR form sp3 Signatures: Dispatcher [employer] EDMS Thuy Borja RN RN Subhash Palmer PA PA jr8 Garcia, Cindy RN RN Yun Mast RN RN tw2 Jolene Louis RN RN jl7 Rosa Lucas RN RN vg1 Shante Holt MD MD sp3 Corrections: (The following items were deleted from the chart) 19:02 11:20 Telemetry/MedSurg (Inpatient) sp3 ss 19:02 11:20 sp3 ss 20:25 19:02 [facility] ER HOLD ss cg 20:25 19:02 ERHOLD- ss cg
--- NOTE | 2021-03-02 11:25 | RAD REPORT ---
EXAM DESCRIPTION: RAD - Chest Single View - 03/02/2021 9:48 am CLINICAL HISTORY: SOB, COVID positive COMPARISON: Portable February 19 TECHNIQUE: AP portable chest image was obtained 03/02/2021 9:48 am . FINDINGS: Left-sided pleural effusion and parenchymal opacification are not substantially different from February 19 imaging. The no left-sided pneumothorax seen. Anterior remnant pneumothorax can't be present an occult on a portable examination. Trachea remains in the midline. No large right-sided pleural effusion identifiable. There is new airspace opacification throughout mo st of the right lung field. There is relative sparing of the apex. Cardiac silhouette is similar to prior imaging. No upper lobe vascular engorgement seen. No right-si ded pneumothorax. Left-sided rib fractures are not clearly different positioning from prior imaging. IMPRESSION: New airspace opacification scattered throughout the right lung field without matching fi nding in the left lung field. Given the positive COVID test, an atypical presentation of COVID-19 pneumonia would be possible. A no n COVID infectious alveolitis would also be possible. Atypical presentation of failure/ volume overlo ad also a possibility. Left-sided pleural effusion and parenchymal opacification not clearly different from February 19 imag ing. No measurable left-side pneumothorax seen though small anterior pneumothoraces can be occult on portable imaging.
--- NOTE | 2021-03-02 12:50 | P.HP ---
Certification for Inpatient Patient admitted to: Inpatient With expected LOS: >2 Midnights Patient will require the following post-hospital care: Other (Home oxygen) Practitioner: I am a practitioner with admitting privileges, knowledge of patient current condition, hospital course, and medical plan of care. Services: Services provided to patient in accordance with Admission requirements found in Title 42 Section 412.3 of the Code of Federal Regulations Patient History Date of Service: 03/02/21 Primary Care Provider: Dr. Coffman; Cardiology-Dr. Escobedo; Pulmonary-Dr. Brewster Reason for admission: SOB Allergies Iodinated Contrast Media [Iodinated Contrast Media - IV Dye] Allergy (Verified 01/12/21 16:05) swelling , whelts aspirin [From Percodan] Adverse Reaction (Verified 01/12/21 16:05) hallucinations oxycodone [From Percodan] Adverse Reaction (Verified 01/12/21 16:05) hallucinations Home medications list reviewed: Yes Home Medications: Vit A/Vit C/Vit E/Zinc/Copper [Icaps Areds Formula Dr Tablet] 1 each PO BID 04/18/16 Rivaroxaban [Xarelto] 20 mg PO DAILY AT SUPPER 30 Days #30 tablet 01/04/21 Amiodarone HCl [Cordarone*] 1 tab PO BID 02/15/21 Carvedilol [Coreg] 2 tab PO BID 02/15/21 Famotidine [Pepcid] 20 mg PO DAILY 02/15/21 Furosemide [Lasix*] 40 mg PO BID 02/15/21 Hydrocodone 5/APAP 325 [[place] 5/325*] 1 tab PO Q6HP PRN #30 tab 02/19/21 - Past Medical/Surgical History Diabetic: No -: Rheumatoid arthritis -: Pulmonary fibrosis -: Atrial fibrillation on chronic anticoagulation therapy -: Chronic systolic CHF with EF of 25% -: Hypertension -: Colon cancer resection -: Knee surgery -: Shoulder surgery -: Tonsillectomy -: Cardioversion December 2020 Psychosocial/ Personal History: Patient lives at home. - Family History Mother -: Heart disease Brother -: Heart disease - Social History Smoking Status: Unknown if ever smoked Alcohol use: No CD- Drugs: No Caffeine use: Yes Place of Residence: Home Review of Systems General: Weakness, As per HPI Eyes: Unremarkable ENT: Unremarkable Respiratory: Cough, Shortness of Breath, SOB with Excertion, As per HPI Cardiovascular: Unremarkable Gastrointestinal: Unremarkable Genitourinary: Unremarkable Musculoskeletal: Unremarkable Integumentary: Unremarkable Neurological: Unremarkable Lymphatics: Unremarkable Physical Examination - Studies Laboratory Data (last 24 hrs) 03/02/21 10:10: PT 34.5 H, INR 2.97 03/02/21 10:10: WBC 10.60 D, Hgb 8.7 L, Hct 26.7 L, Plt Count 402 03/02/21 10:10: Sodium 136, Potassium 4.2, BUN 29 H, Creatinine 1.56 H, Glucose 148 H, Magnesium 3.0 H D, Total Bilirubin 0.7, AST 33, ALT 23, Alkaline Phosphatase 139 H Assessment and Plan - Plan COVID: Recent positive test. Recheck pending. Patient unvaccinated Chest x-ray: COMPARISON: Portable February 19 TECHNIQUE: AP portable chest image was obtained 03/02/2021 9:48 am . FINDINGS: Left-sided pleural effusion and parenchymal opacification are not substantially different from February 19 imaging. The no left-sided pneumothorax seen. Anterior remnant pneumothorax can't be present an occult on a portable examination. Trachea remains in the midline. No large right-sided pleural effusion identifiable. There is new airspace opacification throughout most of the right lung field. There is relative sparing of the apex. Cardiac silhouette is similar to prior imaging. No upper lobe vascular engorgement seen. No right-sided pneumothorax. Left-sided rib fractures are not clearly different positioning from prior imaging. IMPRESSION: New airspace opacification scattered throughout the right lung field without matching finding in the left lung field. Given the positive COVID test, an atypical presentation of COVID-19 pneumonia would be possible. A non COVID infectious alveolitis would also be possible. Atypical presentation of failure/ volume overload also a possibility. Left-sided pleural effusion and parenchymal opacification not clearly different from February 19 imaging. No measurable left-side pneumothorax seen though small anterior pneumothoraces can be occult on portable imaging. CT scan: COMPARISON: Thorax Wo Con dated 02/17/2021; Thorax Wo Con dated 02/15/2021; Thorax Wo Con dated 04/25/2020 TECHNIQUE: Axial 5 mm thick images of the chest were obtained without IV contrast. All CT scans are performed using dose optimization technique as appropriate and may include automated exposure control or mA/KV adjustment according to patient size. FINDINGS: A small to moderate right-sided pleural effusion is present not substantially different from the February 17 examination. Patient does have ground-glass opacification throughout much of the right upper and right middle lobe with less prominent ground-glass opacities in the anterior portion and superior portion of the right lower lobe. Small amount of atelectasis is present posterior gutter on the right. The ground-glass opacities extend from hilum to the periphery of the right hemithorax. Air bronchograms are seen. No similar ground-glass opacification pattern seen on the left. The patient does have remnant circumferential pleural fluid slightly less in volume than seen on the February 17 CT study. There is a trace remnant of pneumothorax at the left base. No pleural based mass. Several small mediastinal lymph nodes are present slightly larger than February 17. No gross aortic or pulmonary artery finding suspected. Assessment is limited in the absence of IV contrast. No cardiac chamber enlargement seen. The 2 anterior and posterior loculated pericardial effusions are still present. Maximum thickness anteriorly is 4 cm with the posterior maximum thickness 2.9 cm. No change of significance in positioning of the left-sided rib fractures. No chest wall mass or abnormal axillary lymphadenopathy. IMPRESSION: Prominent ground-glass airspace opacities have developed throughout most of the right upper lobe and right middle lobe with less prominent ground- glass opacities in the right lower lobe. No similar finding in the left hem ithorax. The unilateral central to peripheral ground-glass opacification pattern is not classic for COVID-19 pneumonia though that would still be a consideration. Unilateral pattern is not classic presentation of failure/volume overload. An infectious pneumonitis or alveolar edema from volume overload or failure both possible. Large loculated pericardial effusions are not clearly different from February 17 imaging. Rind of remnant pleural effusion on the left is similar to the prior study. There is only minimal remnant pneumothorax seen in the left base. Enlarged mediastinal lymph nodes compared February 17 probably reactive. Recent echocardiogram: MEASUREMENTS (cm) DIASTOLIC (NORMALS) SYSTOLIC (NORMALS) IVSd 0.8 (0.6-1.2) LA Diam 3.8 (1.9-4.0) LVEF 60% LVIDd 2.8 (3.5-5.7) LVIDs 2.0 (2.0-3.5) %FS 30% LVPWd 0.9 (0.6-1.2) Ao Diam (2.0-3.7) 2 DIMENSIONAL ASSESSMENT: RIGHT ATRIUM: QUESTIONABLE MASS IN THE RIGHT ATRIUM LEFT ATRIUM: NORAML RIGHT VENTRICLE: NORMAL LEFT VENTRICLE: NORMAL TRICUSPID VALVE: MILD TRICUSPID REGURGTITATION MITRAL VALVE: MILD MITRAL REGURGITATION PULMONIC VALVE: MILD PULMONIC INSUFFIENCY AORTIC VALVE: MILD AORTIC INSUFFIENCY PERICARDIAL EFFUSION: LOCALISED POSTERIOR EFFUSION AORTIC ROOT: NORMAL LEFT VENTRICULAR WALL MOTION: NORMAL DOPPLER/COLOR FLOW: SEE BELOW COMMENTS: NORMAL LEFT VENTRICULAR EJECTION FRACTION 55-60%. MILD MITRAL, MILD TRICUSPID REGURGITATION, MILD PULMONIC INSUFFIENCY, MILD AORTIC INSUFFIENCY. QUESTIONABLE RIGHT ATRIAL MASS. LOCALIZED POSTERIOR EFFUSION. Recent Cytology from Pleural effusion: Diagnosis: No malignant cells seen. predominantly blood identified. Physical Exam: GENERAL: The patient is a well-developed, well-nourished, in no apparent distress. Alert and oriented x3. VITAL SIGNS: Reviewed HEENT: Head is normocephalic and atraumatic. Extraocular muscles are intact. Pupils are equal, round, and reactive to light and accommodation. Nares appeared normal. Mouth is well hydrated and without lesions. Mucous membranes are moist. NECK: Supple. No carotid bruits. No lymphadenopathy or thyromegaly. LUNGS: Clear anteriorly. Currently on 4 L per nasal cannula. Slightly decreased to the left base. HEART: Regular rate and rhythm, no appreciable gallops, rubs, murmurs or extra heart sounds ABDOMEN: Soft, nontender, and nondistended. Positive bowel sounds. No hepatosplenomegaly was noted. EXTREMITIES: Without any cyanosis, clubbing, rash, lesions or peripheral edema. No peripheral edema noted. NEUROLOGIC: The patient is oriented to person, place and time. Strength and sensation are grossly intact. Face is symmetric. SKIN: Normal color, turgor and temperature. No ulcerations or rashes noted. Impression: Dyspnea, Hypoxia secondary to COVID pneumonia Chronic Diastolic CHF with recent ECHO showing EF of 55/60% Chronic loculated posterior pericardial effusion Pulmonary Fibrosis Acute renal insufficiency Hypertension CT scan showing remnant of of pleural effusion on the left side, minimal remnant pneumothorax and enlarged mediastinal lymphadenopathy with recent hospitalization for left pleural effusion status post chest tube placement and removal Chronic atrial fibrillation on chronic anticoagulation therapy Rheumatoid arthritis Plan: Dyspnea, Hypoxia secondary to COVID pneumonia: Patient admitted for further evaluation and treatment. Patient recently tested positive for Covid. Recheck Covid test upon admission. We will continue IV Solu-Medrol. Continue vitamin supplementation. Maintain sats above 93%. Continue to wean off. Pulmonology consulted. Await recommendations. Will monitor closely. Recheck chest x-ray. Monitor CRP and ferritin. Anticipate continued improvement. Patient is unvaccinated. Chronic Diastolic CHF with recent ECHO showing EF of 55/60%: Recent echocardiogram shows EF of 55 to 60%. Continue Lasix but restart tomorrow due to acute renal insufficiency likely mild dehydration. Continue 1500 cc/day fluid restriction. Cardiology consulted for further recommendation. Chronic loculated posterior pericardial effusion: Patient was to have outpatient transesophageal echocardiogram to evaluate this past Friday. Unfortunately he tested positive for Covid. He was asymptomatic at that time. This has been rescheduled. Pulmonary Fibrosis: Continue to monitor closely. Pulmonology consulted. Acute renal insufficiency: Nephrology consulted. Await recommendations. Encourage oral intake. Continue 1500 cc/day fluid restriction. We will hold Lasix today and restart tomorrow. Will monitor renal function. Will monitor and adjust medication. Hypertension: Continue carvedilol 3.125 mg 1 pill twice daily. Parameters in place to hold CT scan showing remnant of of pleural effusion on the left side, minimal remnant pneumothorax and enlarged mediastinal lymphadenopathy with recent hospitalization for left pleural effusion status post chest tube placement and removal: Patient recently hospitalized with large left pleural effusion. Patient had chest tube placement at that time. This was removed. Remnant findings noted. Mediastinal lymphadenopathy likely reactive. Continue to monitor chest x-ray. Continue oxygen. Await recommendations from pulmonology. Chronic atrial fibrillation on anticoagulation therapy: Continue with Xarelto and carvedilol. Rheumatoid arthritis: Patient currently on Humira. Will hold medication while hospitalized. Continue with tramadol as needed for pain. Code Status: Full Code DVT prophylaxis: Xarelto Advanced Care Planning-30 minutes: Home at discharge likely with home oxygen. Discharge Plan: Home Plan to discharge in: Greater than 2 days - Advance Directives Does patient have a Living Will: Yes Does patient have a Durable POA for Healthcare: Yes - Code Status/Comfort Care Code Status Assessed: Yes (Full code) Time Spent Managing Pts Care (In Minutes): 55
[2021-03-02 14:54] VITALS: BMI 23.8
[2021-03-02] MEDS ORDERED: ONDANSETRON 4 MG/2 ML VIAL IV PRN (15:31)
[2021-03-02] MEDS ORDERED: AZITHROMYCIN IV 500 MG in NA CHLORIDE 0.9% 250 ML IVPB SCH (15:31)
[2021-03-02] MEDS ORDERED: CEFTRIAXONE 1,000 MG in NA CHLORIDE 0.9% 50 ML IVPB SCH (15:31)
[2021-03-02] MEDS ORDERED: ACETAMINOPHEN 500 MG TAB PO PRN (15:31)
[2021-03-02] MEDS: METHYLPREDNISOLONE 40 MG INJ IV SCH (17:00)
[2021-03-02] MEDS: RIVAROXABAN 20 MG TABLET PO SCH (17:00)
[2021-03-02] MEDS ORDERED: CEFTRIAXONE 1000 MG/VIAL ONE (17:12)
[2021-03-02] MEDS ORDERED: AZITHROMYCIN 500 MG INJ IVPB ONE (17:12)
[2021-03-02] MEDS ORDERED: METHYLPREDNISOLONE 40 MG INJ ONE (17:12)
[2021-03-02] MEDS ORDERED: RIVAROXABAN 20 MG TABLET PO ONE (17:12)
[2021-03-02] MEDS ORDERED: NA CHLORIDE 0.9% 250 ML ONE (17:13)
[2021-03-02] MEDS: carvediloL 3.125 MG TAB PO SCH (18:00)
[2021-03-02] MEDS: ARFORMOTEROL TARTRATE 15 MCG/2 ML VIAL.NEB NEB SCH (19:35)
[2021-03-02] MEDS ORDERED: ARFORMOTEROL TARTRATE 15 MCG/2 ML VIAL.NEB ONE (19:38)
--- NOTE | 2021-03-02 23:16 | P.CNS ---
Date of Consult: 03/02/21 Reason for Consult: JOSESITO/ CKD Requesting Physician: Daryn Ray Primary Care Provider: Dr. Coffman; Cardiology-Dr. Escobedo; Pulmonary-Dr. Brewster Chief Complaint: SOB History of Present Illness: 71 yo WM CKD, CHF presented to the ER with 3 days of moderate, progressive dyspnea in the setting of CHF. 09:42 This 71 yrs old Male presents to ER via Ambulatory with complaints of Breathing sp3 Difficulty, Shortness Of Breath, low oxygen at home. 09:42 71-year-old male with a history of atrial fibrillation currently on Xarelto, congestive sp3 heart failure with prior pleural effusion status post chest tube last week, asbestosis, and recent incidental COVID-19 positive test result 3 days ago that was taken prior to a DACIA that was supposed to be done at [facility] to assess possible atrial clot and pericardial effusion as well. Subsequent to that patient has been having increased shortness of breath, dyspnea on exertion and "low" pulse oxygenation readings at home by home monitor. Patient presents to the ED today with his and his daughter who is on staff here in the ER is present as well. Patient denies headache, fever, neck pain, lower back pain, abdominal pain, nausea, vomiting, diarrhea, neuro symptoms, syncope, near syncope, rash, any other review of systems at this time.. Allergies Iodinated Contrast Media [Iodinated Contrast Media - IV Dye] Allergy (Verified 01/12/21 16:05) swelling , whelts aspirin [From Percodan] Adverse Reaction (Verified 01/12/21 16:05) hallucinations oxycodone [From Percodan] Adverse Reaction (Verified 01/12/21 16:05) hallucinations Home medications list reviewed: Yes Home Medications: Vit A/Vit C/Vit E/Zinc/Copper [Icaps Areds Formula Dr Tablet] 1 each PO BID 04/18/16 Rivaroxaban [Xarelto] 20 mg PO DAILY AT SUPPER 30 Days #30 tablet 01/04/21 Amiodarone HCl [Cordarone*] 1 tab PO BID 02/15/21 Carvedilol [Coreg] 2 tab PO BID 02/15/21 Famotidine [Pepcid] 20 mg PO DAILY 02/15/21 Furosemide [Lasix*] 40 mg PO BID 02/15/21 Hydrocodone 5/APAP 325 [[place] 5/325*] 1 tab PO Q6HP PRN #30 tab 02/19/21 - Past Medical/Surgical History Diabetic: No -: Rheumatoid arthritis -: Pulmonary fibrosis -: Atrial fibrillation on chronic anticoagulation therapy -: Chronic systolic CHF with EF of 25% -: Hypertension -: Colon cancer resection -: Knee surgery -: Shoulder surgery -: Tonsillectomy -: Cardioversion December 2020 Psychosocial/ Personal History: Patient lives at home. - Family History Mother Medical History: Heart disease Brother Medical History: Heart disease - Social History Alcohol use: No CD- Drugs: No Caffeine use: No Place of Residence: Home Review of Systems 10-point ROS is otherwise unremarkable General: Weakness, Malaise Respiratory: SOB with Excertion Cardiovascular: Edema Physical Examination Temp Pulse Resp BP Pulse Ox 97.6 F 74 18 116/80 94 03/02/21 21:30 03/02/21 21:30 03/02/21 21:30 03/02/21 21:30 03/02/21 21:30 General: In no apparent distress, Oriented x3, Cooperative HEENT: Atraumatic Neck: Supple Respiratory: Clear to auscultation bilaterally Cardiovascular: Regular rate/rhythm, Edema Gastrointestinal: Soft and benign, Non-distended Musculoskeletal: No clubbing, No contractures Integumentary: No rashes, No cyanosis Neurological: Normal speech Laboratory Data (last 24 hrs) 03/02/21 10:10: PT 34.5 H, INR 2.97 03/02/21 10:10: WBC 10.60 D, Hgb 8.7 L, Hct 26.7 L, Plt Count 402 03/02/21 10:10: Sodium 136, Potassium 4.2, BUN 29 H, Creatinine 1.56 H, Glucose 148 H, Magnesium 3.0 H D, Total Bilirubin 0.7, AST 33, ALT 23, Alkaline Phosphatase 139 H Imagings Data: EXAM DESCRIPTION: RAD - Chest Single View - 03/02/2021 9:48 am CLINICAL HISTORY: SOB, COVID positive COMPARISON: Portable February 19 TECHNIQUE: AP portable chest image was obtained 03/02/2021 9:48 am . FINDINGS: Left-sided pleural effusion and parenchymal opacification are not substantially different from February 19 imaging. The no left-sided pneumothorax seen. Anterior remnant pneumothorax can't be present an occult on a portable examination. Trachea remains in the midline. No large right-sided pleural effusion identifiable. There is new airspace opacification throughout most of the right lung field. There is relative sparing of the apex. Cardiac silhouette is similar to prior imaging. No upper lobe vascular engorgement seen. No right-sided pneumothorax. Left-sided rib fractures are not clearly different positioning from prior imaging. IMPRESSION: New airspace opacification scattered throughout the right lung field without matching finding in the left lung field. Given the positive COVID test, an atypical presentation of COVID-19 pneumonia would be possible. A non COVID infectious alveolitis would also be possible. Atypical presentation of failure/ volume overload also a possibility. Left-sided pleural effusion and parenchymal opacification not clearly different from February 19 imaging. No measurable left-side pneumothorax seen though small anterior pneumothoraces can be occult on portable imaging. EXAM DESCRIPTION: CT - Thorax Wo Con - 03/02/2021 10:32 am CLINICAL HISTORY: COVID positive, history of recent chest tube placement for left-sided pleural fluid. COMPARISON: Thorax Wo Con dated 02/17/2021; Thorax Wo Con dated 02/15/2021; Thorax Wo Con dated 04/25/2020 TECHNIQUE: Axial 5 mm thick images of the chest were obtained without IV contrast. All CT scans are performed using dose optimization technique as appropriate and may include automated exposure control or mA/KV adjustment according to patient size. FINDINGS: A small to moderate right-sided pleural effusion is present not substantially different from the February 17 examination. Patient does have ground-glass opacification throughout much of the right upper and right middle lobe with less prominent ground-glass opacities in the anterior portion and superior portion of the right lower lobe. Small amount of atelectasis is present posterior gutter on the right. The ground-glass opacities extend from hilum to the periphery of the right hemithorax. Air bronchograms are seen. No similar ground-glass opacification pattern seen on the left. The patient does have remnant circumferential pleural fluid slightly less in volume than seen on the February 17 CT study. There is a trace remnant of pneumothorax at the left base. No pleural based mass. Several small mediastinal lymph nodes are present slightly larger than February 17. No gross aortic or pulmonary artery finding suspected. Assessment is limited in the absence of IV contrast. No cardiac chamber enlargement seen. The 2 anterior and posterior loculated pericardial effusions are still present. Maximum thickness anteriorly is 4 cm with the posterior maximum thickness 2.9 cm. No change of significance in positioning of the left-sided rib fractures. No chest wall mass or abnormal axillary lymphadenopathy. IMPRESSION: Prominent ground-glass airspace opacities have developed throughout most of the right upper lobe and right middle lobe with less prominent ground- glass opacities in the right lower lobe. No similar finding in the left hemithorax. The unilateral central to peripheral ground-glass opacification pattern is not classic for COVID-19 pneumonia though that would still be a consideration. Unilateral pattern is not classic presentation of failure/volume overload. An in fectious pneumonitis or alveolar edema from volume overload or failure both possible. Large loculated pericardial effusions are not clearly different from February 17 imaging. Rind of remnant pleural effusion on the left is similar to the prior study. There is only minimal remnant pneumothorax seen in the left base. Enlarged mediastinal lymph nodes compared February 17 probably reactive. COMMENTS: NORMAL LEFT VENTRICULAR EJECTION FRACTION 55-60%. MILD MITRAL, MILD TRICUSPID REGURGITATION, MILD PULMONIC INSUFFIENCY, MILD AORTIC INSUFFIENCY. QUESTIONABLE RIGHT ATRIAL MASS. LOCALIZED POSTERIOR EFFUSION. Conclusions/Impression: JOSESITO in the setting of hypotension and complicated by CRS CKD III -No NSAIDs -Restart furosemide HTN with CKD/ CHF -Continue Coreg Diastolic CHF, A/C -Continue Coreg -Continue Furosemide Severe malnutrition -Start Ensure -Consider IV Albumin prn Anemia in chronic illness -Monitor H&H -Transfuse PRBC as needed Thank you kindly for the consultation. Case reviewed with Dr. Ray
[2021-03-03] MEDS: METHYLPREDNISOLONE 40 MG INJ IV SCH (01:22)
[2021-03-03 04:16] LABS: Urine Appearance CLEAR (Clear); Urine Bilirubin NEGATIVE (Negative); Urine Blood NEGATIVE (Negative); Urine Color YELLOW (Yellow); Urine Glucose NEGATIVE (Negative); Urine Protein NEGATIVE (Negative); Urine Specific Gravity 1.015 (1.005-1.030); Urine Urobilinogen 0.2 mg/dL (0.2-1.0)
[2021-03-03 04:18] LABS: Urine Microscopic Reflex NO UMIC
--- NOTE | 2021-03-03 05:44 | P.PN ---
Subjective Date of Service: 03/03/21 Primary Care Provider: Dr. Coffman; Cardiology-Dr. Escobedo; Pulmonary-Dr. Brewster Chief Complaint: SOB Subjective: Other (Patient remained stable. No significant respiratory distress noted. Currently on 4 L per nasal cannula.) Physical Examination - Vital Signs Temperature: 97.8 F Blood Pressure: 98/65 Pulse: 67 Respirations: 16 Pulse Ox (%): 96 - Studies Laboratory Data (last 24 hrs) 03/02/21 10:10: PT 34.5 H, INR 2.97 03/02/21 10:10: WBC 10.60 D, Hgb 8.7 L, Hct 26.7 L, Plt Count 402 03/02/21 10:10: Sodium 136, Potassium 4.2, BUN 29 H, Creatinine 1.56 H, Glucose 148 H, Magnesium 3.0 H D, Total Bilirubin 0.7, AST 33, ALT 23, Alkaline Phosphatase 139 H Assessment & Plan Discharge Plan: Home Plan to discharge in: 24 Hours Physician Review Additional Text: COVID: Recent positive test. Negative test in hospital with repeat negative. Patient unvaccinated Chest x-ray: COMPARISON: Portable February 19 TECHNIQUE: AP portable chest image was obtained 03/02/2021 9:48 am . FINDINGS: Left-sided pleural effusion and parenchymal opacification are not substantially different from February 19 imaging. The no left-sided pneumothorax seen. Anterior remnant pneumothorax can't be present an occult on a portable examination. Trachea remains in the midline. No large right-sided pleural effusion identifiable. There is new airspace opacification throughout most of the right lung field. There is relative sparing of the apex. Cardiac silhouette is similar to prior imaging. No upper lobe vascular engorgement seen. No right-sided pneumothorax. Left-sided rib fractures are not clearly different positioning from prior imaging. IMPRESSION: New airspace opacification scattered throughout the right lung field without matching finding in the left lung field. Given the positive COVID test, an atypical presentation of COVID-19 pneumonia would be possible. A non COVID infectious alveolitis would also be possible. Atypical presentation of failure/ volume overload also a possibility. Left-sided pleural effusion and parenchymal opacification not clearly different from February 19 imaging. No measurable left-side pneumothorax seen though small anterior pneumothoraces can be occult on portable imaging. CT scan: COMPARISON: Thorax Wo Con dated 02/17/2021; Thorax Wo Con dated 02/15/2021; Thorax Wo Con dated 04/25/2020 TECHNIQUE: Axial 5 mm thick images of the chest were obtained without IV contrast. All CT scans are performed using dose optimization technique as appropriate and may include automated exposure control or mA/KV adjustment according to patient size. FINDINGS: A small to moderate right-sided pleural effusion is present not substantially different from the February 17 examination. Patient does have ground-glass opacification throughout much of the right upper and right middle lobe with less prominent ground-glass opacities in the anterior portion and superior portion of the right lower lobe. Small amount of atelectasis is present posterior gutter on the right. The ground-glass opacities extend from hilum to the periphery of the right hemithorax. Air bronchograms are seen. No similar ground-glass opacification pattern seen on the left. The patient does have remnant circumferential pleural fluid slightly less in volume than seen on the February 17 CT study. There is a trace remnant of pneumothorax at the left base. No pleural based mass. Several small mediastinal lymph nodes are present slightly larger than February 17. No gross aortic or pulmonary artery finding suspected. Assessment is limited in the absence of IV contrast. No cardiac chamber enlargement seen. The 2 anterior and posterior loculated pericardial effusions are still present. Maximum thickness anteriorly is 4 cm with the posterior maximum thickness 2.9 cm. No change of significance in positioning of the left-sided rib fractures. No chest wall mass or abnormal axillary lymphadenopathy. IMPRESSION: Prominent ground-glass airspace opacities have developed throughout most of the right upper lobe and right middle lobe with less prominent ground- glass opacities in the right lower lobe. No similar finding in the left hemithorax. The unilateral central to peripheral ground-glass opacification pattern is not classic for COVID-19 pneumonia though that would still be a consideration. Unilateral pattern is not classic presentation of failure/volume overload. An infectious pneumonitis or alveolar edema from volume overload or failure both possible. Large loculated pericardial effusions are not clearly different from February 17 imaging. Rind of remnant pleural effusion on the left is similar to the prior study. There is only minimal remnant pneumothorax seen in the left base. Enlarged mediastinal lymph nodes compared February 17 probably reactive. Recent echocardiogram: MEASUREMENTS (cm) DIASTOLIC (NORMALS) SYSTOLIC (NORMALS) IVSd 0.8 (0.6-1.2) LA Diam 3.8 (1.9-4.0) LVEF 60% LVIDd 2.8 (3.5-5.7) LVIDs 2.0 (2.0-3.5) %FS 30% LVPWd 0.9 (0.6-1.2) Ao Diam (2.0-3.7) 2 DIMENSIONAL ASSESSMENT: RIGHT ATRIUM: QUESTIONABLE MASS IN THE RIGHT ATRIUM LEFT ATRIUM: NORAML RIGHT VENTRICLE: NORMAL LEFT VENTRICLE: NORMAL TRICUSPID VALVE: MILD TRICUSPID REGURGTITATION MITRAL VALVE: MILD MITRAL REGURGITATION PULMONIC VALVE: MILD PULMONIC INSUFFIENCY AORTIC VALVE: MILD AORTIC INSUFFIENCY PERICARDIAL EFFUSION: LOCALISED POSTERIOR EFFUSION AORTIC ROOT: NORMAL LEFT VENTRICULAR WALL MOTION: NORMAL DOPPLER/COLOR FLOW: SEE BELOW COMMENTS: NORMAL LEFT VENTRICULAR EJECTION FRACTION 55-60%. MILD MITRAL, MILD TRICUSPID REGURGITATION, MILD PULMONIC INSUFFIENCY, MILD AORTIC I NSUFFIENCY. QUESTIONABLE RIGHT ATRIAL MASS. LOCALIZED POSTERIOR EFFUSION. Recent Cytology from Pleural effusion: Diagnosis: No malignant cells seen. predominantly blood identified. Physical Exam: GENERAL: The patient is a well-developed, well-nourished, in no apparent distress. Alert and oriented x3. VITAL SIGNS: Reviewed HEENT: Neck supple LUNGS: Clear anteriorly. Currently on 4 L per nasal cannula. Patient reports improvement HEART: Regular rate and rhythm, no appreciable gallops, rubs, murmurs or extra heart sounds ABDOMEN: Soft, nontender, and nondistended. Positive bowel sounds. No hepatosplenomegaly was noted. EXTREMITIES: Without any cyanosis, clubbing, rash, lesions or peripheral edema. No peripheral edema noted. NEUROLOGIC: The patient is oriented to person, place and time. Strength and sensation are grossly intact. Face is symmetric. SKIN: Normal color, turgor and temperature. No ulcerations or rashes noted.. No edema to the lower extremities. Impression: Dyspnea, Hypoxia secondary to bilateral pneumonia with recent positive Covid test, repeat test negative x2 Chronic Diastolic CHF with recent ECHO showing EF of 55/60% Chronic loculated posterior pericardial effusion Pulmonary Fibrosis Acute renal insufficiency Hypertension CT scan showing remnant of of pleural effusion on the left side, minimal remnant pneumothorax and enlarged mediastinal lymphadenopathy with recent hospitalization for left pleural effusion status post chest tube placement and removal Chronic atrial fibrillation on chronic anticoagulation therapy Rheumatoid arthritis Anemia chronic disease Plan: Dyspnea, Hypoxia secondary to bilateral pneumonia with recent positive Covid test, repeat test negative x2: Patient appears stable. Patient recently positive as an outpatient for Covid. Repeat test yesterday shows negative Covid. This was retested as false negative was suspected. Second Covid test was negative. Continue to discuss with pulmonology. Will change IV Solu-Medrol to prednisone. Lasix was held yesterday. Patient remains on 4 L per nasal cannula. Continue vitamin supplementation. Spoke with cardiology. No intervention needed for pericardial effusion. This is going to be arranged as an outpatient. IV antibiotic therapy adjusted to doxycycline as recommended by pulmonology. Will discuss with cardiology, pulmonology and nephrology. Will reassess later today. Consider discharge as early as today with home oxygen. Patient is unvaccinated. Chronic Diastolic CHF with recent ECHO showing EF of 55/60%: Recent echocardiogram shows EF of 55 to 60%. Restart Lasix today. Renal insufficiency improved. Continue 1500 cc/day fluid restriction. Cardiology consulted for further recommendation. Chronic loculated posterior pericardial effusion: Patient was to have outpatient transesophageal echocardiogram to evaluate this past Friday. Unfortunately he tested positive for Covid prior to the procedure. Retest Covid test x2 - at this time. Spoke with cardiology. Patient will have outpatient pericardial effusion. Etiology of effusion unknown. May be autoimmune related. Pulmonary Fibrosis: Continue to monitor closely. Pulmonology consulted. Acute renal insufficiency: Renal function improved. Lasix was held yesterday. Restart Lasix today. Continue 1500 cc/day fluid restriction. Continue discussed with nephrology. Hypertension: Continue carvedilol 3.125 mg 1 pill twice daily. Parameters in place to hold if blood pressure systolic less than 110. CT scan showing remnant of of pleural effusion on the left side, minimal remnant pneumothorax and enlarged mediastinal lymphadenopathy with recent hospitalization for left pleural effusion status post chest tube placement and removal: Patient recently hospitalized with large left pleural effusion. Patient had chest tube placement at that time. This was removed. Remnant findings noted. Mediastinal lymphadenopathy likely reactive. Continue to monitor chest x-ray. Continue oxygen. Cytology showed no evidence of malignant cells. Etiology of effusion unknown. Likely autoimmune. Will discuss with pulmonology. No significant effusion noted at this time. Chronic atrial fibrillation on anticoagulation therapy: Continue with Xarelto 20 mg daily and carvedilol 3.125 mg twice daily. Rheumatoid arthritis: Patient currently on Humira. Will hold medication while hospitalized. Continue with tramadol as needed for pain. Anemia of chronic disease: Overall stable. Maintain hemoglobin above 7.5. We will recheck hemoglobin later today along with iron and B12 studies. Code Status: Full Code DVT prophylaxis: Xarelto Advanced Care Planning-30 minutes: Home at discharge likely with home oxygen. Time Spent Managing Pts Care (In Minutes): 55
[2021-03-03 06:09] LABS: Absolute Lymphocytes (CBC) 0.9 K/uL (0.7-4.9); Hematocrit 24.9 % (39.6-49.0); Lymphocytes % 8.8 % (15.3-44.8); MPV 7.7 fL (7.6-11.3); RBC Red Blood Cell Count 2.91 M/uL (4.33-5.43)
[2021-03-03 06:33] LABS: Albumin 1.8 g/dL (3.4-5.0); Bilirubin Total 0.6 mg/dL (0.2-1.0); Ferritin 551.3 ng/mL (26-388); Magnesium 3.1 mg/dL (1.8-2.4); Phosphorus 4.2 mg/dL (2.5-4.9); Potassium 4.2 mmol/L (3.5-5.1); Protein, Total 6.8 g/dL (6.4-8.2); Uric Acid 6.9 mg/dL (3.5-7.2)
[2021-03-03] MEDS: carvediloL 3.125 MG TAB PO SCH ×2 (06:48→17:02)
[2021-03-03] MEDS: PANTOPRAZOLE 40MG TABLET PO SCH (06:48)
[2021-03-03] MEDS ORDERED: ALBUMIN HUMAN 25% 200 ML IV SCH (08:00)
[2021-03-03 08:20] LABS: Anisocytosis 1+; Blood Morphology Comment NOTED (NOT SEEN); Platelet Estimate ADEQ; Polychromasia 1+; White Blood Cell Scan OK (OK)
[2021-03-03] MEDS: LACTOSE-REDUCED FOOD 330 ML LIQUID PO SCH ×3 (09:00→21:00)
[2021-03-03] MEDS ORDERED: FUROSEMIDE 40 MG TABLET PO SCH (09:00)
[2021-03-03] MEDS: DOXYCYCLINE 100 MG CAP PO SCH ×2 (09:48→22:10)
[2021-03-03] MEDS: VITAMIN D 1000 UNIT TAB PO SCH (09:48)
[2021-03-03] MEDS: THIAMINE HCL 100 MG TABLET PO SCH (09:49)
[2021-03-03] MEDS: FOLIC ACID 1 MG TABLET PO SCH (09:50)
[2021-03-03] MEDS: predniSONE 20 MG TAB PO SCH ×2 (09:50→22:09)
[2021-03-03] MEDS: ARFORMOTEROL TARTRATE 15 MCG/2 ML VIAL.NEB NEB SCH ×2 (10:03→19:55)
--- NOTE | 2021-03-03 10:13 | P.CNS ---
Date of Consult: 03/03/21 Primary Care Provider: Dr. Coffman; Cardiology-Dr. Escobedo; Pulmonary-Dr. Brewster Chief Complaint: SOB History of Present Illness: Patient is 71 years of age admitted with worsening dyspnea groundglass changes hypoxemia denies any fever chills chest pain has some lower extremity edema doing better since admission initially tested positive for COVID now is negative x2 Allergies Iodinated Contrast Media [Iodinated Contrast Media - IV Dye] Allergy (Verified 01/12/21 16:05) swelling , whelts aspirin [From Percodan] Adverse Reaction (Verified 01/12/21 16:05) hallucinations oxycodone [From Percodan] Adverse Reaction (Verified 01/12/21 16:05) hallucinations Home Medications: Vit A/Vit C/Vit E/Zinc/Copper [Icaps Areds Formula Dr Tablet] 1 each PO BID 04/18/16 Rivaroxaban [Xarelto] 20 mg PO DAILY AT SUPPER 30 Days #30 tablet 01/04/21 Amiodarone HCl [Cordarone*] 1 tab PO BID 02/15/21 Carvedilol [Coreg] 2 tab PO BID 02/15/21 Famotidine [Pepcid] 20 mg PO DAILY 02/15/21 Furosemide [Lasix*] 40 mg PO BID 02/15/21 Hydrocodone 5/APAP 325 [[place] 5/325*] 1 tab PO Q6HP PRN #30 tab 02/19/21 - Past Medical/Surgical History Diabetic: No -: Rheumatoid arthritis -: Pulmonary fibrosis -: Atrial fibrillation on chronic anticoagulation therapy -: Chronic systolic CHF with EF of 25% -: Hypertension -: Colon cancer resection -: Knee surgery -: Shoulder surgery -: Tonsillectomy -: Cardioversion December 2020 Psychosocial/ Personal History: Patient lives at home. - Family History Mother Medical History: Heart disease Brother Medical History: Heart disease - Social History Alcohol use: No CD- Drugs: No Caffeine use: No Place of Residence: Home Review of Systems 10-point ROS is otherwise unremarkable General: Weakness Respiratory: Shortness of Breath Cardiovascular: Edema Physical Examination Temp Pulse Resp BP Pulse Ox 97.8 F 67 16 98/65 96 03/03/21 08:41 03/03/21 08:41 03/03/21 08:41 03/03/21 08:41 03/03/21 08:41 General: Alert, In no apparent distress, Oriented x3 Respiratory: Crackles/rales, Expiratory wheezes Cardiovascular: Edema (2+) Gastrointestinal: Normal bowel sounds, Soft and benign Laboratory Data (last 24 hrs) 03/02/21 10:10: PT 34.5 H, INR 2.97 03/02/21 10:10: WBC 10.60 D, Hgb 8.7 L, Hct 26.7 L, Plt Count 402 03/02/21 10:10: Sodium 136, Potassium 4.2, BUN 29 H, Creatinine 1.56 H, Glucose 148 H, Magnesium 3.0 H D, Total Bilirubin 0.7, AST 33, ALT 23, Alkaline Phosphatase 139 H - Problems (1) Respiratory failure Current Visit: Yes Status: Acute Plan: Patient admitted with hypoxemia shortness of breath he has some groundglass changes right worse than left bilateral pleural effusion pericardial effusion scheduled to have a DACIA was canceled because of a positive test presumed false positive patient is anticoagulated renal failure is improving presumed all prerenal reduced dose of Lasix discontinue p.o. doxycycline low-dose prednisone possible side effect of Humira his left ventricular function was normal possible underlying diastolic dysfunction patient may have a loculated effusion on the left side Qualifiers: Chronicity: acute on chronic
--- NOTE | 2021-03-03 11:54 | RAD REPORT ---
EXAM DESCRIPTION: RAD - Chest Single View - 03/03/2021 5:42 am CLINICAL HISTORY: follow up COVID/CHF Chest pain. COMPARISON: Chest Single View dated 03/02/2021; Chest Single View dated 02/19/2021; Chest Single View dated 02/18/2021; Chest Single View dated 02/18/2021 FINDINGS: Portable technique limits examination quality. Extensive bilateral pulmonary opacities are again seen, mildly progressive involving the right lung. The heart is normal in size. No displaced fractures. IMPRESSION: Mild worsening in right lung aeration is seen since 03/02/2021.
[2021-03-03 12:54] LABS: Hematocrit 25.9 % (39.6-49.0)
--- NOTE | 2021-03-03 13:27 | CON ---
Date of Consultation: 03/02/2021 Reason For Consultation: Shortness of breath and the presence of COVID. History Of Present Illness: Mr. Bell is a 71-year-old white male. He is a patient of mine in [facility]. He has a history of congestive heart failure, pulmonary fibrosis, rheumatoid arthritis, at rial fibrillation, asbestosis, came in with breathing difficulty, and hypoxia at home with a PO2 of 7 0. Denied any chest pain. He was found to be COVID positive 3 days ago when he was being scheduled for a transesophageal echocardiogram by Dr. Gonzalez. He has a possible atrial clot and a pericardial effusion as well. Denied any chest pain or syncope. Denied any fever or chills. Past Medical History: As stated above. Allergies: HE IS ALLERGIC TO IODINE, ASPIRIN, OXYCODONE, AND COQ10. Review of Systems: Negative. Social History: Negative. Family History: Negative. Medications: At home include amiodarone, carvedilol, Xarelto, Lasix, Pepcid. Physical Examination: General: When I saw him, he was very stable, not short of breath. O2 saturation 98% on 4 L on nasal cannula. He was afebrile. He was in sinus rhythm. HEENT: Negative. Neck: Supple with no bruit. Chest: Revealed decreased breath sounds bilaterally. Cardiac: Revealed a sinus rhythm. No murmurs, gallops, or rubs. Abdomen: Benign. Extremities: Revealed no clubbing, cyanosis, or edema. Diagnostic Data: Creatinine was 1.56. Hemoglobin was 8.7. His BNP was 3055. Troponin was negative . Procalcitonin was 0.06, slightly elevated. His chest x-ray showed possible pneumonia and left-royal ed pleural effusion. CT scan of the chest revealed again possible pneumonia in the right upper lobe, possible alveolar edema or volume overload. Impression And Plan: Shortness of breath secondary to combination of COVID pneumonia, chronic systol ic congestive heart failure, pleural effusion. The patient is on the right medication. Dr. Brewster was seeing the patient and Nephrology is seeing the patient and I agree with their assessment and pl an. The patient should be on the schedule in the near future to have an echocardiogram that is trans esophageal echo to rule out right atrial thrombus, and low ejection fraction and pericardial effusion that we have seen recently before to schedule because of his COVID. We will continue the present re odilon for now. I will discuss the case further with Dr. Ray. The patient can probably go home in 24 hours. He will see me in the office in the near future. The patient may be a candidate for Entr esto if his creatinine stayed stable. MARGARET/JOEL Voice ID: [id number] Report ID: [id number]
--- NOTE | 2021-03-03 13:49 | EKG ---
Test Date: 2021-03-02 Test Time: 09:36:31 Timber Supervisor: TP MEASUREMENT RESULTS: Intervals: Rate: 83 MA: 184 QRSD: 102 QT: 396 QTc: 465 [place]: P: 113 MA: 184 QRS: 225 T: 181 INTERPRETIVE STATEMENTS: Suspect arm lead reversal, interpretation assumes no reversal Normal sinus rhythm Right superior axis deviation Possible Anterior infarct, age undetermined Abnormal ECG Compared to ECG 01/15/2021 07:40:33 Right superior axis now present Myocardial infarct finding now present T-wave abnormality no longer present Electronically Signed On 03-03-21 13:47:41 CONTINUOUS P[employer]LING [employer] P[employer] HELPER by Michael Escobedo
--- NOTE | 2021-03-03 14:42 | RAD REPORT ---
EXAM DESCRIPTION: RAD - Chest Lateral Decubitus - 03/03/2021 2:31 pm CLINICAL HISTORY: Pleural effusion COMPARISON: Chest Single View dated 03/03/2021; Thorax Wo Con dated 03/02/2021 FINDINGS: Bilateral decubitus views were performed. Small amount of pleural fluid is noted layering bilaterally, slightly greater on the right. . IMPRESSION: Small volume of pleural fluid, slightly greater on the right.
[2021-03-03] MEDS: RIVAROXABAN 20 MG TABLET PO SCH (16:38)
--- NOTE | 2021-03-03 18:27 | PN ---
Date of Progress Note: 03/03/2021 Subjective: The patient was seen and examined at bedside. He is doing okay. Shortness of breath is stable at this time. Objective: Vital Signs: Showing blood pressure in the 100s range. General: He appears in no acute distress. Lungs: Diminished breath sounds at left base. Abdomen: Soft and nontender. Heart: Auscultation of the heart revealed regular rate and rhythm. Extremities: Showed no evidence of edema. Laboratory Data: At this time are showing hemoglobin of 8.1, hematocrit of 25.9. BMP results are sh owing creatinine of 1.3 and stable electrolytes and T saturation of 8.6%. Current Medications: Have been reviewed in detail. Impression: 1.Acute on chronic renal insufficiency with underlying cardiorenal syndrome. The patient is current ly on Lasix 40 mg daily, which possibly should be increased to 40 mg b.i.d. based on his volume statu s. 2.Pericardial effusion, possibly from rheumatoid arthritis. The patient is to follow up with Rheuma tology regarding that. 3.Shortness of breath secondary to bilateral pneumonia with possibly congestive heart failure exacer bation also. Continue on gentle diuresis with p.o. Lasix and monitor closely. 4.Pulmonary fibrosis, stable. 5.Pleural effusion, history of pneumothorax, currently improving. Plan: Overall, the patient is doing okay at this time. Volume status is very labile. Continue gent le diuresis with guidance from Cardiology. Follow up with Dermatology regarding the pericardial effu vicki. The patient was advised to check daily weights and monitor his weights closely and adjust his Lasix based on his weight. Blood pressures are very soft. Coreg dose has been decreased to 3.125 b. i.d. and continue amiodarone for atrial fibrillation and monitor closely. Plan was discussed with the patient's family in detail and also all questions were answered . VV/MODL Voice ID: [id number] Report ID: [id number]
[2021-03-04 03:39] VITALS: O2SAT 95
--- NOTE | 2021-03-04 05:43 | P.DS ---
Admission Date: 03/02/21 Discharge Date: 03/04/21 Primary Care Provider: Dr. Coffman; Cardiology-Dr. Escobedo; Pulmonary-Dr. Brewster Disposition: TRANSFER TO [facility] Discharge Condition: GOOD Reason for Admission: SOB Consultations: Pulmonary-Dr. Brewster Cardiology-Dr. Escobedo Nephrology-Dr. Meyers Procedures: COVID: Recent positive test. Negative test in hospital with repeat negative. Patient unvaccinated Chest x-ray: COMPARISON: Portable February 19 TECHNIQUE: AP portable chest image was obtained 03/02/2021 9:48 am . FINDINGS: Left-sided pleural effusion and parenchymal opacification are not substantially different from February 19 imaging. The no left-sided pneumothorax seen. Anterior remnant pneumothorax can't be present an occult on a portable examination. Trachea remains in the midline. No large right-sided pleural effusion identifiable. There is new airspace opacification throughout most of the right lung field. There is relative sparing of the apex. Cardiac silhouette is similar to prior imaging. No upper lobe vascular engorgement seen. No right-sided pneumothorax. Left-sided rib fractures are not clearly different positioning from prior imaging. IMPRESSION: New airspace opacification scattered throughout the right lung field without matching finding in the left lung field. Given the positive COVID test, an atypical presentation of COVID-19 pneumonia would be possible. A non COVID infectious alveolitis would also be possible. Atypical presentation of failure/ volume overload also a possibility. Left-sided pleural effusion and parenchymal opacification not clearly different from February 19 imaging. No measurable left-side pneumothorax seen though small anterior pneumothoraces can be occult on portable imaging. CT scan: COMPARISON: Thorax Wo Con dated 02/17/2021; Thorax Wo Con dated 02/15/2021; Thorax Wo Con dated 04/25/2020 TECHNIQUE: Axial 5 mm thick images of the chest were obtained without IV contrast. All CT scans are performed using dose optimization technique as appropriate and may include automated exposure control or mA/KV adjustment according to patient size. FINDINGS: A small to moderate right-sided pleural effusion is present not substantially different from the February 17 examination. Patient does have ground-glass opacification throughout much of the right upper and right middle lobe with less prominent ground-glass opacities in the anterior portion and superior portion of the right lower lobe. Small amount of atelectasis is present posterior gutter on the right. The ground-glass opacities extend from hilum to the periphery of the right hemithorax. Air bronchograms are seen. No similar ground-glass opacification pattern seen on the left. The patient does have remnant circumferential pleural fluid slightly less in volume than seen on the February 17 CT study. There is a trace remnant of pneumothorax at the left base. No pleural based mass. Several small mediastinal lymph nodes are present slightly larger than February 17. No gross aortic or pulmonary artery finding suspected. Assessment is limited in the absence of IV contrast. No cardiac chamber enlargement seen. The 2 anterior and posterior loculated pericardial effusions are still present. Maximum thickness anteriorly is 4 cm with the posterior maximum thickness 2.9 cm. No change of significance in positioning of the left-sided rib fractures. No chest wall mass or abnormal axillary lymphadenopathy. IMPRESSION: Prominent ground-glass airspace opacities have developed throughout most of the right upper lobe and right middle lobe with less prominent ground- glass opacities in the right lower lobe. No similar finding in the left hemithorax. The unilateral central to peripheral ground-glass opacification pattern is not classic for COVID-19 pneumonia though that would still be a consideration. Unilateral pattern is not classic presentation of failure/volume overload. An infectious pneumonitis or alveolar edema from volume overload or failure both possible. Large loculated pericardial effusions are not clearly different from February 17 imaging. Rind of remnant pleural effusion on the left is similar to the prior study. There is only minimal remnant pneumothorax seen in the left base. Enlarged mediastinal lymph nodes compared February 17 probably reactive. Recent echocardiogram: MEASUREMENTS (cm) DIASTOLIC (NORMALS) SYSTOLIC (NORMALS) IVSd 0.8 (0.6-1.2) LA Diam 3.8 (1.9-4.0) LVEF 60% LVIDd 2.8 (3.5-5.7) LVIDs 2.0 (2.0-3.5) %FS 30% LVPWd 0.9 (0.6-1.2) Ao Diam (2.0-3.7) 2 DIMENSIONAL ASSESSMENT: RIGHT ATRIUM: QUESTIONABLE MASS IN THE RIGHT ATRIUM LEFT ATRIUM: NORAML RIGHT VENTRICLE: NORMAL LEFT VENTRICLE: NORMAL TRICUSPID VALVE: MILD TRICUSPID REGURGTITATION MITRAL VALVE: MILD MITRAL REGURGITATION PULMONIC VALVE: MILD PULMONIC INSUFFIENCY AORTIC VALVE: MILD AORTIC INSUFFIENCY PERICARDIAL EFFUSION: LOCALISED POSTERIOR EFFUSION AORTIC ROOT: NORMAL LEFT VENTRICULAR WALL MOTION: NORMAL DOPPLER/COLOR FLOW: SEE BELOW COMMENTS: NORMAL LEFT VENTRICULAR EJECTION FRACTION 55-60%. MILD MITRAL, MILD TRICUSPID REGURGITATION, MILD PULMONIC INSUFFIENCY, MILD AORTIC INSUFFIENCY. QUESTIONABLE RIGHT ATRIAL MASS. LOCALIZED POSTERIOR EFFUSION. Recent Cytology from Pleural effusion: Diagnosis: No malignant cells seen. predominantly blood identified. Follow up CXR 03/04/2021: COMPARISON: March 03, 2021 FINDINGS: Mild worsening in the right and mild improvement in the left pulmonary opacities. Heart remains enlarged IMPRESSION: Mild worsening in the right and mild improvement in left pulmonary opacities which could represent pneumonia or pulmonary edema Medical problem list: Dyspnea, Hypoxia secondary to bilateral pneumonia with recent positive Covid test, repeat test negative x2 complicated with acute on chronic diastolic CHF, Chronic loculated posterior pericardial effusion, and persistent bilateral pleural effusions with recent hospitalization for large left pleural effusion requiring chest tube with removal Pulmonary Fibrosis Acute renal insufficiency Hypertension CT scan showing remnant of pleural effusion on the left side, minimal remnant pneumothorax and enlarged mediastinal lymphadenopathy with recent hospitalization for left pleural effusion status post chest tube placement and removal Chronic atrial fibrillation on chronic anticoagulation therapy Rheumatoid arthritis Anemia chronic disease Brief History of Present Illness: 71-year-old male presented to the emergency room with increasing shortness of breath and hypoxia. Patient recently tested positive for Covid. He was asymptomatic but over the past 3 days he has been having increasing cough, congestion and shortness of breath. Patient admitted for treatment. Hospital Course: Plan: Dyspnea, Hypoxia secondary to bilateral pneumonia with recent positive Covid test, repeat test negative x2 complicated with acute on chronic diastolic CHF, Chronic loculated posterior pericardial effusion, and persistent bilateral pleural effusions with recent hospitalization for large left pleural effusion requiring chest tube with removal: Still with shortness of breath and requiring oxygen. Lasix changed to IV 20 mg BID this am. CXRs and CT scan reviewed with pulmonary and cardiology. Patient was to have outpatient pericardiocentesis but cardiology recommends CV surgery evaluation and treatment. Both recommend transfer to higher level center to further evaluate the effusions. This maybe autoimmune related versus other. May require VATS procedure and CV surgery to evaluate and treat chronic loculated pericardial effusion. Continue with oral steroid, oral doxcycline. Maintain sats above 93%. Await transfer approval. Pulmonary Fibrosis: Continue to monitor closely. Pulmonology consulted. Acute renal insufficiency: Renal function improved. Continue with IV Lasix 20 mg BID. Continue 1500 cc/day fluid restriction. Continue discussed with nephrology. Hypertension: Coreg has been decreased. Continue carvedilol 3.125 mg 1 pill twice daily. Parameters in place to hold if blood pressure systolic less than 110. CT scan showing remnant of of pleural effusion on the left side, minimal remnant pneumothorax and enlarged mediastinal lymphadenopathy with recent hospitalization for left pleural effusion status post chest tube placement and removal: Patient recently hospitalized with large left pleural effusion. Patient had chest tube placement at that time. This was removed. Remnant findings noted. Still with SOB. Continue with above recommendations. Chronic atrial fibrillation on anticoagulation therapy: Cased discussed with Cardiology. Will decrease Amiodarone to 200 mg daily instead of BID. Continue with Xarelto 20 mg daily and carvedilol 3.125 mg twice daily. Rheumatoid arthritis: Patient currently on Humira. Will hold medication while hospitalized. Continue with tramadol as needed for pain. Anemia of chronic disease: Overall stable. Maintain hemoglobin above 7.5. We will recheck hemoglobin later today along with iron and B12 studies. Code Status: Full Code DVT prophylaxis: Xarelto Advanced Care Planning-30 minutes: Transfer to higher level center Vital Signs/Physical Exam: Temp Pulse Resp BP Pulse Ox 97.3 F 70 18 102/67 90 L 03/04/21 04:00 03/04/21 04:00 03/04/21 04:00 03/04/21 04:00 03/04/21 04:00 General: Alert, In no apparent distress, Oriented x3, Cooperative HEENT: Atraumatic Neck: Supple Respiratory: Other (Patient on 2 and half liters per nasal cannula) Cardiovascular: Normal pulses, Regular rate/rhythm Gastrointestinal: Normal bowel sounds, No tenderness, No masses, No rebound, No guarding Integumentary: Other (Minimal pitting edema to the lower extremities) Neurological: Normal speech, Normal strength at 5/5 x4 extr, Normal tone, Normal affect Laboratory Data at Discharge: WBC 10.40 K/uL (4.3-10.9) 03/03/21 05:53 Hgb 8.1 g/dL (13.6-17.9) L 03/03/21 12:37 Hct 25.9 % (39.6-49.0) L 03/03/21 12:37 Plt Count 324 K/uL (152-406) 03/03/21 05:53 PT 34.5 SECONDS (9.5-12.5) H 03/02/21 10:10 INR 2.97 03/02/21 10:10 Sodium 137 mmol/L (136-145) 03/03/21 05:53 Potassium 4.2 mmol/L (3.5-5.1) 03/03/21 05:53 BUN 30 mg/dL (7-18) H 03/03/21 05:53 Creatinine 1.30 mg/dL (0.55-1.3) 03/03/21 05:53 Glucose 153 mg/dL (74-106) H 03/03/21 05:53 Uric Acid 6.9 mg/dL (3.5-7.2) 03/03/21 05:53 Phosphorus 4.2 mg/dL (2.5-4.9) 03/03/21 05:53 Magnesium 3.1 mg/dL (1.8-2.4) H 03/03/21 05:53 Total Bilirubin 0.6 mg/dL (0.2-1.0) 03/03/21 05:53 AST 26 U/L (15-37) 03/03/21 05:53 ALT 20 U/L (12-78) 03/03/21 05:53 Alkaline Phosphatase 122 U/L (45-117) H 03/03/21 05:53 Home Medications: Rivaroxaban [Xarelto] 20 mg PO DAILY AT SUPPER 30 Days #30 tablet 01/04/21 Amiodarone HCl [Cordarone*] 1 tab PO BID 02/15/21 Carvedilol [Coreg] 2 tab PO BID 02/15/21 Famotidine [Pepcid] 20 mg PO DAILY 02/15/21 Furosemide [Lasix*] 40 mg PO BID 02/15/21 Diet: AHA Activity: Fall precautions Followup: Pino Coffman MD [Primary Care Provider] - Time spent managing pt's care (in minutes): 55
[2021-03-04 06:19] LABS: Absolute Lymphocytes (CBC) 1.1 K/uL (0.7-4.9); Hematocrit 26.4 % (39.6-49.0); Lymphocytes % 5.2 % (15.3-44.8); MPV 7.9 fL (7.6-11.3); RBC Red Blood Cell Count 3.05 M/uL (4.33-5.43)
[2021-03-04] MEDS ORDERED: FUROSEMIDE 20 MG/ 2ML VIAL IV SCH (06:27)
[2021-03-04 06:41] LABS: Albumin 2.2 g/dL (3.4-5.0); Bilirubin Total 0.6 mg/dL (0.2-1.0); C-Reactive Protein 73.7 mg/L (<3.00); Ferritin 687.3 ng/mL (26-388); Magnesium 3.2 mg/dL (1.8-2.4); Potassium 4.6 mmol/L (3.5-5.1); Protein, Total 7.4 g/dL (6.4-8.2)
[2021-03-04] MEDS: PANTOPRAZOLE 40MG TABLET PO SCH (06:48)
[2021-03-04] MEDS: carvediloL 3.125 MG TAB PO SCH (06:48)
--- NOTE | 2021-03-04 08:13 | RAD REPORT ---
EXAM DESCRIPTION: [place] Single View03/04/2021 6:30 am CLINICAL HISTORY: Shortness of breath COMPARISON: March 03, 2021 FINDINGS: Mild worsening in the right and mild improvement in the left pulmonary opacities. Heart re tarun enlarged IMPRESSION: Mild worsening in the right and mild improvement in left pulmonary opacities which could represent pneumonia or pulmonary edema
[2021-03-04] MEDS: VITAMIN D 1000 UNIT TAB PO SCH (08:35)
[2021-03-04] MEDS: THIAMINE HCL 100 MG TABLET PO SCH (08:36)
[2021-03-04] MEDS: LACTOSE-REDUCED FOOD 330 ML LIQUID PO SCH ×2 (08:36→13:30)
[2021-03-04] MEDS: predniSONE 20 MG TAB PO SCH (08:36)
[2021-03-04] MEDS: FOLIC ACID 1 MG TABLET PO SCH (08:36)
[2021-03-04] MEDS: DOXYCYCLINE 100 MG CAP PO SCH (08:36)
[2021-03-04] MEDS ORDERED: FUROSEMIDE 40 MG TABLET PO SCH (09:00)
[2021-03-04 10:49] LABS: Anisocytosis SLIGHT; Blood Morphology Comment NOTED (NOT SEEN); Hypochromasia 1+; Platelet Estimate ADEQ
--- NOTE | 2021-03-04 10:51 | P.PN ---
Subjective Date of Service: 03/04/21 Primary Care Provider: Dr. Coffman; Cardiology-Dr. Escobedo; Pulmonary-Dr. Brewster Chief Complaint: Pleural and pericardial effusions No change still very short of chest x-ray no significant change Review of Systems General: Weakness Respiratory: Shortness of Breath Physical Examination - Vital Signs Temperature: 97.8 F Blood Pressure: 114/70 Pulse: 79 Respirations: 18 Pulse Ox (%): 97 - Physical Exam General: Oriented x3 Respiratory: Diminished Cardiovascular: Normal S1 S2, Edema (Worse on the left side) Assessment & Plan - Problems (Diagnosis) (1) Respiratory failure Current Visit: Yes Status: Acute Plan: Patient continues to remain very short of breath CT scan does show suspected left-sided trapped lung volume loss loculated pericardial effusion so has a right-sided effusion some groundglass interstitial changes recommend transfer him to thoracic surgery still continues to remain very hypoxic he is weak renal function is improved White count is elevated continue with steroids doxycycline sat is 95% on 2-1/2 L nasal cannula oxygen may be all from his rheumatoid or Humira may need decortication of his pericardium and his left pleural space Qualifiers: Chronicity: acute on chronic
--- NOTE | 2021-03-04 11:15 | P.PN ---
Subjective Date of Service: 03/04/21 Primary Care Provider: Dr. Coffman; Cardiology-Dr. Escobedo; Pulmonary-Dr. Brewster Chief Complaint: SOB Subjective: Other (Patient with some SOB this am. Currently on 2.5 L/m. Edema to the lower ext noted.) Physical Examination - Vital Signs Temperature: 97.8 F Blood Pressure: 114/70 Pulse: 79 Respirations: 18 Pulse Ox (%): 97 Assessment & Plan Discharge Plan: Transfer Plan to discharge in: 24 Hours Physician Review Additional Text: COVID: Recent positive test. Negative test in hospital with repeat negative. Patient unvaccinated Chest x-ray: COMPARISON: Portable February 19 TECHNIQUE: AP portable chest image was obtained 03/02/2021 9:48 am . FINDINGS: Left-sided pleural effusion and parenchymal opacification are not substantially different from February 19 imaging. The no left-sided pneumothorax seen. Anterior remnant pneumothorax can't be present an occult on a portable examination. Trachea remains in the midline. No large right-sided pleural effusion identifiable. There is new airspace opacification throughout most of the right lung field. There is relative sparing of the apex. Cardiac silhouette is similar to prior imaging. No upper lobe vascular engorgement seen. No right-sided pneumothorax. Left-sided rib fractures are not clearly different positioning from prior imaging. IMPRESSION: New airspace opacification scattered throughout the right lung field without matching finding in the left lung field. Given the positive COVID test, an atypical presentation of COVID-19 pneumonia would be possible. A non COVID infectious alveolitis would also be possible. Atypical presentation of failure/ volume overload also a possibility. Left-sided pleural effusion and parenchymal opacification not clearly different from February 19 imaging. No measurable left-side pneumothorax seen though small anterior pneumothoraces can be occult on portable imaging. CT scan: COMPARISON: Thorax Wo Con dated 02/17/2021; Thorax Wo Con dated 02/15/2021; Thorax Wo Con dated 04/25/2020 TECHNIQUE: Axial 5 mm thick images of the chest were obtained without IV contrast. All CT scans are performed using dose optimization technique as appropriate and may include automated exposure control or mA/KV adjustment according to patient size. FINDINGS: A small to moderate right-sided pleural effusion is present not substantially different from the February 17 examination. Patient does have ground-glass opacification throughout much of the right upper and right middle lobe with less prominent ground-glass opacities in the anterior portion and superior portion of the right lower lobe. Small amount of atelectasis is present posterior gutter on the right. The ground-glass opacities extend from hilum to the periphery of the right hemithorax. Air bronchograms are seen. No similar ground-glass opacification pattern seen on the left. The patient does have remnant circumferential pleural fluid slightly less in volume than seen on the February 17 CT study. There is a trace remnant of pneumothorax at the left base. No pleural based mass. Several small mediastinal lymph nodes are present slightly larger than February 17. No gross aortic or pulmonary artery finding suspected. Assessment is limited in the absence of IV contrast. No cardiac chamber enlargement seen. The 2 anterior and posterior loculated pericardial effusions are still present. Maximum thickness anteriorly is 4 cm with the posterior maximum thickness 2.9 cm. No change of significance in positioning of the left-sided rib fractures. No chest wall mass or abnormal axillary lymphadenopathy. IMPRESSION: Prominent ground-glass airspace opacities have developed throughout most of the right upper lobe and right middle lobe with less prominent ground- glass opacities in the right lower lobe. No similar finding in the left hemithorax. The unilateral central to peripheral ground-glass opacification pattern is not classic for COVID-19 pneumonia though that would still be a consideration. Unilateral pattern is not classic presentation of failure/volume overload. An infectious pneumonitis or alveolar edema from volume overload or failure both possible. Large loculated pericardial effusions are not clearly different from February 17 imaging. Rind of remnant pleural effusion on the left is similar to the prior study. There is only minimal remnant pneumothorax seen in the left base. Enlarged mediastinal lymph nodes compared February 17 probably reactive. Recent echocardiogram: MEASUREMENTS (cm) DIASTOLIC (NORMALS) SYSTOLIC (NORMALS) IVSd 0.8 (0.6-1.2) LA Diam 3.8 (1.9-4.0) LVEF 60% LVIDd 2.8 (3.5-5.7) LVIDs 2.0 (2.0-3.5) %FS 30% LVPWd 0.9 (0.6-1.2) Ao Diam (2.0-3.7) 2 DIMENSIONAL ASSESSMENT: RIGHT ATRIUM: QUESTIONABLE MASS IN THE RIGHT ATRIUM LEFT ATRIUM: NORAML RIGHT VENTRICLE: NORMAL LEFT VENTRICLE: NORMAL TRICUSPID VALVE: MILD TRICUSPID REGURGTITATION MITRAL VALVE: MILD MITRAL REGURGITATION PULMONIC VALVE: MILD PULMONIC INSUFFIENCY AORTIC VALVE: MILD AORTIC INSUFFIENCY PERICARDIAL EFFUSION: LOCALISED POSTERIOR EFFUSION AORTIC ROOT: NORMAL LEFT VENTRICULAR WALL MOTION: NORMAL DOPPLER/COLOR FLOW: SEE BELOW COMMENTS: NORMAL LEFT VENTRICULAR EJECTION FRACTION 55-60%. MILD MITRAL, MILD TRICUSPID REGURGITATION, MILD PULMONIC INSUFFIENCY, MILD AORTIC INSUFFIENCY. QUESTIONABLE RIGHT ATRIAL MASS. LOCALIZED POSTERIOR EFFUSION. Recent Cytology from Pleural effusion: Diagnosis: No malignant cells seen. predominantly blood identified. Follow up CXR 03/04/2021: COMPARISON: March 03, 2021 FINDINGS: Mild worsening in the right and mild improvement in the left pulmonary opacities. Heart remains enlarged IMPRESSION: Mild worsening in the right and mild improvement in left pulmonary opacities which could represent pneumonia or pulmonary edema Physical Exam: GENERAL: The patient is a well-developed, well-nourished, in no apparent distress. Alert and oriented x3. Still with SOB. VITAL SIGNS: Reviewed HEENT: Neck supple LUNGS: decreased to the bases. Currently on 2.5 L/m. HEART: Regular rate and rhythm, no appreciable gallops, rubs, murmurs or extra heart sounds ABDOMEN: Soft, nontender, and nondistended. Positive bowel sounds. No hepatosplenomegaly was noted. EXTREMITIES: mild pitting edema to the lowe ext. NEUROLOGIC: The patient is oriented to person, place and time. Strength and sensation are grossly intact. Face is symmetric. SKIN: Normal color, turgor and temperature. No ulcerations or rashes noted. Impression: Dyspnea, Hypoxia secondary to bilateral pneumonia with recent positive Covid test, repeat test negative x2 complicated with acute on chronic diastolic CHF, Chronic loculated posterior pericardial effusion, and persistent bilateral pleural effusions with recent hospitalization for large left pleural effusion requiring chest tube with removal Pulmonary Fibrosis Acute renal insufficiency Hypertension CT scan showing remnant of pleural effusion on the left side, minimal remnant pneumothorax and enlarged mediastinal lymphadenopathy with recent hospitalization for left pleural effusion status post chest tube placement and removal Chronic atrial fibrillation on chronic anticoagulation therapy Rheumatoid arthritis Anemia chronic disease Plan: Dyspnea, Hypoxia secondary to bilateral pneumonia with recent positive Covid test, repeat test negative x2 complicated with acute on chronic diastolic CHF, Chronic loculated posterior pericardial effusion, and persistent bilateral pleural effusions with recent hospitalization for large left pleural effusion requiring chest tube with removal: Still with shortness of breath and requiring oxygen. Lasix changed to IV 20 mg BID this am. CXRs and CT scan reviewed with pulmonary and cardiology. Patient was to have outpatient pericardiocentesis but cardiology recommends CV surgery evaluation and treatment. Both recommend transfer to higher level center to further evaluate the effusions. This maybe autoimmune related versus other. May require VATS procedure and CV surgery to evaluate and treat chronic loculated pericardial effusion. Continue with oral steroid, oral doxcycline. Maintain sats above 93%. Await transfer approval. Pulmonary Fibrosis: Continue to monitor closely. Pulmonology consulted. Acute renal insufficiency: Renal function improved. Continue with IV Lasix 20 mg BID. Continue 1500 cc/day fluid restriction. Continue discussed with nephrology. Hypertension: Coreg has been decreased. Continue carvedilol 3.125 mg 1 pill twi ce daily. Parameters in place to hold if blood pressure systolic less than 110. CT scan showing remnant of of pleural effusion on the left side, minimal remnant pneumothorax and enlarged mediastinal lymphadenopathy with recent hospitalization for left pleural effusion status post chest tube placement and removal: Patient recently hospitalized with large left pleural effusion. Patient had chest tube placement at that time. This was removed. Remnant findings noted. Still with SOB. Continue with above recommendations. Chronic atrial fibrillation on anticoagulation therapy: Cased discussed with Cardiology. Will decrease Amiodarone to 200 mg daily instead of BID. Continue with Xarelto 20 mg daily and carvedilol 3.125 mg twice daily. Rheumatoid arthritis: Patient currently on Humira. Will hold medication while hospitalized. Continue with tramadol as needed for pain. Anemia of chronic disease: Overall stable. Maintain hemoglobin above 7.5. We will recheck hemoglobin later today along with iron and B12 studies. Code Status: Full Code DVT prophylaxis: Xarelto Advanced Care Planning-30 minutes: Transfer to higher level center Time Spent Managing Pts Care (In Minutes): 55
[2021-03-04] MEDS ORDERED: AMIODARONE HCL 200 MG TAB PO SCH (12:00)
[2021-03-04 12:54] VITALS: BP 107/68; TEMP 97
--- NOTE | 2021-03-04 13:40 | P.DS ---
Admission Date: 03/02/21 Discharge Date: 03/04/21 Primary Care Provider: Dr. Coffman; Cardiology-Dr. Escobedo; Pulmonary-Dr. Brewster Disposition: TRANSFER TO [facility] Discharge Condition: GOOD Reason for Admission: SOB Consultations: Pulmonary-Dr. Brewster Cardiology-Dr. Escobedo Procedures: COVID: Recent positive test. Negative test in hospital with repeat negative. Patient unvaccinated Chest x-ray: COMPARISON: Portable February 19 TECHNIQUE: AP portable chest image was obtained 03/02/2021 9:48 am . FINDINGS: Left-sided pleural effusion and parenchymal opacification are not substantially different from February 19 imaging. The no left-sided pneumothorax seen. Anterior remnant pneumothorax can't be present an occult on a portable examination. Trachea remains in the midline. No large right-sided pleural effusion identifiable. There is new airspace opacification throughout most of the right lung field. There is relative sparing of the apex. Cardiac silhouette is similar to prior imaging. No upper lobe vascular engorgement seen. No right-sided pneumothorax. Left-sided rib fractures are not clearly different positioning from prior imaging. IMPRESSION: New airspace opacification scattered throughout the right lung field without matching finding in the left lung field. Given the positive COVID test, an atypical presentation of COVID-19 pneumonia would be possible. A non COVID infectious alveolitis would also be possible. Atypical presentation of failure/ volume overload also a possibility. Left-sided pleural effusion and parenchymal opacification not clearly different from February 19 imaging. No measurable left-side pneumothorax seen though small anterior pneumothoraces can be occult on portable imaging. CT scan: COMPARISON: Thorax Wo Con dated 02/17/2021; Thorax Wo Con dated 02/15/2021; Thorax Wo Con dated 04/25/2020 TECHNIQUE: Axial 5 mm thick images of the chest were obtained without IV contrast. All CT scans are performed using dose optimization technique as appropriate and may include automated exposure control or mA/KV adjustment according to patient size. FINDINGS: A small to moderate right-sided pleural effusion is present not substantially different from the February 17 examination. Patient does have ground-glass opacification throughout much of the right upper and right middle lobe with less prominent ground-glass opacities in the anterior portion and superior portion of the right lower lobe. Small amount of atelectasis is present posterior gutter on the right. The ground-glass opacities extend from hilum to the periphery of the right hemithorax. Air bronchograms are seen. No similar ground-glass opacification pattern seen on the left. The patient does have remnant circumferential pleural fluid slightly less in volume than seen on the February 17 CT study. There is a trace remnant of pneumothorax at the left base. No pleural based mass. Several small mediastinal lymph nodes are present slightly larger than February 17. No gross aortic or pulmonary artery finding suspected. Assessment is limited in the absence of IV contrast. No cardiac chamber enlargement seen. The 2 anterior and posterior loculated pericardial effusions are still present. Maximum thickness anteriorly is 4 cm with the posterior maximum thickness 2.9 cm. No change of significance in positioning of the left-sided rib fractures. No chest wall mass or abnormal axillary lymphadenopathy. IMPRESSION: Prominent ground-glass airspace opacities have developed throughout most of the right upper lobe and right middle lobe with less prominent ground- glass opacities in the right lower lobe. No similar finding in the left hemithorax. The unilateral central to peripheral ground-glass opacification pattern is not classic for COVID-19 pneumonia though that would still be a consideration. Unilateral pattern is not classic presentation of failure/volume overload. An infectious pneumonitis or alveolar edema from volume overload or failure both possible. Large loculated pericardial effusions are not clearly different from February 17 imaging. Rind of remnant pleural effusion on the left is similar to the prior study. There is only minimal remnant pneumothorax seen in the left base. Enlarged mediastinal lymph nodes compared February 17 probably reactive. Recent echocardiogram: MEASUREMENTS (cm) DIASTOLIC (NORMALS) SYSTOLIC (NORMALS) IVSd 0.8 (0.6-1.2) LA Diam 3.8 (1.9-4.0) LVEF 60% LVIDd 2.8 (3.5-5.7) LVIDs 2.0 (2.0-3.5) %FS 30% LVPWd 0.9 (0.6-1.2) Ao Diam (2.0-3.7) 2 DIMENSIONAL ASSESSMENT: RIGHT ATRIUM: QUESTIONABLE MASS IN THE RIGHT ATRIUM LEFT ATRIUM: NORAML RIGHT VENTRICLE: NORMAL LEFT VENTRICLE: NORMAL TRICUSPID VALVE: MILD TRICUSPID REGURGTITATION MITRAL VALVE: MILD MITRAL REGURGITATION PULMONIC VALVE: MILD PULMONIC INSUFFIENCY AORTIC VALVE: MILD AORTIC INSUFFIENCY PERICARDIAL EFFUSION: LOCALISED POSTERIOR EFFUSION AORTIC ROOT: NORMAL LEFT VENTRICULAR WALL MOTION: NORMAL DOPPLER/COLOR FLOW: SEE BELOW COMMENTS: NORMAL LEFT VENTRICULAR EJECTION FRACTION 55-60%. MILD MITRAL, MILD TRICUSPID REGURGITATION, MILD PULMONIC INSUFFIENCY, MILD AORTIC INSUFFIENCY. QUESTIONABLE RIGHT ATRIAL MASS. LOCALIZED POSTERIOR EFFUSION. Recent Cytology from Pleural effusion: Diagnosis: No malignant cells seen. predominantly blood identified. Follow up CXR 03/04/2021: COMPARISON: March 03, 2021 FINDINGS: Mild worsening in the right and mild improvement in the left pulmonary opacities. Heart remains enlarged IMPRESSION: Mild worsening in the right and mild improvement in left pulmonary opacities which could represent pneumonia or pulmonary edema Medical problem list: Dyspnea, Hypoxia secondary to bilateral pneumonia with recent positive Covid test, repeat test negative x2 complicated with acute on chronic diastolic CHF, Chronic loculated posterior pericardial effusion, and persistent bilateral pleural effusions with recent hospitalization for large left pleural effusion requiring chest tube with removal Pulmonary Fibrosis Acute renal insufficiency Hypertension CT scan showing remnant of pleural effusion on the left side, minimal remnant pneumothorax and enlarged mediastinal lymphadenopathy with recent hospitalization for left pleural effusion status post chest tube placement and removal Chronic atrial fibrillation on chronic anticoagulation therapy Rheumatoid arthritis Anemia chronic disease GERD Brief History of Present Illness: 71-year-old male with history of rheumatoid arthritis on Humira, pulmonary fibrosis, chronic atrial fibrillation on chronic anticoagulation therapy, hypertension, and diastolic CHF. Patient with hospitalization in December for atrial fibrillation with RVR. Patient also with hospitalization late January for large left pleural effusion status post chest tube with removal. Patient with chronic bilateral pleural effusion and loculated moderate posterior pericardial effusion. Patient was to have pericardiocentesis earlier this week. Patient tested positive prior to the procedure. This was postponed. Patient continued to have shortness of breath with hypoxia. Patient found to be hypoxic in the ER. Patient was admitted for further evaluation and treatment. Hospital Course: Patient presented with dyspnea, hypoxia secondary to bilateral pneumonia with recent positive COVID test and noted repeat COVID test x2 in the ER upon admission. This was further complicated with acute on chronic diastolic CHF, chronic loculated posterior pericardial effusion and persistent bilateral pleural effusions. Patient with history of December hospitalization for atrial fibrillation with RVR. Patient also had recent hospitalization late January for large left pleural effusion with chest tube placement and removal. At that time he was found to have the pericardial effusion. Pericardiocentesis was to be done as an outpatient. This was delayed due to positive COVID test. He was asymptomatic at the time. He then came with shortness of breath and hypoxia. Repeat tests x2 have been negative. Patient was started on antibiotic therapy and steroids. Patient remains short of breath. Patient was seen by cardiology and pulmonology. Due to the complexity of his medical problem list, pulmonology and cardiology felt patient needed to be transferred for CV surgery evaluation. Patient may require VATS procedure and intervention for pericardial effusion. Spoke with CV surgery Dr. Monroe and hospitalist Dr. Rosen at [facility]. Both agree with transfer. Patient will be transferred for further evaluation and treatment. Patient currently stable for transfer. Currently on 2.5 L per nasal cannula. Blood pressure stable. Patient remains on doxycycline 100 mg 1 pill twice daily, prednisone 20 mg 1 pill twice daily, and oxygen. Patient with pulmonary fibrosis. Patient with possible underlying COPD. Currently on Brovana and Atrovent. Currently on 2.5 L per nasal cannula. Overall stable. Patient had acute acute renal insufficiency. Lasix was held upon admission. Nephrology was consulted. Lasix has been restarted. Currently on IV Lasix 20 mg 1 pill twice daily. Patient with hypertension. Patient previously on carvedilol 6.25 mg 1 pill twice daily. This was decreased to 3.25 mg 1 pill twice daily. Blood pressure stable at this time on current dose. Patient with chronic atrial fibrillation on chronic anticoagulation therapy. Case discussed in detail with cardiology. Amiodarone decreased from 200 mg twice daily to 200 mg daily at this time. Patient remains on Xarelto 20 mg daily and carvedilol 3 1.25 mg 1 pill twice daily. Patient with rheumatoid arthritis. Previously on Humira. Humira may be the cause of the bilateral pleural effusions and pericardial effusion. This can be further evaluated in [place]. Patient is seen by rheumatology as an outpatient. Patient with anemia chronic disease. Overall stable. Patient with GERD. Patient currently on Protonix 40 mg daily. Vital Signs/Physical Exam: Temp Pulse Resp BP Pulse Ox 97.0 F 78 22 H 107/68 91 03/04/21 12:00 03/04/21 12:00 03/04/21 12:00 03/04/21 12:00 03/04/21 12:00 General: Alert, In no apparent distress, Oriented x3, Cooperative HEENT: Atraumatic Neck: Supple Respiratory: Other (Currently on 2.5 L per nasal cannula. Decreased at the bases) Cardiovascular: Normal pulses, Regular rate/rhythm Gastrointestinal: Normal bowel sounds, No tenderness, No masses, No rebound, No guarding Musculoskeletal: No erythema, No tenderness, No warmth Integumentary: Other (Edema to the lower extremities improved) Neurological: Normal speech, Normal strength at 5/5 x4 extr, Normal tone, Normal affect Laboratory Data at Discharge: WBC 20.60 K/uL (4.3-10.9) H* D 03/04/21 05:45 Hgb 8.4 g/dL (13.6-17.9) L 03/04/21 05:45 Hct 26.4 % (39.6-49.0) L 03/04/21 05:45 Plt Count 368 K/uL (152-406) 03/04/21 05:45 PT 34.5 SECONDS (9.5-12.5) H 03/02/21 10:10 INR 2.97 03/02/21 10:10 Sodium 138 mmol/L (136-145) 03/04/21 05:45 Potassium 4.6 mmol/L (3.5-5.1) 03/04/21 05:45 BUN 36 mg/dL (7-18) H 03/04/21 05:45 Creatinine 1.23 mg/dL (0.55-1.3) 03/04/21 05:45 Glucose 119 mg/dL (74-106) H 03/04/21 05:45 Uric Acid 6.9 mg/dL (3.5-7.2) 03/03/21 05:53 Phosphorus 4.2 mg/dL (2.5-4.9) 03/03/21 05:53 Magnesium 3.2 mg/dL (1.8-2.4) H 03/04/21 05:45 Total Bilirubin 0.6 mg/dL (0.2-1.0) 03/04/21 05:45 AST 33 U/L (15-37) 03/04/21 05:45 ALT 25 U/L (12-78) 03/04/21 05:45 Alkaline Phosphatase 128 U/L (45-117) H 03/04/21 05:45 Home Medications: Rivaroxaban [Xarelto] 20 mg PO DAILY AT SUPPER 30 Days #30 tablet 01/04/21 Amiodarone HCl [Cordarone*] 1 tab PO BID 02/15/21 Carvedilol [Coreg] 2 tab PO BID 02/15/21 Famotidine [Pepcid] 20 mg PO DAILY 02/15/21 Furosemide [Lasix*] 40 mg PO BID 02/15/21 Physician Discharge Instructions: Patient to be transferred to [facility] for high-level care. Cardiovascular surgery to evaluate. Diet: AHA Activity: Ad lizz Followup: Pino Coffman MD [Primary Care Provider] - Time spent managing pt's care (in minutes): 55
== END 2021-03-04 15:40 | disposition short-term general hospital (02) | DRG 193 ==
LOC: ER 09:17 → ERHOLD 12:36 → 4TH 20:56 → 2ND 03-03 02:06
PROVIDERS: ADMIT Family Medicine; ATTEND Family Medicine
DX: J18.9 Pneumonia, unspecified organism (principal); J96.21 Acute and chronic respiratory failure with hypoxia; I50.33 Acute on chronic diastolic (congestive) heart failure; I48.20 Chronic atrial fibrillation, unspecified; I31.3 Pericardial effusion (noninflammatory); J91.8 Pleural effusion in other conditions classified elsewhere; J93.9 Pneumothorax, unspecified; M06.9 Rheumatoid arthritis, unspecified; I11.0 Hypertensive heart disease with heart failure; J84.10 Pulmonary fibrosis, unspecified; N28.9 Disorder of kidney and ureter, unspecified; R59.0 Localized enlarged lymph nodes; D63.8 Anemia in other chronic diseases classified elsewhere; K21.9 Gastro-esophageal reflux disease without esophagitis; T39.4X5A Adverse effect of antirheumatics, not elsewhere classified, initial encounter; Y92.9 Unspecified place or not applicable; Z79.01 Long term (current) use of anticoagulants; Z20.822 Contact with and (suspected) exposure to COVID-19
CPT/HCPCS: 36415; 71045; 71046; 71250; 80048; 80053; 80076; 81003; 82607; 82728; 82805; 83540; 83735; 83880; 84100; 84145; 84466; 84484; 84550; 85014; 85018; 85025; 85610; 86140; 87040; 93005; 94640; 96365; 96366; 96372; 96375; 99285; J0456; J0692; J1940; J2920; J2930; J7050; J7512; J7605; P9047; U0003

== ENCOUNTER → 2023-02-18 | Emergency (ER) | payer OTHER, BC ==
[~2023-02-18] MED LIST changes: -NA CHLORIDE 0.9% 500 ML ONE; +OSELTAMIVIR 75 MG CAP PO ONE
[2023-02-18 11:30] LABS: Absolute Lymphocytes (CBC) 0.7 K/uL (0.7-4.9); Hematocrit 34.9 % (39.6-49.0); Lymphocytes % 8.9 % (15.3-44.8); MCV 86.1 fL (80-100); MPV 8.2 fL (7.6-11.3); Platelets 210 thou/uL (152-406); RBC Red Blood Cell Count 4.06 M/uL (4.33-5.43)
--- NOTE | 2023-02-18 11:30 | RAD REPORT ---
EXAM DESCRIPTION: CT - Thorax Wo Con - 02/18/2023 10:44 am CLINICAL HISTORY: PE COMPARISON: Thorax Wo Con dated 11/18/2022; Thorax Wo Con dated 03/02/2021; Thorax Wo Con dated 021; Thorax Wo Con dated 02/15/2021 TECHNIQUE: Axial thin cut images of the chest were obtained without IV contrast. Multiplanar reforma ts were generated and reviewed. All CT scans are performed using dose optimization technique as appropriate and may include automated exposure control or mA/KV adjustment according to patient size. FINDINGS: Peripheral predominant reticular opacities most pronounced anteriorly, stable. Mild tracti on bronchiectasis in the right lower lobe, stable Right more than left pleural thickening or trace ef fusions, also stable. No mass or other infiltrate in the lung parenchyma. No pneumothorax. No abnormal mediastinal or hilar masses or lymphadenopathy seen. No significant aortic or pulmonary a rtery findings. Assessment is limited in the absence of IV contrast. Heart is mildly enlarged. Stable loculated pericardial effusion posteriorly measuring up to 2 cm in t hickness. No chest wall mass or abnormal axillary lymphadenopathy. Evaluation of the solid abdominal structures reveals no suspicious findings. Stable anterior wedge co mpression deformity at T7. IMPRESSION: No acute process within the chest. Stable fibrotic peripheral predominant bilateral lung disease. Findings suggestive of NSIP pattern, a nd may be in the setting of connective tissue disease. Stable loculated pericardial effusion posteriorly.
[2023-02-18 11:35] LABS: Protime INR 1.23
[2023-02-18 11:44] LABS: Potassium 3.9 mEq/L (3.5-5.1); Troponin High Sensitivity 28.5 pg/mL (<58.9)
--- NOTE | 2023-02-18 11:54 | RAD REPORT ---
EXAM DESCRIPTION: RADChest Single View02/18/2023 10:54 am CLINICAL HISTORY: SOB COMPARISON: Chest Pa And Lat (2 Views) dated 01/08/2022; Chest Pa And Lat (2 Views) dated 07/31/2021; Chest Pa And Lat (2 Views) dated 04/16/2021; Chest Single View dated 03/04/2021 TECHNIQUE: Portable AP view of the chest. FINDINGS: Peripheral predominant fibrotic changes again seen. Trace bilateral effusions suspected, s table. No new focal airspace opacities. No pneumothorax . The cardiomediastinal contours are unchang ed. IMPRESSION: Stable chronic appearing fibrotic changes. Suspected bilateral trace effusions. No findi ngs to suggest new focal airspace disease.
--- NOTE | 2023-02-18 12:06 | EDPHYS ---
Physician Documentation [facility] Name: Houston Bell Age: 73 yrs Sex: Male : 1950 Arrival Date: 02/18/2023 Time: 09:49 Bed 7 Private MD: ED Physician Rodolfo Ricketts HPI: 02/18 10:34 This 73 yrs old Male presents to ER via Ambulatory with complaints of Cough, ec2 Congestion, Fever. 10:34 Patient arrives today due to concern for cough and cold symptoms ongoing for several ec2 weeks. States that she been having cough and congestion for at least 3 weeks. States what is new today is that he has a fever. Patient also reports chronic shortness of breath. Reports history of pulmonary fibrosis. Patient reports no chest pain, no leg swelling. He states that his fever was approximately 101 Fahrenheit, had taken some DayQuil prior to arrival. Historical: - Allergies: 10:17 Aspirin; ll1 10:17 Iodinated Contrast Media - IV Dye; ll1 10:17 Iodine (swelling and itching); ll1 10:17 Oxycodone; ll1 10:17 Percodan; ll1 - PMHx: 10:17 asbestos; Atrial fibrillation; Congestive heart failure; pulmonary fibrosis; RA; ll1 Coronary atherosclerosis; - Immunization history:: Adult Immunizations up to date. - Social history:: Smoking status: Patient denies any tobacco usage or history of. ROS: 10:34 Constitutional: as per hpi ec2 Exam: 10:34 Constitutional: GEN: NAD Head: atraumatic Eyes: EOMI Ears: External ears are ec2 normal. CV: regular rate, no lower extremity edema LUNGS: no respiratory distress, no wheezes, no rales, no rhonchi ABD: non-distended SKIN: no evidence of rashes MSK: no evidence of trauma NEURO: moves all extremities equally Vital Signs: 10:17 BP 115 / 76; Pulse 76; Resp 18; Temp 99.3; Pulse Ox 92% ; ll1 11:05 BP 95 / 70; Pulse 114; Resp 24; Pulse Ox 94% on R/A; ld1 12:23 BP 103 / 72; Pulse 108; Resp 20; Temp 99.1(O); Pulse Ox 94% on R/A; ld1 10:17 O2 sat 91-95% during triage ll1 MDM: 10:14 Patient medically screened. ec2 10:34 Data reviewed: vital signs. ED course: Patient arrives today for evaluation of URI ec2 signs symptoms as well as fever. Examination remarkable for well-appearing nontoxic individual is otherwise in no acute distress with reassuring cardiopulmonary examination. Will obtain lab work, chest x-ray, CT scan as well as viral swabs. Currently considering processes such as pleural effusion, pneumonia, viral infection.. 10:40 ED course: Patient with allergy to contrast, further discussion with patient, patient ec2 is prescribed Eliquis, supposed start this soon, will defer contrasted study, will proceed with CT scan of the chest to evaluate for significant effusions.. 11:04 ED course: EKG independently reviewed and interpreted by me, shows atrial fibrillation, ec2 rate of 98, no acute ST segment elevations, intervals are otherwise nonconcerning.. 11:44 ED course: CBC without leukocytosis, slight anemia appreciated. Patient is flu be ec2 positive. Coagulation profile is unremarkable, CT scan of the thorax shows no acute process, does show loculated pericardial effusion that is unchanged. Given the patient's pulmonary fibrosis, I will start the patient on Tamiflu. . 11:46 ED course: Metabolic profile is reassuring, BNP elevated at 11,000, troponin within ec2 normal ranges. . 12:04 ED course: On reassessment patient is well-appearing in no acute distress, I offered ec2 the patient inpatient hospitalization given the patient underlying atrial fibrillation and pulmonary fibrosis however the patient states that he overall feels very good and feels that he can manage outpatient. I will prescribe Tamiflu and have him follow-up with primary care doctor with strict return precautions. . 13:10 ED course: Of note patient is COVID-positive, called the patient to update him ec2 regarding this, will proceed with the current plan. I instructed him to follow-up with primary care doctor and return if he changes mind for admission.. 02/18 10:28 Order name: Basic Metabolic Panel; Complete Time: 11:45 ec2 02/18 10:28 Order name: CBC with Diff; Complete Time: 11:43 ec2 02/18 10:28 Order name: NT PRO-BNP; Complete Time: 11:45 ec2 02/18 10:28 Order name: Troponin HS; Complete Time: 11:45 ec2 02/18 10:28 Order name: COVID-19 SARS RT PCR ec2 02/18 10:28 Order name: Influenza Screen (a \T\ B); Complete Time: 11:43 ec2 02/18 11:04 Order name: PT-INR; Complete Time: 11:43 ec2 02/18 11:04 Order name: Ptt, Activated; Complete Time: 11:43 ec2 02/18 10:28 Order name: XRAY Chest (1 view); Complete Time: 12:07 ec2 02/18 10:46 Order name: Thorax Wo Con; Complete Time: 11:43 EDMS 02/18 10:28 Order name: EKG; Complete Time: 10:29 ec2 02/18 10:28 Order name: Cardiac monitoring; Complete Time: 11:04 ec2 02/18 10:28 Order name: EKG - Nurse/Tech; Complete Time: 11:04 ec2 02/18 10:28 Order name: IV Saline Lock; Complete Time: 11:04 ec2 02/18 10:28 Order name: Labs collected and sent; Complete Time: 11:04 ec2 02/18 10:28 Order name: O2 Per Protocol; Complete Time: 11:05 ec2 02/18 10:28 Order name: O2 Sat Monitoring; Complete Time: 11:05 ec2 Administered Medications: 12:00 Drug: Oseltamivir PO 75 mg PO once Route: PO; ld1 Disposition Summary: 02/18/23 12:05 Discharge Ordered Notes: Location: Home ec2 Condition: Stable ec2 Diagnosis - Influenza due to unidentified influenza virus with other manifestations ec2 - Influenza B ec2 Followup: ec2 - With: Private Physician - When: - Reason: Re-evaluation by your physician Discharge Instructions: - Discharge Summary Sheet ec2 - Influenza, Adult ec2 Forms: - Medication Reconciliation Form ec2 - Thank You Letter ec2 - Antibiotic Education ec2 - Prescription Opioid Use ec2 - Patient Portal Instructions ec2 - Leadership Thank You Letter ec2 Prescriptions: - Tessalon Perles 100 mg Oral Capsule - take 1 capsule ORAL route every 8 hours As needed; 15 capsule; Refills: 0, ec2 Product Selection Permitted - Tamiflu 75 mg Oral capsule - take 1 tablet ORAL route every 12 hours for 5 days; 10 tablet; Refills: 0, ec2 Product Selection Permitted Signatures: Dispatcher [employer] Raheel Basurto RN RN ll1 Carolina Roman RN RN ld1 Rodolfo Ricketts MD MD ec2 Corrections: (The following items were deleted from the chart) 10:41 10:40 ED course: Patient with allergy to contrast,. ec2 ec2 10:46 10:29 Chest For PE Angio+CT.RAD.BRZ ordered. EDMS BOWERSMS
--- NOTE | 2023-02-18 12:06 | ER ---
Nurse's Notes [facility] Name: Houston Bell Age: 73 yrs Sex: Male : 1950 Arrival Date: 02/18/2023 Time: 09:49 Bed 7 Private MD: Diagnosis: Influenza due to unidentified influenza virus with other manifestations;Influenza B Presentation: 02/18 10:17 Chief complaint: Patient states: Cough, congestion for 3 weeks. Fever 101.9 this AM. ll1 Coronavirus screen: Vaccine status: Patient reports receiving the 2nd dose of the covid vaccine. Client denies travel out of the [place] in the last 14 days. congestion, cough unrelated to allergies, fatigue, fever. Ebola Screen: Patient denies travel to an Ebola-affected area in the 21 days before illness onset. Initial Sepsis Screen: Does the patient meet any 2 criteria? No. Patient's initial sepsis screen is negative. Does the patient have a suspected source of infection? Yes: Productive cough/pneumonia. Risk Assessment: Do you want to hurt yourself or someone else? Patient reports no desire to harm self or others. Onset of symptoms was January 28, 2023. 10:17 Method Of Arrival: Ambulatory ll1 10:17 Acuity: JESSICA 2 ll1 Triage Assessment: 10:19 General: Appears uncomfortable, Behavior is calm, cooperative, appropriate for age. ll1 Pain: Denies pain. Respiratory: Reports shortness of breath cough that is. Historical: - Allergies: 10:17 Aspirin; ll1 10:17 Iodinated Contrast Media - IV Dye; ll1 10:17 Iodine (swelling and itching); ll1 10:17 Oxycodone; ll1 10:17 Percodan; ll1 - PMHx: 10:17 asbestos; Atrial fibrillation; Congestive heart failure; pulmonary fibrosis; RA; ll1 Coronary atherosclerosis; - Immunization history:: Adult Immunizations up to date. - Social history:: Smoking status: Patient denies any tobacco usage or history of. Screenin:05 [facility] ED Fall Risk Assessment (Adult) History of falling in the last 3 months, ld1 including since admission No falls in past 3 months (0 pts). Abuse screen: Denies threats or abuse. Denies injuries from another. Nutritional screening: No deficits noted. Tuberculosis screening: No symptoms or risk factors identified. Assessment: 11:05 General: Appears in no apparent distress. comfortable, Behavior is calm, cooperative, ld1 appropriate for age. Pain: Denies pain. Neuro: Level of Consciousness is awake, alert, obeys commands, Oriented to person, place, time, situation. Cardiovascular: Capillary refill < 3 seconds Patient's skin is warm and dry. Rhythm is atrial fibrillation. Respiratory: Airway is patent Respiratory effort is even, labored. GI: Abdomen is flat, non-distended. : No signs and/or symptoms were reported regarding the genitourinary system. EENT: No signs and/or symptoms were reported regarding the EENT system. Derm: Skin temperature is warm. Musculoskeletal: No signs and/or symptoms reported regarding the musculoskeletal system. 12:23 Reassessment: Patient appears in no apparent distress at this time. No changes from ld1 previously documented assessment. Patient and/or family updated on plan of care and expected duration. Pain level reassessed. Patient is alert, oriented x 3, equal unlabored respirations, skin warm/dry/pink. Vital Signs: 10:17 BP 115 / 76; Pulse 76; Resp 18; Temp 99.3; Pulse Ox 92% ; ll1 11:05 BP 95 / 70; Pulse 114; Resp 24; Pulse Ox 94% on R/A; ld1 12:23 BP 103 / 72; Pulse 108; Resp 20; Temp 99.1(O); Pulse Ox 94% on R/A; ld1 10:17 O2 sat 91-95% during triage ll1 ED Course: 09:52 Patient arrived in ED. mr 10:14 Rodolfo Ricketts MD is Attending Physician. ec2 10:19 Triage completed. ll1 10:19 Arm band placed on. ll1 10:46 Thorax Wo Con In Process Unspecified. EDMS 10:56 XRAY Chest (1 view) In Process Unspecified. EDMS 11:04 Carolina Roman, KIRSTIE is Primary Nurse. ld1 11:04 Influenza Screen (a \T\ B) Sent. ld1 11:04 COVID-19 SARS RT PCR Sent. ld1 11:05 Patient has correct armband on for positive identification. Placed in gown. Bed in low ld1 position. Call light in reach. Side rails up X2. panel monitor on. Pulse ox on. NIBP on. Door closed. Noise minimized. Warm blanket given. 11:05 No provider procedures requiring assistance completed. ld1 11:11 Inserted saline lock: 22 gauge in right antecubital area, using aseptic technique. tl4 Blood collected. 12:24 IV discontinued, intact, bleeding controlled, No redness/swelling at site. ld1 13:08 Notified ED physician of a critical lab result(s). covid +. iw Administered Medications: 12:00 Drug: Oseltamivir PO 75 mg PO once Route: PO; ld1 Medication: 12:24 VIS not applicable for this client. ld1 Outcome: 12:05 Discharge ordered by . ec2 12:23 Discharged to home ambulatory, with family, ld1 12:23 Condition: stable 12:23 Discharge instructions given to patient, family, Instructed on discharge instructions, follow up and referral plans. medication usage, Demonstrated understanding of instructions, follow-up care, medications, Prescriptions given X 1, 12:24 Patient left the ED. ld1 Signatures: Dispatcher [employer] EDPR Linda Marsh, Reg Reg mr Christine Munoz, KIRSTIE THACKER iw Raheel Pastrana RN RN ll1 Carolina Roman RN RN ld1 Rodolfo Ricketts MD MD ec2 Logdahl, Tutu tl4 Corrections: (The following items were deleted from the chart) 10:21 10:17 BP 115 / 76; Pulse 76bpm; Resp 18bpm; Pulse Ox 92%; Temp 99.3F; ll1 ll1
[2023-02-18 13:33] VITALS: BP 103/72; TEMP 99.1; O2SAT 94
--- NOTE | 2023-02-20 13:27 | EKG ---
Test Date: 2023-02-18 Test Time: 10:58:41 Quality Assurance Practice Manager: Cecelia ACUÑA MEASUREMENT RESULTS: Intervals: Rate: 98 [place]: QRSD: 96 QT: 348 QTc: 444 [place]: P: TX: QRS: -71 T: 47 INTERPRETIVE STATEMENTS: Atrial fibrillation Left anterior fascicular block Anterior infarct, age undetermined Abnormal ECG Compared to ECG 03/02/2021 09:36:31 Left anterior fascicular block now present Sinus rhythm no longer present Right superior axis no longer present Myocardial infarct finding still present Electronically Signed On 02-20-23 13:22:37 SLAG MIXER by Deuce Gonzalez
== END ==
LOC: ER 09:49
DX: U07.1 COVID-19 (principal); J11.1 Influenza due to unidentified influenza virus with other respiratory manifestations; I50.9 Heart failure, unspecified; Z88.5 Allergy status to narcotic agent; Z88.6 Allergy status to analgesic agent; Z91.041 Radiographic dye allergy status; Z91.048 Other nonmedicinal substance allergy status
CPT/HCPCS: 36415; 71045; 71250; 80048; 83880; 84484; 85025; 85610; 85730; 87635; 87804; 93005; 99284

== ENCOUNTER 2023-05-14 11:57 | Inpatient (IN) | payer OTHER, BC ==
[2023-05-14] MEDS ORDERED: CEFTRIAXONE 1000 MG/VIAL ONE (12:20)
[2023-05-14] MEDS ORDERED: ALBUTEROL 2.5 MG/3 ML NEB SOL ONE (12:20)
[2023-05-14] MEDS ORDERED: NA CHLORIDE 0.9% 250 ML ONE (12:21)
[2023-05-14] MEDS ORDERED: IPRATROPIUM BROM 0.5MG/2.5ML ONE (12:21)
[2023-05-14] MEDS ORDERED: AZITHROMYCIN 500 MG INJ IVPB ONE (12:21)
[2023-05-14] MEDS ORDERED: NA CHLORIDE 0.9% 500 ML ONE (12:21)
--- NOTE | 2023-05-14 12:30 | RAD REPORT ---
EXAM DESCRIPTION: RADChest Single View05/14/2023 12:21 pm CLINICAL HISTORY: CHEST PAIN COMPARISON: Chest Single View dated 02/18/2023; Chest Pa And Lat (2 Views) dated 01/08/2022; Chest P a And Lat (2 Views) dated 07/31/2021; Chest Pa And Lat (2 Views) dated 04/16/2021hest Single View dated 02/18/2023; Chest Pa And Lat (2 Views) dated 01/08/2022; Chest Pa And Lat (2 Views) dated 07/31/2021; Chest Pa And Lat (2 Views) dated 04/16/2021 TECHNIQUE: Portable AP view of the chest. FINDINGS: Developing right mid lung peripheral airspace opacity, inferiorly demarcated by the thicke magdiel minor fissure, therefore may be in the upper lobe. Other peripheral predominant patchy interstiti al opacities are stable. Blunting of the costophrenic angles is stable, may reflect stable effusions or pleural thickening. No pneumothorax or other sizable effusion. The cardiomediastinal contours are unchanged, with sequelae of median sternotomy. IMPRESSION: Developing right midlung peripheral airspace opacity, concerning for atelectasis versus pneumonia.
[2023-05-14 13:08] LABS: PT Prothrombin Time 17.5 SECONDS (9.5-12.5); Protime INR 1.61
[2023-05-14 13:19] LABS: Albumin 2.4 g/dL (3.4-5.0); Albumin/Globulin Ratio 0.6 (1.1-1.8); Anion Gap 9.6 mEq/L (5.0-15.0); Bilirubin Direct 0.3 mg/dL (0-0.2); Bilirubin Indirect, Calculated 0.4 mg/dL (0.2-0.8); Bilirubin Total 0.7 mg/dL (0.2-1.0); Globulin 3.9 g/dL (2.3-3.5); Magnesium 2.1 mg/dL (1.6-2.4); Potassium 3.6 mEq/L (3.5-5.1); Protein, Total 6.3 g/dL (6.4-8.2)
[2023-05-14 13:21] LABS: Troponin High Sensitivity 80.6 pg/mL (<58.9)
[2023-05-14 13:24] LABS: Absolute Eosinophils 0.2 K/uL (0-0.5); Absolute Lymphocytes (CBC) 0.5 K/uL (0.7-4.9); Absolute Monocytes 0.3 K/uL (0.1-1.3); Absolute Neutrophil 3.9 K/uL (1.8-8.0); Basophils % 0.5 % (0-1.3); Eosinophils % 3.7 % (0-4.4); Hematocrit 26.2 % (39.6-49.0); Hemoglobin 8.7 g/dL (13.6-17.9); Lymphocytes % 9.5 % (15.3-44.8); MCH 30.2 pg (27.0-35.0); MCHC 33.1 g/dL (32.0-36.0); MCV 91.2 fL (80-100); MPV 8.4 fL (7.6-11.3); Neutrophils % 80.3 % (41.7-73.7); Nucleated Red Blood Cells % 0.1 % (0-0); Platelets 215 thou/uL (152-406); RBC Red Blood Cell Count 2.87 M/uL (4.33-5.43); Red Cell Distribution Width 24.4 % (12.1-15.2)
--- NOTE | 2023-05-14 13:40 | EDPHYS ---
Physician Documentation [facility] Name: Houston Bell Age: 73 yrs Sex: Male : 1950 Arrival Date: 05/14/2023 Time: 11:57 Bed 7 Private MD: ED Physician Shante Holt HPI: 05/13 13:25 This 73 yrs old Male presents to ER via Ambulatory with complaints of Breathing sp3 Difficulty, Chest Congestion. 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 Patient states that after they got home from the hospital 3 days ago patient was feeling fatigued and developed a fever as well. Patient has gotten worse since then and now has difficulty breathing and worsening cough. He denies chest pain, peripheral edema, headache, known sick contacts, travel history, prolonged immobilization, or any other signs or symptoms on ROS at this time.. Historical: - Allergies: 12:00 Aspirin; ll1 12:00 Iodinated Contrast Media - IV Dye; ll1 12:00 Iodine (swelling and itching); ll1 12:00 Oxycodone; ll1 12:00 Percodan; ll1 - PMHx: 12:00 Atrial fibrillation; asbestos; Congestive heart failure; coronary atherosclerosis; ll1 pulmonary fibrosis; RA; - Immunization history:: Adult Immunizations up to date. - Social history:: Smoking status: Patient denies any tobacco usage or history of. ROS: 13:26 Constitutional: Negative for fever, chills, and weight loss, Eyes: Negative for injury, sp3 pain, redness, and discharge, ENT: Negative for injury, pain, and discharge, Neck: Negative for injury, pain, and swelling, Abdomen/GI: Negative for abdominal pain, nausea, vomiting, diarrhea, and constipation, Back: Negative for injury and pain, MS/Extremity: Negative for injury and deformity, Skin: Negative for injury, rash, and discoloration, Neuro: Negative for headache, weakness, numbness, tingling, and seizure, Psych: Negative for depression, anxiety, suicide ideation, homicidal ideation, and hallucinations, Allergy/Immunology: Negative for hives, rash, and allergies, Endocrine: Negative for neck swelling, polydipsia, polyuria, polyphagia, and marked weight changes, 13:26 All other systems are negative, Exam: 13:26 Constitutional: This is a well developed, well nourished patient who is awake, alert, sp3 and in no acute distress. Head/Face: Normocephalic, atraumatic. Eyes: Pupils equal round and reactive to light, extra-ocular motions intact. Lids and lashes normal. Conjunctiva and sclera are non-icteric and not injected. Cornea within normal limits. Periorbital areas with no swelling, redness, or edema. Neck: Trachea midline, no thyromegaly or masses palpated, and no cervical lymphadenopathy. Supple, full range of motion without nuchal rigidity, or vertebral point tenderness. No Meningismus. Chest/axilla: Normal chest wall appearance and motion. Nontender with no deformity. No lesions are appreciated. Cardiovascular: Regular rate and rhythm with a normal S1 and S2. No gallops, murmurs, or rubs. Normal PMI, no JVD. No pulse deficits. Abdomen/GI: Soft, non-tender, with normal bowel sounds. No distension or tympany. No guarding or rebound. No evidence of tenderness throughout. Back: No spinal tenderness. No costovertebral tenderness. Full range of motion. Skin: Warm, dry with normal turgor. Normal color with no rashes, no lesions, and no evidence of cellulitis. MS/ Extremity: Pulses equal, no cyanosis. Neurovascular intact. Full, normal range of motion. Neuro: Awake and alert, GCS 15, oriented to person, place, time, and situation. Cranial nerves II-XII grossly intact. Motor strength 5/5 in all extremities. Sensory grossly intact. Cerebellar exam normal. Normal gait. Psych: Awake, alert, with orientation to person, place and time. Behavior, mood, and affect are within normal limits. 13:26 ECG was reviewed by the Attending Physician. EKG demonstrates sinus tachycardia at 115 bpm with continued atrial fibrillation versus sinus arrhythmia. Left axis noted and diffuse nonspecific ST's ST changes. 13:27 Respiratory: Rhonchi bilaterally along with severe active cough., sp3 Vital Signs: 12:07 BP 111 / 72; Pulse 123; Resp 26; Pulse Ox 96% on R/A; Height 5 ft. 10 in. ; Pain 2/10; ll1 12:08 Temp 97.8; jg11 12:16 BP 119 / 85; Pulse 120; Pulse Ox 95% ; ll1 13:30 BP 104 / 64; Pulse 106; Resp 23; Pulse Ox 100% ; ll1 14:30 BP 96 / 59; Pulse 121; Resp 24; Pulse Ox 96% ; ll1 15:50 BP 97 / 67; Pulse 115; Resp 18; Pulse Ox 98% ; rs5 12:07 Pain Scale: Adult ll1 MDM: 12:06 Patient medically screened. sp3 13:27 Data reviewed: vital signs, nurses notes, old medical records, lab test result(s), EKG, sp3 radiologic studies. ED course: 73-year-old male with PMH above now with respiratory symptoms. Consider bronchitis versus pneumonia versus other viral process. Chest x-ray demonstrates infiltrate. Antibiotics and nebulizers have been ordered. Patient will be admitted to the hospital. Laboratory values are still pending.. 13:28 ED course: BNP slightly elevated and troponin at 80 presumably secondary to ablation. sp3 Rocephin and Zithromax have been given. Further per inpatient team including coverage for nosocomial infection if they feel necessary.. 05/13 12:06 Order name: Basic Metabolic Panel; Complete Time: 13:28 sp3 05/13 12:06 Order name: CBC with Diff; Complete Time: 14:39 sp3 05/13 12:06 Order name: LFT's; Complete Time: 13:28 sp3 05/13 12:06 Order name: Magnesium; Complete Time: 13:28 sp3 05/13 12:06 Order name: NT PRO-BNP; Complete Time: 13:28 sp3 05/13 12:06 Order name: PT-INR; Complete Time: 13:28 sp3 05/13 12:06 Order name: Troponin HS; Complete Time: 13:28 sp3 05/13 14:37 Order name: CBC Smear Scan; Complete Time: 14:39 EDMS 05/13 14:57 Order name: T4 Free EDMS 05/13 14:57 Order name: Thyroid Stimulating Hormone EDMS 05/13 14:57 Order name: Basic Metabolic Panel EDMS 05/13 14:57 Order name: Basic Metabolic Panel EDMS 05/13 14:57 Order name: Basic Metabolic Panel EDMS 05/13 14:57 Order name: Basic Metabolic Panel EDMS 05/13 14:57 Order name: Basic Metabolic Panel EDMS 05/13 14:57 Order name: Basic Metabolic Panel EDMS 05/13 14:57 Order name: CBC with Automated Diff EDMS 05/13 14:57 Order name: CBC with Automated Diff EDMS 05/13 14:57 Order name: CBC with Automated Diff EDMS 05/13 14:57 Order name: CBC with Automated Diff EDMS 05/13 14:57 Order name: CBC with Automated Diff EDMS 05/13 14:57 Order name: CBC with Automated Diff EDMS 05/13 14:57 Order name: Lipid Profile EDMS 05/13 14:57 Order name: Lipid Profile EDMS 05/13 14:57 Order name: Magnesium EDMS 05/13 14:57 Order name: Magnesium EDMS 05/13 14:57 Order name: Magnesium EDMS 05/13 14:57 Order name: Magnesium EDMS 05/13 14:57 Order name: Magnesium EDMS 05/13 14:57 Order name: Magnesium EDMS 05/13 14:57 Order name: Phosphorus EDMS 05/13 14:57 Order name: Phosphorus EDMS 05/13 14:57 Order name: Phosphorus EDMS 05/13 14:57 Order name: Phosphorus EDMS 05/13 14:57 Order name: Phosphorus EDMS 05/13 14:57 Order name: Phosphorus EDMS 05/13 14:57 Order name: Troponin High Sensitivity EDMS 05/13 14:57 Order name: Troponin High Sensitivity EDMS 05/13 14:57 Order name: Troponin High Sensitivity EDMS 05/13 12:06 Order name: XRAY Chest (1 view); Complete Time: 12:49 sp3 05/13 12:06 Order name: EKG; Complete Time: 12:06 sp3 05/13 12:06 Order name: Cardiac monitoring; Complete Time: 12:50 sp3 05/13 12:06 Order name: EKG - Nurse/Tech; Complete Time: 12:49 sp3 05/13 12:06 Order name: IV Saline Lock; Complete Time: 12:45 sp3 05/13 12:06 Order name: Labs collected and sent; Complete Time: 12:45 sp3 05/13 12:06 Order name: O2 Per Protocol; Complete Time: 12:45 sp3 05/13 12:06 Order name: O2 Sat Monitoring; Complete Time: 12:45 sp3 Administered Medications: 12:29 Drug: Rocephin IV 1 grams IV at calculated rate once; Given slow IV push per pharmacy rs5 instructions Route: IV; Rate: calculated rate; Site: left antecubital; 12:45 Drug: DuoNeb Nebulize (3:1) (2.5 mg - 0.5 mg) 3 ml Nebulizer once Route: Nebulizer; ll1 12:51 Follow up: Response: No adverse reaction ll1 12:51 Drug: Zithromax IVPB 500 mg IVPB once over 1 hrs; mix in 250 mL NS Route: IVPB; Infused ll1 Over: 1 hrs; Site: right antecubital; 12:51 Drug: NS 0.9% IV 500 ml IV at bolus once Route: IV; Rate: bolus; Site: right ll1 antecubital; Disposition Summary: 05/14/23 13:40 Hospitalization Ordered Notes: Hospitalization Status: Inpatient Admission sp3 Provider: Glenn Goel spFany Location: Telemetry/[facility] (Inpatient) sp3 Condition: Stable sp3 Problem: an acute exacerbation sp3 Symptoms: have worsened sp3 Bed/Room Type: Standard sp3 Room Assignment: 403(05/14/23 15:21) bd Diagnosis - Pneumonia, pulmonary fibrosis sp3 Forms: - Medication Reconciliation Form sp3 - SBAR form sp3 - Leadership Thank You Letter sp3 Signatures: Dispatcher [employer] EDSafia Wilson Lynsay, RN RN ll1 Shante Holt MD MD sp3 True Cameron RN RN rs5 Corrections: (The following items were deleted from the chart) 15: 13:40 sp3 bd
--- NOTE | 2023-05-14 13:40 | ER ---
Nurse's Notes [facility] Name: Houston Bell Age: 73 yrs Sex: Male : 1950 Arrival Date: 05/14/2023 Time: 11:57 Bed 7 Private MD: Diagnosis: Pneumonia, pulmonary fibrosis Presentation: 05/13 12:07 Chief complaint: Patient states: SOB, congestion, chills, fever since Friday after his ll1 ablation for A fib. Coronavirus screen: Client denies travel out of the [place] in the last 14 days. congestion, difficulty breathing, fever, headache, shortness of breath, Client presents with at least one sign or symptom that may indicate coronavirus-19. Standard/surgical mask placed on the client. Ebola Screen: Patient denies travel to an Ebola-affected area in the 21 days before illness onset. Initial Sepsis Screen: Does the patient meet any 2 criteria? RR > 20 per min. HR > 90 bpm. No. Patient's initial sepsis screen is negative. Does the patient have a suspected source of infection? No. Patient's initial sepsis screen is negative. Risk Assessment: Do you want to hurt yourself or someone else? Patient reports no desire to harm self or others. Onset of symptoms was May 09, 2023. 12:07 Method Of Arrival: Ambulatory ll1 12:07 Acuity: JESSICA 2 ll1 Triage Assessment: 12:09 General: Appears uncomfortable, ill, Behavior is calm, cooperative, appropriate for ll1 age. General: Reports chills for fever for feeling ill for fatigue for. Pain: Complains of pain in neck Quality of pain is described as aching. EENT: Reports nasal congestion. Respiratory: Reports shortness of breath cough that is Onset: The symptoms/episode began/occurred Friday, the patient has moderate shortness of breath. GI: Reports no appetite. Historical: - Allergies: 12:00 Aspirin; ll1 12:00 Iodinated Contrast Media - IV Dye; ll1 12:00 Iodine (swelling and itching); ll1 12:00 Oxycodone; ll1 12:00 Percodan; ll1 - PMHx: 12:00 Atrial fibrillation; asbestos; Congestive heart failure; coronary atherosclerosis; ll1 pulmonary fibrosis; RA; - Immunization history:: Adult Immunizations up to date. - Social history:: Smoking status: Patient denies any tobacco usage or history of. Screenin:05 [facility] ED Fall Risk Assessment (Adult) History of falling in the last 3 months, rs5 including since admission No falls in past 3 months (0 pts) Confusion or Disorientation No (0 pts) Intoxicated or Sedated No (0 pts) Impaired Gait No (0 pts) Mobility Assist Device Used No (0 pt) Altered Elimination No (0 pt) Score/Fall Risk Level 0 - 2 = Low Risk Oriented to surroundings, Maintained a safe environment. Abuse screen: Denies threats or abuse. Nutritional screening: No deficits noted. Tuberculosis screening: No symptoms or risk factors identified. Assessment: 12:01 General: Appears in no apparent distress. uncomfortable, Behavior is calm, cooperative. rs5 Pain: Denies pain. Neuro: Level of Consciousness is awake, alert, Oriented to person, place, time, situation. Cardiovascular: Rhythm is sinus tachycardia. Respiratory: Reports shortness of breath Airway is patent Respiratory effort is even, unlabored, Respiratory pattern is regular, symmetrical, GI: Abdomen is flat, non-distended, Abd is soft and non tender X 4 quads. : No signs and/or symptoms were reported regarding the genitourinary system. EENT: No signs and/or symptoms were reported regarding the EENT system. Derm: Skin is intact, Skin is pink, warm \T\ dry. Musculoskeletal: Circulation, motion, and sensation intact. Range of motion: intact in all extremities. 12:46 Reassessment: No changes from previously documented assessment. Patient and/or family ll1 updated on plan of care and expected duration. Pain level reassessed. 13:30 Reassessment: No changes from previously documented assessment. Patient is alert, ll1 oriented x 3, equal unlabored respirations, skin warm/dry/pink. 14:30 Reassessment: ADMIT INITIATED. ll1 14:30 Reassessment: Patient and/or family updated on plan of care and expected duration. Pain rs5 level reassessed. Patient is alert, oriented x 3, equal unlabored respirations, skin warm/dry/pink. Cardiovascular: Rhythm is sinus tachycardia. Respiratory: Respiratory effort is even, unlabored, Respiratory pattern is regular, symmetrical. 15:30 Reassessment: Douglas ticket sheet completed and faxed to fourth floor. rs5 15:50 Reassessment: No changes from previously documented assessment. rs5 Vital Signs: 12:07 BP 111 / 72; Pulse 123; Resp 26; Pulse Ox 96% on R/A; Height 5 ft. 10 in. ; Pain 2/10; ll1 12:08 Temp 97.8; jg11 12:16 BP 119 / 85; Pulse 120; Pulse Ox 95% ; ll1 13:30 BP 104 / 64; Pulse 106; Resp 23; Pulse Ox 100% ; ll1 14:30 BP 96 / 59; Pulse 121; Resp 24; Pulse Ox 96% ; ll1 15:50 BP 97 / 67; Pulse 115; Resp 18; Pulse Ox 98% ; rs5 12:07 Pain Scale: Adult ll1 ED Course: 11:58 Patient arrived in ED. mg5 12:00 Arm band placed on Patient placed in an exam room, on a stretcher. ll1 12:03 Shante Holt MD is Attending Physician. sp3 12:05 Allergy band placed. Placed in gown. Bed in low position. Call light in reach. Side rs5 rails up X2. 12:05 No provider procedures requiring assistance completed. rs5 12:07 True Cameron, RN is Primary Nurse. rs5 12:09 Triage completed. ll1 12:23 XRAY Chest (1 view) In Process Unspecified. EDMS 12:49 Inserted saline lock: 22 gauge in right forearm, using aseptic technique. Blood bp collected. 12:50 Troponin HS Sent. bp 12:50 PT-INR Sent. bp 12:50 NT PRO-BNP Sent. bp 12:50 Magnesium Sent. bp 12:50 LFT's Sent. bp 12:50 CBC with Diff Sent. bp 12:50 Basic Metabolic Panel Sent. bp 13:39 Glenn Goel is Hospitalizing Provider. sp3 15:20 Lights dimmed. Pillow given. Assisted with urinal. Linen changed. jg11 15:58 Patient admitted, IV remains in place. rs5 Administered Medications: 12:29 Drug: Rocephin IV 1 grams IV at calculated rate once; Given slow IV push per pharmacy rs5 instructions Route: IV; Rate: calculated rate; Site: left antecubital; 12:45 Drug: DuoNeb Nebulize (3:1) (2.5 mg - 0.5 mg) 3 ml Nebulizer once Route: Nebulizer; ll1 12:51 Follow up: Response: No adverse reaction ll1 12:51 Drug: Zithromax IVPB 500 mg IVPB once over 1 hrs; mix in 250 mL NS Route: IVPB; Infused ll1 Over: 1 hrs; Site: right antecubital; 12:51 Drug: NS 0.9% IV 500 ml IV at bolus once Route: IV; Rate: bolus; Site: right ll1 antecubital; Medication: 15:50 VIS not applicable for this client. rs5 Outcome: 13:40 Decision to Hospitalize by Provider. sp3 15:58 Admitted to Med/surg accompanied by tech, with chart, rs5 15:58 Condition: stable 15:58 Instructed on the need for admit, Demonstrated understanding of instructions, 15:59 Patient left the ED. rs5 Signatures: Dispatcher [employer] EDMS Familia Polanco RN RN bp Lewis, Lynsay, RN RN ll1 Shante Holt MD MD sp3 True Cameron RN RN rs5 Veronica Loaiza 5 Layo Flores jg11
--- NOTE | 2023-05-14 13:44 | P.HP ---
Certification for Inpatient Patient admitted to: Observation With expected LOS: >2 Midnights Patient will require the following post-hospital care: None Practitioner: I am a practitioner with admitting privileges, knowledge of patient current condition, hospital course, and medical plan of care. Services: Services provided to patient in accordance with Admission requirements found in Title 42 Section 412.3 of the Code of Federal Regulations Patient History Date of Service: 05/14/23 Reason for admission: sepsis 2/2 pneumonia History of Present Illness: Houston Bell is a 73-year-old male with past medical history of pulmonary fibrosis, rheumatoid arthritis, atrial fibrillation on Eliquis, chronic systolic CHF with EF 25%, hypertension who presents to the ED with chief complaint of breathing difficulty and chest congestion. He reports having a cardiac ablation on Friday at [facility] per Dr. Gonzalez's recommendations. Since then he has had difficulty breathing. He presents with atrial fibrillation. He reports having atrial fibrillation for years with an attempt of cardioversion in the past and now status post cardiac ablation. He is on chronic Eliquis. He reports a fever of 101 and took some Tylenol at home. While in the ED he was given Azithromycin, Rocephin, ipratropium, albuterol and tolerated well. Initial vitals : BP 111 / 72, Pulse 12, Resp 26, Pulse Ox 96% on R/A. Laboratory evaluation H&H 8.7/26.2, serum glucose 118, BNP 4003, troponin 80.6 ECG was reviewed by the Attending Physician. EKG demonstrates sinus tachycardia at 115 bpm with continued atrial fibrillation versus sinus arrhythmia. Left axis noted and diffuse nonspecific ST's ST changes Chest x-ray reports "Developing right midlung peripheral airspace opacity, concerning for atelectasis versus pneumonia." Houston will be admitted to hospital service for further evaluation and treatment of sepsis secondary to pneumonia. Allergies Iodinated Contrast Media [Iodinated Contrast Media - IV Dye] Allergy (Verified 01/12/21 16:05) swelling , whelts aspirin [From Percodan] Adverse Reaction (Verified 01/12/21 16:05) hallucinations oxycodone [From Percodan] Adverse Reaction (Verified 01/12/21 16:05) hallucinations Home Medications: Abatacept [Orencia Clickject] 125 mg SQ SEECOM 05/14/23 Acetaminophen [Pain Relief] 650 mg PO TID PRN 05/14/23 Apixaban [Eliquis] 5 mg PO BID 05/14/23 Aspirin [Aspirin EC] 81 mg PO DAILY 05/14/23 Atorvastatin Calcium 20 mg PO BEDTIME 05/14/23 Docusate [Colace Cap] 200 mg PO BEDTIME 05/14/23 Famotidine 20 mg PO DAILY 05/14/23 Folic Acid 1 mg PO DAILY 05/14/23 Furosemide [Lasix] 20 mg PO DAILY 05/14/23 Iron 65 mg PO DAILY 05/14/23 Methotrexate [Methotrexate*] 8 pill PO SEECOM 05/14/23 Metoprolol Tartrate 50 mg PO DAILY 05/14/23 Polyvinyl Alcohol/Povidone [Clear Eyes Natural Tears Drop] 15 ml OP BID 05/14/23 Tamsulosin [Flomax] 0.4 mg PO BEDTIME 05/14/23 predniSONE [Prednisone] 5 mg PO DAILY 05/14/23 - Past Medical/Surgical History Diabetic: No -: Rheumatoid arthritis -: Pulmonary fibrosis -: Atrial fibrillation on chronic anticoagulation therapy -: Chronic systolic CHF with EF of 25% -: Hypertension -: Colon cancer resection -: Knee surgery -: Shoulder surgery -: Tonsillectomy -: Cardioversion December 2020 Psychosocial/ Personal History: Patient lives at home. - Family History Mother -: Heart disease Brother -: Heart disease - Social History Alcohol use: No CD- Drugs: No Caffeine use: No Review of Systems Respiratory: Cough, Shortness of Breath Physical Examination - Physical Exam General: Alert, In no apparent distress, Oriented x3 HEENT: Atraumatic, Normocephalic, PERRLA Neck: Supple, 2+ carotid pulse no bruit Respiratory: Normal air movement, Rhonchi/gurgles Cardiovascular: Normal S1 S2, Irregular heart rate/rhythm (atrial fibrillation) Capillary refill: <2 Seconds Gastrointestinal: Normal bowel sounds, Soft and benign, Non-distended Musculoskeletal: No clubbing, No swelling, No contractures Integumentary: No rashes, Other (bruising to right groin) Neurological: Normal speech, Normal strength at 5/5 x4 extr - Studies Laboratory Data (last 24 hrs) 05/14/23 05/14/23 05/14/23 12:37 12:37 12:37 WBC 4.80 Hgb 8.7 L Hct 26.2 L Plt Count 215 PT 17.5 H INR 1.61 Sodium 139 Potassium 3.6 BUN 17 Creatinine 0.82 Glucose 118 H Magnesium 2.1 Total Bilirubin 0.7 AST 41 H ALT 16 Alkaline Phosphatase 104 Assessment and Plan - Plan Assessment and plan Sepsis secondary to pneumonia in a patient with pulmonary fibrosis Febrile -Chest x-ray reports "Developing right midlung peripheral airspace opacity, concerning for atelectasis versus pneumonia" -Tylenol -Nebulizer treatment -Vancomycin and cefepime -Supplemental oxygen -Incentive spirometer Atrial fibrillation on Eliquis Chronic systolic congestive heart failure with a EF 25% Elevated troponin -Status post cardiac ablation 05/08, troponin 88.6 serial pending, heparin drip -BNP 4003, hold IV fluids -EKG demonstrates sinus tachycardia at 115 bpm with continued atrial fibrillation versus sinus arrhythmia. Left axis noted and diffuse nonspecific ST's ST changes -Presents with tachycardia -Continue home medications when available -Cardiology consulted Chronic anemia -Monitor H&H -Transfuse as needed History of hypertension with hypotension -Presents with hypotension due to sepsis -Midodrine 3 times daily -Hold IV fluids due to congestive heart failure Prolonged QT -QT 456 -Avoid medications that prolong QT Rheumatoid arthritis -Continue home medication when available DVT PPx heparin drip Full code LOS 2 to 3 days Discharge Plan: Home Plan to discharge in: 48 Hours - Advance Directives Does patient have a Living Will: Yes Does patient have a Durable POA for Healthcare: Yes Time Spent Managing Pts Care (In Minutes): 50
[2023-05-14 14:37] LABS: Anisocytosis 3+; Blood Morphology Comment NOTED (NOT SEEN); Platelet Estimate ADEQ; White Blood Cell Scan OK (OK)
[2023-05-14 16:16] LABS: Thyroid Stimulating Hormone 1.27 uIU/mL (0.358-3.740)
[2023-05-14] MEDS ORDERED: ACETAMINOPHEN 500 MG TAB PO PRN (16:51)
[2023-05-14] MEDS: MIDODRINE HCL 5 MG TABLET PO SCH (17:33)
[2023-05-14] MEDS: CEFEPIME 2 GM in NA CHLORIDE 0.9% 100 ML IV SCH (17:34)
[2023-05-14] MEDS: NA CHLORIDE 0.9% 500 ML IV ONE (18:26)
[2023-05-14] MEDS: VANCOMYCIN 1.75 GM in NA CHLORIDE 0.9% 500 ML IVPB ONE (18:27)
[2023-05-14 19:10] LABS: MPV 8.4 fL (7.6-11.3); Platelets 181 thou/uL (152-406)
[2023-05-14 19:16] LABS: PT Prothrombin Time 16.3 SECONDS (9.5-12.5); PTT, Activated Partial Thromb 40.3 SECONDS (24.3-36.9); Protime INR 1.5
[2023-05-14 19:58] VITALS: BMI 22.7
[2023-05-14] MEDS: IPRATROPIUM BROM 0.5MG/2.5ML NEB SCH (19:59)
[2023-05-14] MEDS: HEPARIN/D5W 25,000 UNIT/500 ML BAG IV PRN (20:54)
[2023-05-14] MEDS: DOCUSATE NA 100 MG CAP PO SCH (20:55)
[2023-05-14] MEDS: TAMSULOSIN 0.4 MG SR CAP PO SCH (20:56)
[2023-05-14] MEDS: ATORVASTATIN 20 MG TAB PO SCH (20:56)
[2023-05-14] MEDS ORDERED: ENOXAPARIN 80 MG/0.8 ML SQ SCH (21:00)
[2023-05-14] MEDS ORDERED: CEFTRIAXONE 1,000 MG in NA CHLORIDE 0.9% 50 ML IVPB SCH (21:00)
[2023-05-15] MEDS: NA CHLORIDE 0.9% 250 ML ONE (01:26)
[2023-05-15] MEDS: VANCOMYCIN 1.25 GM in NA CHLORIDE 0.9% 250 ML IVPB SCH (06:03)
--- NOTE | 2023-05-15 06:46 | P.PN ---
Patient flagged for sepsis yesterday. Normal lactate level. Hemoglobin dropped to 7.5. Patient reports history of intermittent dark-colored stool. Cardiology input appreciated. Obtain echocardiogram Blood cultures. Possible immunosuppression from immunotherapy, methotrexate and prednisone for rheumatoid arthritis Possible pneumonia. Antibiotics broadened to IV cefepime and vancomycin Transfuse 1 unit PRBC Monitor for active GI bleed. Noted patient has been on Eliquis for A-fib. Eliquis changed to heparin drip due to significant anemia. Considering GI consult. <rome mejias - Last Filed: 05/15/23 14:49> Date of Service: 05/15/23 Subjective Afebrile overnight No new complaints Breathing better productive cough ROS 10 point ROS as noted above, otherwise negative Physical Exam General: Alert and oriented x 3, NAD, conversing well HEENT: Atraumatic, Normocephalic, PERRLA Neck: Supple, 2+ carotid pulse no bruit Respiratory: Normal air movement, Rhonchi/gurgles, productive cough Cardiovascular: S1 S2 present, Irregular heart rate/rhythm (atrial fibrillation), heart rate 110, Capillary refill: <2 Seconds Gastrointestinal: Normal bowel sounds, Soft and benign, ND/NT Musculoskeletal: No clubbing, No swelling, No contractures Integumentary: No rashes, Other (bruising to right groin) Neurological: Normal speech, Normal strength at 5/5 x4 extr Vitals Reviewed Problem list Sepsis secondary to pneumonia in a patient with pulmonary fibrosis Febrile Atrial fibrillation on Eliquis Chronic systolic congestive heart failure with a EF 25% Elevated troponin Chronic anemia History of hypertension with hypotension Prolonged QT Rheumatoid arthritis Assessment and plan Sepsis secondary to pneumonia in a patient with pulmonary fibrosis Febrile -Chest x-ray reports "Developing right midlung peripheral airspace opacity, concerning for atelectasis versus pneumonia" -Tylenol -Nebulizer treatment -blood cultures following -Vancomycin and cefepime -Supplemental oxygen -Incentive spirometer Atrial fibrillation on Eliquis Chronic systolic congestive heart failure with a EF 25% Elevated troponin -Status post cardiac ablation 05/08, troponin 88.6/ 64.9/ 56.2, heparin drip -BNP 4003, hold IV fluids -EKG demonstrates sinus tachycardia at 115 bpm with continued atrial fibrillation versus sinus arrhythmia. Left axis noted and diffuse nonspecific ST's ST changes -Presents with tachycardia- continues to be in Afib with HR 110 -Continue home medications -Cardiology consulted -ECHO reports severe MAC with mild mitral stenosis and regurgitation Grade 2 diastolic dysfunction moderate pulmonary HTN. Right ventricular systolic pressure 55-60mmHg Chronic anemia -Monitor H&H 7.04/16., recheck pending -Transfuse one unit PRBC History of hypertension with hypotension -Presents with hypotension due to sepsis -Euvolemic, gentle IVF-recommended by cardiology -Hold IV fluids due to congestive heart failure Prolonged QT -QT 456 -Avoid medications that prolong QT Rheumatoid arthritis -Continue home medication DVT PPx heparin drip Full code LOS 2 to 3 days <Juliann Levine - Last Filed: 05/15/23 18:11>
[2023-05-15 08:05] LABS: Absolute Eosinophils 0.3 K/uL (0-0.5); Absolute Lymphocytes (CBC) 0.5 K/uL (0.7-4.9); Absolute Monocytes 0.3 K/uL (0.1-1.3); Absolute Neutrophil 3.6 K/uL (1.8-8.0); Basophils % 0.3 % (0-1.3); Eosinophils % 6.2 % (0-4.4); Hematocrit 21.6 % (39.6-49.0); Hemoglobin 7.2 g/dL (13.6-17.9); Lymphocytes % 11.3 % (15.3-44.8); MCH 30.4 pg (27.0-35.0); MCHC 33.3 g/dL (32.0-36.0); MCV 91.3 fL (80-100); MPV 8.2 fL (7.6-11.3); Monocytes % 6.4 % (3.3-12.3); Neutrophils % 75.8 % (41.7-73.7); Nucleated Red Blood Cells % 0.1 % (0-0); Platelets 186 thou/uL (152-406); RBC Red Blood Cell Count 2.36 M/uL (4.33-5.43); Red Cell Distribution Width 23.6 % (12.1-15.2)
[2023-05-15 08:26] LABS: Anion Gap 5.7 mEq/L (5.0-15.0); Phosphorus 3.1 mg/dL (2.5-4.9); Potassium 3.7 mEq/L (3.5-5.1)
[2023-05-15] MEDS ORDERED: ENOXAPARIN 40 MG/0.4 ML SQ SCH (09:00)
[2023-05-15] MEDS ORDERED: AZITHROMYCIN IV 500 MG in NA CHLORIDE 0.9% 250 ML IVPB SCH (09:00)
[2023-05-15] MEDS: ASPIRIN EC 81 MG TAB PO SCH (09:44)
[2023-05-15] MEDS: FOLIC ACID 1 MG TABLET PO SCH (09:44)
--- NOTE | 2023-05-15 10:58 | ECHO ---
HEIGHT: 5 ft 10 in WEIGHT: 158 lb 11.2 oz DATE OF STUDY: 05/25/[address]: Glenn Goel MD 2-DIMENSIONAL: YES M.MODE: YES DOPPLER: YES COLOR FLOW: YES TDS: NO PORTABLE: YES DEFINITY: NO BUBBLE STUDY: NO DIAGNOSIS: LOW BLOOD PRESSURE, HIGH HEARTRATE, IRREGULAR RHYTHM CARDIAC HISTORY: CATHERIZATION:YES SURGERY: YES PROSTHETIC VALVE: NO PACEMAKER: NO MEASUREMENTS (cm) DIASTOLIC (NORMALS) SYSTOLIC (NORMALS) IVSd 1.1 (0.6-1.2) LA Diam 2.5 (1.9-4.0) LVEF 55-60% LVIDd 4.4 (3.5-5.7) LVIDs 3.5 (2.0-3.5) %FS 19% LVPWd 1.2 (0.6-1.2) Ao Diam 3.0 (2.0-3.7) 2 DIMENSIONAL ASSESSMENT: RIGHT ATRIUM: NORMAL LEFT ATRIUM: NORMAL RIGHT VENTRICLE: NORMAL LEFT VENTRICLE: NORMAL TRICUSPID VALVE: MILD TRICUSPID REGURGITATION MITRAL VALVE: SEVERE MITRAL ANNULAR CALCIFICATION, MILD MITRAL REGURGITATION PULMONIC VALVE: NO VISUALIZED AORTIC VALVE: MODERATE SCLEROSIS PERICARDIAL EFFUSION: NONE AORTIC ROOT: NORMAL LEFT VENTRICULAR WALL MOTION: NORMAL DOPPLER/COLOR FLOW: GRADE II DIASTOLIC DYSFUNCTION. COMMENTS: 1. NORMAL LEFT VENTRICULAR SYSTOLIC FUNCTION. NORMAL WALL MOTION. LEFT VENTRICULAR EJECTION FRACTION 55-60%. 2. GRADE II DIASTOLIC DYSFUNCTION. 3. MODERATE PULMONARY HYPERTENSION. RIGHT VENTRICULAR SYSTOLIC PRESSURE 55-60 mmHg. 4. SEVERE MITRAL ANNULAR CALCIFICATION. MILD MITRAL STENOSIS. MILD MITRAL REGURGITATION. TECHNOLOGIST: BRENDEN ARAGON
[2023-05-15] MEDS: NA CHLORIDE 0.9% 250 ML IV ONE (12:05)
--- NOTE | 2023-05-15 12:10 | P.CNS ---
Date of Consult: 05/15/23 Chief Complaint: sepsis 2/2 pneumonia History of Present Illness: Patient with PMH of atrial fibrillation s/p recent ablation on 04/2023 presented with fever, chills and productive cough of yellow sputum, he started feeling like that soon after went home from the ablation procedure, denies chest pain, no palpitations, no syncope. Allergies Iodinated Contrast Media [Iodinated Contrast Media - IV Dye] Allergy (Verified 01/12/21 16:05) swelling , whelts aspirin [From Percodan] Adverse Reaction (Verified 01/12/21 16:05) hallucinations oxycodone [From Percodan] Adverse Reaction (Verified 01/12/21 16:05) hallucinations Home Medications: Abatacept [Orencia Clickject] 125 mg SQ SEECOM 05/14/23 Apixaban [Eliquis] 5 mg PO BID 05/14/23 Aspirin [Aspirin EC] 81 mg PO DAILY 05/14/23 Docusate [Colace Cap] 200 mg PO BEDTIME 05/14/23 Furosemide [Lasix] 20 mg PO DAILY 05/14/23 Methotrexate [Methotrexate*] 8 pill PO SEECOM 05/14/23 Polyvinyl Alcohol/Povidone [Clear Eyes Natural Tears Drop] 15 ml OP BID 05/14/23 RX: Acetaminophen [Pain Relief] 650 mg PO TID PRN 05/14/23 RX: Atorvastatin Calcium 20 mg PO BEDTIME 05/14/23 RX: Famotidine 20 mg PO DAILY 05/14/23 RX: Folic Acid 1 mg PO DAILY 05/14/23 RX: Iron 65 mg PO DAILY 05/14/23 RX: Metoprolol Tartrate 50 mg PO DAILY 05/14/23 Tamsulosin [Flomax] 0.4 mg PO BEDTIME 05/14/23 predniSONE [Prednisone] 5 mg PO DAILY 05/14/23 - Past Medical/Surgical History Diabetic: No -: Rheumatoid arthritis -: Pulmonary fibrosis -: Atrial fibrillation on chronic anticoagulation therapy -: Chronic systolic CHF with EF of 25% -: Hypertension -: CAD -: ablation -: Colon cancer resection -: Knee surgery -: Shoulder surgery -: Tonsillectomy -: Cardioversion December 2020 -: ablation Psychosocial/ Personal History: Patient lives at home. - Family History Mother Medical History: Heart disease Brother Medical History: Heart disease - Social History Alcohol use: No CD- Drugs: No Caffeine use: No Place of Residence: Home Review of Systems 10-point ROS is otherwise unremarkable Physical Examination Temp Pulse Resp BP Pulse Ox 98.6 F 110 H 17 81/53 L 90 L 05/15/23 08:00 05/15/23 08:00 05/15/23 08:00 05/15/23 08:00 05/15/23 08:00 General: Alert, Oriented x3 Neck: Supple Respiratory: Clear to auscultation bilaterally Cardiovascular: No edema, Normal S1 S2 Gastrointestinal: Normal bowel sounds Laboratory Data (last 24 hrs) 05/14/23 05/14/23 05/14/23 12:37 12:37 12:37 WBC 4.80 Hgb 8.7 L Hct 26.2 L Plt Count 215 PT 17.5 H INR 1.61 Sodium 139 Potassium 3.6 BUN 17 Creatinine 0.82 Glucose 118 H Magnesium 2.1 Total Bilirubin 0.7 AST 41 H ALT 16 Alkaline Phosphatase 104 - Problems (1) Atrial fibrillation Current Visit: Yes Status: Acute Plan: Patient is s/p recent ablation. please continue anticoagulation, agree with heparin at this time and continue to monitor Hg. (2) Pneumonia Current Visit: Yes Status: Acute Plan: please get blood cultures, if positive, patient might require DACIA to check for infective endocarditis. continue broad spectrum antibiotics. continue hydration (3) CHF (congestive heart failure), NYHA class III Current Visit: No Status: Acute Plan: patient is currently euvolemic on exam with soft BP. Hydration and monitor volume status.
--- NOTE | 2023-05-15 14:26 | EKG ---
Test Date: 2023-05-14 Test Time: 12:12:40 Geospatial Information Technologist: KAYODE MEASUREMENT RESULTS: Intervals: Rate: 115 MA: QRSD: 90 QT: 330 QTc: 456 [place]: P: 60 MA: QRS: -70 T: 99 INTERPRETIVE STATEMENTS: Sinus tachycardia with 2nd degree AV block (Mobitz I) Left anterior fascicular block Anterior infarct, age undetermined Abnormal ECG Compared to ECG 02/18/2023 10:58:41 Atrial fibrillation no longer present Myocardial infarct finding still present Electronically Signed On 05-15-23 14:23:32 CDT by Deuce Gonzalez
[2023-05-15] MEDS ORDERED: SODIUM CHLORIDE 0.9% 10ML INJ IV PRN (14:58)
[2023-05-15] MEDS: CARBOXYMETHYLCELLULOSE SODIUM 0.5% 15 ML OPTH SCH (16:00)
[2023-05-16] MEDS: PANTOPRAZOLE 40 MG INJ IVP SCH (00:49)
[2023-05-16 00:58] LABS: Absolute Eosinophils 0.4 K/uL (0-0.5); Absolute Lymphocytes (CBC) 0.5 K/uL (0.7-4.9); Absolute Monocytes 0.2 K/uL (0.1-1.3); Basophils % 0.4 % (0-1.3); Eosinophils % 7.6 % (0-4.4); Hematocrit 23.9 % (39.6-49.0); Hemoglobin 8.1 g/dL (13.6-17.9); Lymphocytes % 10.3 % (15.3-44.8); MCH 30.7 pg (27.0-35.0); MCHC 33.8 g/dL (32.0-36.0); MCV 90.8 fL (80-100); MPV 7.9 fL (7.6-11.3); Monocytes % 4.8 % (3.3-12.3); Neutrophils % 76.9 % (41.7-73.7); Nucleated Red Blood Cells % 0.1 % (0-0); Platelets 176 thou/uL (152-406); RBC Red Blood Cell Count 2.63 M/uL (4.33-5.43)
[2023-05-16] MEDS: METHYLPREDNISOLONE 40 MG INJ IV SCH (06:37)
[2023-05-16 07:17] LABS: Absolute Eosinophils 0.4 K/uL (0-0.5); Absolute Lymphocytes (CBC) 0.5 K/uL (0.7-4.9); Absolute Monocytes 0.2 K/uL (0.1-1.3); Absolute Neutrophil 3.9 K/uL (1.8-8.0); Basophils % 0.3 % (0-1.3); Eosinophils % 7.2 % (0-4.4); Hematocrit 25.2 % (39.6-49.0); Hemoglobin 8.5 g/dL (13.6-17.9); Lymphocytes % 9.8 % (15.3-44.8); MCH 30.3 pg (27.0-35.0); MCHC 33.6 g/dL (32.0-36.0); MCV 90.2 fL (80-100); Monocytes % 4.8 % (3.3-12.3); Neutrophils % 77.9 % (41.7-73.7); Nucleated Red Blood Cells % 0.2 % (0-0); Platelets 182 thou/uL (152-406); RBC Red Blood Cell Count 2.79 M/uL (4.33-5.43); Red Cell Distribution Width 21.6 % (12.1-15.2)
[2023-05-16 07:32] LABS: Anion Gap 8.5 mEq/L (5.0-15.0); Magnesium 2.1 mg/dL (1.6-2.4); Phosphorus 2.6 mg/dL (2.5-4.9); Potassium 3.5 mEq/L (3.5-5.1)
--- NOTE | 2023-05-16 08:00 | P.PN ---
Date of Service: 05/16/23 Subjective VTach OVN, he was asymptomatic Sitting in the bedside chair Complaining of not having an appetite, but eating for his 's sake ROS 10 point ROS as noted above, otherwise negative Physical Exam General: AAOx3, NAD, conversing well HEENT: Atraumatic, Normocephalic, PERRLA Neck: Supple, 2+ carotid pulse no bruit Respiratory: Symmetrical chest wall movement rhonchi/gurgles, productive cough Cardiovascular: S1 S2 present, Irregular heart rate/rhythm (atrial fibrillation) Capillary refill: <2 Seconds Gastrointestinal: bowel sounds present, Soft and benign on palpation, ND/NT Musculoskeletal: No clubbing, No swelling, No contractures Integumentary: No rashes, Other (bruising to right groin) Neurological: Normal speech, Normal strength at 5/5 x4 extr Vitals Reviewed Problem list Sepsis secondary to pneumonia in a patient with pulmonary fibrosis Febrile [facility] Chronic systolic congestive heart failure with a EF 25% Elevated troponin Chronic anemia History of hypertension with hypotension Prolonged QT Rheumatoid arthritis Assessment and plan Sepsis secondary to pneumonia in a patient with pulmonary fibrosis Febrile- resolved -Chest x-ray reports "Developing right midlung peripheral airspace opacity, concerning for atelectasis versus pneumonia" -CT chest abdomen pelvis reports "Moderate bilateral subpleural interstitial lung opacities without significant change having the appearance of pulmonary fibrosis. Development of moderate patchy interstitial alveolar opacities left lower lobe compatible with superimposed acute pneumonitis" -Tylenol -Nebulizer treatment -blood cultures NGTD -Vancomycin and cefepime -Supplemental oxygen -Incentive spirometer Atrial fibrillation on Eliis Chronic systolic congestive heart failure with a EF 25% Elevated troponin -Status post cardiac ablation 05/08, troponin 88.6/ 64.9/ 56.2, heparin drip will stop at midnight -BNP 4003, hold IV fluids -EKG demonstrates sinus tachycardia at 115 bpm with continued atrial fibrillation versus sinus arrhythmia. Left axis noted and diffuse nonspecific ST's ST changes -Presents with tachycardia- continues to be in Afib with HR 110 -Continue home medications -Cardiology consulted -ECHO reports severe MAC with mild mitral stenosis and regurgitation Grade 2 diastolic dysfunction moderate pulmonary HTN. Right ventricular systolic pressure 55-60mmHg -amiodarone 200 mg PO BID, if not converted this weekend, will schedule DACIA DCCV on Friday if breathing has improved -heparin gtt to stop at midnight for scope in the AM Chronic anemia -Monitor H&H 8.5/25.2, 9.1/27.1 -05/14- one unit PRBC -Dr. Mathew to perform scope in the AM History of hypertension with hypotension -Presents with hypotension due to sepsis -Euvolemic, gentle IVF-recommended by cardiology -Hold IV fluids due to congestive heart failure Prolonged QT -QT 456 -Avoid medications that prolong QT Rheumatoid arthritis -Continue home medication DVT PPx heparin drip Full code LOS 2 to 3 days <Juliann Levine - Last Filed: 05/16/23 19:37> Chart has been reviewed. Events of the last 24 hours have been noted. Case discussed with MARCO A. I performed a substantial part of the MDM during this patient's care today. I personally made or approved the documented management plan and acknowledge its risk of complications. I agree with the findings and documentation provided in the MARCO A's notes. Consulted gastroenterology. N.p.o. at this time. Monitor H&H. <Krishna Jules - Last Filed: 05/19/23 05:32>
[2023-05-16 09:25] LABS: Anisocytosis 1+; Blood Morphology Comment NOTED (NOT SEEN); Macrocytosis SLIGHT; Platelet Estimate ADEQ; White Blood Cell Scan OK (OK)
[2023-05-16] MEDS ORDERED: DIPHENHYDRAMINE 50 MG/ML VIAL IV SCH (11:00)
--- NOTE | 2023-05-16 11:51 | RAD REPORT ---
EXAM DESCRIPTION: CT - Chest Abd Pelvis Wo Con - 05/16/2023 11:24 am CLINICAL HISTORY: Chest and abdominal pain COMPARISON: January 2023 CT chest TECHNIQUE: Computed axial tomography of the chest, abdomen and pelvis was obtained. Oral contrast wa s given. IV contrast was not requested. All CT scans are performed using dose optimization technique as appropriate and may include automated exposure control or mA/KV adjustment according to patient size. FINDINGS: The evaluation of mediastinum, mesha, vessels and solid organs is limited secondary to the lack of IV contrast administration Moderate bilateral predominantly subpleural interstitial pulmonary opacities have the appearance pulm onary fibrosis. No significant change. Moderate patchy interstitial and alveolar opacities have developed within the left lower lobe. No significant mediastinal or hilar lymphadenopathy is seen. Small pleural effusions. Small loculated pericardial effusion unchanged The liver grossly normal. Spleen borderline enlarged. Pancreas, adrenals and kidneys appear grossly normal There is no evidence of diverticulitis. Mild to moderate anterior subluxation of L5 on S1. Spondylolysis L5. Mild compression L2 vertebral diana dy probably chronic. Filter within the IVC Moderate to marked compression fracture T7 vertebral body chronic IMPRESSION: Moderate bilateral subpleural interstitial lung opacities without significant change beal ving the appearance of pulmonary fibrosis. Development of moderate patchy interstitial alveolar opacities left lower lobe compatible with superi mposed acute pneumonitis
[2023-05-16] MEDS: POTASSIUM CL SA 10 MEQ TAB PO ONE (12:10)
--- NOTE | 2023-05-16 14:41 | P.PN ---
Subjective Date of Service: 05/16/23 Chief Complaint: sepsis 2/2 pneumonia Subjective: No new changes Review of Systems 10-point ROS is otherwise unremarkable Physical Examination - Vital Signs Temperature: 98.2 F Blood Pressure: 118/76 Pulse: 102 Respirations: 18 Pulse Ox (%): 99 - Physical Exam General: Alert, Oriented x3 HEENT: Atraumatic Neck: Supple Respiratory: Clear to auscultation bilaterally Cardiovascular: No edema, Irregular heart rate/rhythm Gastrointestinal: Normal bowel sounds Assessment And Plan - Current Problems (Diagnosis) (1) Atrial fibrillation Current Visit: Yes Status: Acute Plan: Patient is s/p recent ablation. please continue anticoagulation, agree with heparin at this time and continue to monitor Hg please start patient on Amiodarone 200 mg po BID Plan if not converted on the is to do DACIA DCCV on friday if breathing status improved. (2) Pneumonia Current Visit: Yes Status: Acute Plan: please get blood cultures, if positive, patient might require DACIA to check for infective endocarditis. continue broad spectrum antibiotics. continue hydration (3) CHF (congestive heart failure), NYHA class III Current Visit: No Status: Acute Plan: patient is currently euvolemic on exam with soft BP. Hydration and monitor volume status.
[2023-05-16] MEDS: METHYLPREDNISOLONE 125 MG INJ IV SCH (17:25)
[2023-05-16 19:10] LABS: Absolute Lymphocytes (CBC) 0.3 K/uL (0.7-4.9); Absolute Monocytes 0.1 K/uL (0.1-1.3); Absolute Neutrophil 3.2 K/uL (1.8-8.0); Basophils % 0.2 % (0-1.3); Eosinophils % 0.1 % (0-4.4); Hematocrit 27.1 % (39.6-49.0); Hemoglobin 9.1 g/dL (13.6-17.9); Lymphocytes % 7.9 % (15.3-44.8); MCH 30.3 pg (27.0-35.0); MCHC 33.7 g/dL (32.0-36.0); MPV 8.2 fL (7.6-11.3); Monocytes % 1.7 % (3.3-12.3); Neutrophils % 90.1 % (41.7-73.7); Nucleated Red Blood Cells % 0.2 % (0-0); Platelets 201 thou/uL (152-406); RBC Red Blood Cell Count 3.01 M/uL (4.33-5.43)
[2023-05-16] MEDS: AMIODARONE HCL 200 MG TAB PO SCH (21:00)
[2023-05-17 04:30] LABS: Absolute Lymphocytes (CBC) 0.3 K/uL (0.7-4.9); Absolute Monocytes 0.1 K/uL (0.1-1.3); Absolute Neutrophil 3.2 K/uL (1.8-8.0); Basophils % 0.1 % (0-1.3); Eosinophils % 0.2 % (0-4.4); Hematocrit 23.8 % (39.6-49.0); Hemoglobin 8.1 g/dL (13.6-17.9); Lymphocytes % 8.4 % (15.3-44.8); MCH 30.8 pg (27.0-35.0); MCHC 34.2 g/dL (32.0-36.0); MPV 8.3 fL (7.6-11.3); Monocytes % 3.5 % (3.3-12.3); Neutrophils % 87.8 % (41.7-73.7); Nucleated Red Blood Cells % 0.1 % (0-0); Platelets 168 thou/uL (152-406); RBC Red Blood Cell Count 2.64 M/uL (4.33-5.43); Red Cell Distribution Width 21.6 % (12.1-15.2)
[2023-05-17 04:43] LABS: Magnesium 2.3 mg/dL (1.6-2.4); Phosphorus 2.8 mg/dL (2.5-4.9)
[2023-05-17 05:18] LABS: Blood Morphology Comment NOT SEEN (NOT SEEN); Differential Total Cells Count 100; Lymphocytes 10 % (15-42); Monocytes 3 % (0-10); Platelet Estimate ADEQ; Segmented Neutrophils 87 % (40-80)
[2023-05-17] MEDS ORDERED: EPINEPHRINE 1 MG/ML VIAL ONE ×2 (07:27)
[2023-05-17] MEDS: Ringers Lactate 1,000 ML IV ONE (07:30)
[2023-05-17] MEDS ORDERED: LIDOCAINE 1% MPF 5 ML VIAL ONE (07:31)
[2023-05-17] MEDS ORDERED: propofoL 200 MG/20 ML VIAL IV ONE (07:31)
--- NOTE | 2023-05-17 07:59 | P.PN ---
Date of Service: 05/17/23 Subjective Hypotensive OVN coughing on examination d/t s/p EGD nebulizer and inhaler given ROS 10 point ROS as noted above, otherwise negative Physical Exam General: Awake, alert, and oriented x3, conversing well HEENT: Atraumatic, Normocephalic, PERRLA Neck: Supple, 2+ carotid pulse no bruit Respiratory: Symmetrical chest wall movement, some rhonchi/gurgles, productive cough Cardiovascular: Irregular heart rate/rhythm (atrial fibrillation), S1 S2 present Capillary refill: <2 Seconds Gastrointestinal: Soft and benign on palpation, ND/NT, bowel sounds present Musculoskeletal: No clubbing, No swelling, No contractures Integumentary: No rashes, Other (bruising to right groin) Neurological: Normal speech, Normal strength at 5/5 x4 extr Vitals Reviewed Problem list Sepsis secondary to pneumonia in a patient with pulmonary fibrosis Febrile Atrial fibrillation on Eliis Chronic systolic congestive heart failure with a EF 25% Elevated troponin Chronic anemia History of hypertension with hypotension Prolonged QT Rheumatoid arthritis Assessment and plan Sepsis secondary to pneumonia in a patient with pulmonary fibrosis Febrile- resolved -Chest x-ray reports "Developing right midlung peripheral airspace opacity, concerning for atelectasis versus pneumonia" -CT chest abdomen pelvis reports "Moderate bilateral subpleural interstitial lung opacities without significant change having the appearance of pulmonary fibrosis. Development of moderate patchy interstitial alveolar opacities left lower lobe compatible with superimposed acute pneumonitis" -Tylenol -Nebulizer treatment -blood cultures NGTD -Vancomycin and cefepime -Supplemental oxygen -Incentive spirometer Atrial fibrillation on [facility] Chronic systolic congestive heart failure with a EF 25% Elevated troponin -Status post cardiac ablation 05/08, troponin 88.6/ 64.9/ 56.2, heparin drip will stop at midnight -BNP 4003, hold IV fluids -EKG demonstrates sinus tachycardia at 115 bpm with continued atrial fibrillation versus sinus arrhythmia. Left axis noted and diffuse nonspecific ST's ST changes -Presents with tachycardia- continues to be in Afib with HR 116 -Continue home medications -Cardiology consulted -ECHO reports severe MAC with mild mitral stenosis and regurgitation Grade 2 diastolic dysfunction moderate pulmonary HTN. Right ventricular systolic pressure 55-60mmHg -amiodarone 200 mg PO BID, if not converted this , will schedule DACIA DCCV on Friday if breathing has improved -heparin gtt restarted Chronic anemia -Monitor H&H 8.03/18.8 -05/14- one unit PRBC -Dr. Mathew scope this AM -small bowel series History of hypertension with hypotension -Presents with hypotension due to sepsis -Euvolemic, gentle IVF-recommended by cardiology -Hold IV fluids due to congestive heart failure -Continues to be hypotensive, /62 Prolonged QT -QT 456 -Avoid medications that prolong QT Rheumatoid arthritis -Continue home medication DVT PPx heparin drip restarted Full code LOS 2 to 3 days <Juliann Levine - Last Filed: 05/17/23 18:49> Chart has been reviewed. Events of the last 24 hours have been noted. Case discussed with MARCO A. I performed a substantial part of the MDM during this patient's care today. I personally made or approved the documented management plan and acknowledge its risk of complications. I agree with the findings and documentation provided in the MARCO A's notes. Patient is doing well. Continues on heparin drip. EGD performed with no active bleeding. Will discuss with cardiology if we can switch over to oral anticoagulation. <Krishna Jules - Last Filed: 05/19/23 05:31>
[2023-05-17] MEDS: LEVALBUTEROL 0.63 MG/3 ML NEB NEB PRN (09:30)
[2023-05-17] MEDS ORDERED: ALBUTEROL INHALER 200 PUFF/6.7 GM IH PRN (09:36)
--- NOTE | 2023-05-17 09:55 | CON ---
Date of Consultation: 05/16/2023 Reason For Consultation: Admitted to the hospital due to GI bleed, melena. Also, shortness of breat h. History Of Present Illness: This patient is a 73-year-old white male with history of pulmonary fibro sis; rheumatoid arthritis; atrial fibrillation, on Eliquis with systolic congestive heart failure of 25%; hypertension, presented to the hospital with difficulty breathing, chest congestion. Also, repo rting black stools over the past 4 days. Hemoglobin is down to approximately 7. Packed RBCs transfu sions ordered. Unclear if his shortness of breath is due to his pulmonary fibrosis, atrial fibrillat ion, congestive heart failure, or anemia. The patient has improved in the hospital since admission. Stating he feels much better since admission. On therapy for his atrial fibrillation, congestive he art failure, pulmonary fibrosis, and anemia. The patient says he has been having the melena over the past 4 days since Friday. Past Medical History: Significant for congestive heart failure, atrial fibrillation, asbestosis, pul monary fibrosis, coronary artery disease, status post main pericardial effusion surgery in March 15, colon cancer 2011, resection with 2 surgeries in [facility], and flu B in the past year. Also, has hi story of knee surgery, shoulder surgery, tonsillectomy, and cardioversion December 2020. Allergies: IV CONTRAST, ASPIRIN, AND PERCODAN, IODINE, OXYCODONE. Medications On Admission: Included abatacept, Tylenol, Eliquis, aspirin, atorvastatin, Colace, Pepci d, folic acid, Lasix, iron, methotrexate, metoprolol, Clear Eyes, Natural Tears drops, Flomax, and pr ednisone. Social History: , 4 kids. No tobacco. No alcohol. Quit alcohol in January 2023. Family History: Father had a stroke. Mother of old age at 92. His brother had leukemia. Anot her brother with HIV, with alternative lifestyle. Another brother of lung scarring, pulmon micky issue. Also, had prostate cancer. Had a half sister who of lung disease as well of unknown etiology. Review of Systems: Patient has shortness of breath, melena, weakness, fatigue. He denies any hematemesis, coffee-ground s emesis, hematochezia, hematuria, dysuria, polydipsia, hemoptysis, epistaxis, muscle aches, joint ac hes, backaches. He does have shortness of breath, dyspnea on exertion. Some mild muscle aches, join t aches, backaches. No depression or anxiety. Physical Examination: Vital Signs: 5 feet 10 inches, 158 pounds, BMI 22 kg/sq m. He has temperature 98.3 degrees Fahrenhe it, pulse 84-102, respirations 18, blood pressure 118/76, O2 saturation 99% to 100%. General: Well-nourished, well-developed male, sitting in chair, in no acute distress. HEENT: Normocephalic, atraumatic. Anicteric. Pupils equal, round, and reactive to light. Extraocu lar movements are intact. Oropharynx is clear. Neck: Supple. No masses. Respirations: Clear to auscultation bilaterally. Cardiac: Regular rate and rhythm. No gallops or rubs. Slightly tachycardic at times. Abdomen: Positive bowel sounds. Soft, nontender, nondistended. No hepatosplenomegaly. Extremities: No clubbing, cyanosis, or edema. 2+ pulses. Neuro: Alert and oriented x3. Grossly nonfocal. 5/5 motor sensation to light touch. Laboratory Data: The patient has white count of 3.6; hemoglobin 9.1, up from 7.2; hematocrit 27.1; M CV of 90; platelet count of 201; polys 90%; lymphocytes 8%; monocytes 2%. PT of 68.4, PTT of 16.3, I NR of 1.56. Sodium 138, potassium 3.5, chloride 103, bicarb 30, BUN of 10, creatinine of 0.7, glucos e 99, calcium 7.9. Phosphorus 2.6, magnesium 2.1. Cholesterol 80, triglycerides 59, LDL 40, HDL 28. Chest x-ray, right middle lung peripheral airspace opacity, atelectasis, and pneumonia. CT moderat e bilateral subpleural pulmonary opacity, significant change in appearance, pulmonary fibrosis, devel opment of moderate patchy interstitial alveolar opacities in left lower lobe compatible with superimp osed acute pneumonitis. Impression: 1.Gastrointestinal bleed, melena since Miguelito past 4 days, anemia on admission 7.2, transfusion up t o 9.1 with need to cascade with EGD. 2.Atrial fibrillation, status post ablation 1 week ago with subsequent pneumonia it appears. 3.History of congestive heart failure, atrial fibrillation, asbestosis, pulmonary fibrosis, coronary artery disease, status post pericardial effusion in February 2021, cardioversion in 2020, colon cance r 2011, COVID and flu B in the past year. Recommendations: 1.Continue PPI therapy. 2.IV fluids gently. 3.Serial H and H and transfuse p.r.n. 4.Consider increased high risk EGD in this patient. 5.Check PT, INR. Already, he has PT, PTT. 6.Continue to hold heparin 6 hours prior to EGD. AIME/JOEL Voice ID: [id number] Report ID: [id number]
--- NOTE | 2023-05-17 14:06 | RAD REPORT ---
EXAM DESCRIPTION: RAD - Small Bowel Series - 05/17/2023 1:50 pm CLINICAL HISTORY: GI BLEED COMPARISON: <Comparisons> FINDINGS: Pepper Picker film shows a nonspecific bowel gas pattern. No obstruction or free air. No suspiciou s calcifications. Sternotomy. IVC filter. Gastric size and mucosal fold pattern are normal. No delay in transit of contrast into the small david l. Small bowel is normal in diameter with no mucosal fold thickening. No intrinsic or extrinsic mass identifiable. Terminal ileum has normal appearance. Transit time to the colon is normal. No fluoroscopy was performed. Total images acquired: 15 IMPRESSION: Normal small bowel series.
[2023-05-17] MEDS: HEPARIN/D5W 25,000 UNIT/500 ML BAG IV PRN (15:33)
[2023-05-17] MEDS: METOPROLOL XL 50 MG TAB PO ONE (18:31)
[2023-05-17 20:24] LABS: Absolute Lymphocytes (CBC) 0.6 K/uL (0.7-4.9); Absolute Monocytes 0.8 K/uL (0.1-1.3); Basophils % 0.2 % (0-1.3); Hematocrit 23.6 % (39.6-49.0); Hemoglobin 7.9 g/dL (13.6-17.9); Lymphocytes % 4.9 % (15.3-44.8); MCH 30.5 pg (27.0-35.0); MCHC 33.6 g/dL (32.0-36.0); MCV 90.7 fL (80-100); MPV 8.5 fL (7.6-11.3); Monocytes % 6.7 % (3.3-12.3); Nucleated Red Blood Cells % 0.2 % (0-0); Platelets 203 thou/uL (152-406); Red Cell Distribution Width 22.3 % (12.1-15.2)
[2023-05-17 20:37] LABS: Neutrophils % 88.2 % (41.7-73.7)
[2023-05-17] MEDS: METHYLPREDNISOLONE 125 MG INJ IV SCH (20:47)
[2023-05-17] MEDS: NA CHLORIDE 0.9% 250 ML IV SCH (22:09)
[2023-05-18] MEDS: METOPROLOL TAR 25 MG TAB PO SCH (06:13)
[2023-05-18 06:58] LABS: Absolute Lymphocytes (CBC) 0.4 K/uL (0.7-4.9); Absolute Monocytes 0.4 K/uL (0.1-1.3); Absolute Neutrophil 10.5 K/uL (1.8-8.0); Basophils % 0.1 % (0-1.3); Eosinophils % 0.1 % (0-4.4); Hematocrit 28.8 % (39.6-49.0); Hemoglobin 9.3 g/dL (13.6-17.9); Lymphocytes % 3.9 % (15.3-44.8); MCH 29.1 pg (27.0-35.0); MCHC 32.2 g/dL (32.0-36.0); MCV 90.4 fL (80-100); MPV 8.4 fL (7.6-11.3); Monocytes % 3.8 % (3.3-12.3); Neutrophils % 92.1 % (41.7-73.7); Nucleated RBC Absolute Count 0.1 (0-0); Nucleated Red Blood Cells % 0.5 % (0-0); Platelets 216 thou/uL (152-406); RBC Red Blood Cell Count 3.18 M/uL (4.33-5.43); Red Cell Distribution Width 20.3 % (12.1-15.2)
[2023-05-18 07:00] LABS: PT Prothrombin Time 10.8 SECONDS (9.5-12.5); PTT, Activated Partial Thromb 42.3 SECONDS (24.3-36.9); Protime INR 0.98
[2023-05-18 07:51] LABS: Albumin 2.3 g/dL (3.4-5.0); Albumin/Globulin Ratio 0.6 (1.1-1.8); Anion Gap 6.6 mEq/L (5.0-15.0); Bilirubin Total 0.6 mg/dL (0.2-1.0); Globulin 3.6 g/dL (2.3-3.5); Magnesium 2.5 mg/dL (1.6-2.4); Phosphorus 2.1 mg/dL (2.5-4.9); Potassium 3.6 mEq/L (3.5-5.1); Protein, Total 5.9 g/dL (6.4-8.2)
[2023-05-18 08:01] LABS: Differential Total Cells Count 100
[2023-05-18 08:02] LABS: Anisocytosis 1+; Band Neutrophils 3 % (0-1); Blood Morphology Comment NOTED (NOT SEEN); Dohle Bodies PRESENT; Lymphocytes 4 % (15-42); Monocytes 1 % (0-10); Myelocytes 2 % (0-0); Platelet Estimate ADEQ; Reactive Lymphocytes 3 %; Segmented Neutrophils 87 % (40-80); White Blood Cell Scan DIFF (OK)
--- NOTE | 2023-05-18 10:18 | P.CNS ---
Date of Consult: 05/18/23 Reason for Consult: Pulmonary fibrosis Chief Complaint: sepsis 2/2 pneumonia History of Present Illness: pt is 73 yrs of age with Hx of pulmonary fibrosis and A fib , systolic CHF , Aw dyspnea and GIB. Pt mazin Eliquis . S/P EGD no UPGIB Doign well no bleeding now Allergies Iodinated Contrast Media [Iodinated Contrast Media - IV Dye] Allergy (Verified 01/12/21 16:05) swelling , whelts oxycodone [From Percodan] Adverse Reaction (Verified 01/12/21 16:05) hallucinations Home Medications: Abatacept [Orencia Clickject] 125 mg SQ SEECOM 05/14/23 Acetaminophen [Pain Relief] 650 mg PO TID PRN 05/14/23 Apixaban [Eliquis] 5 mg PO BID 05/14/23 Aspirin [Aspirin EC] 81 mg PO DAILY 05/14/23 Atorvastatin Calcium 20 mg PO BEDTIME 05/14/23 Docusate [Colace Cap] 200 mg PO BEDTIME 05/14/23 Famotidine 20 mg PO DAILY 05/14/23 Folic Acid 1 mg PO DAILY 05/14/23 Furosemide [Lasix] 20 mg PO DAILY 05/14/23 Iron 65 mg PO DAILY 05/14/23 Methotrexate [Methotrexate*] 8 pill PO SEECOM 05/14/23 Metoprolol Tartrate 50 mg PO DAILY 05/14/23 Polyvinyl Alcohol/Povidone [Clear Eyes Natural Tears Drop] 15 ml OP BID 05/14/23 Tamsulosin [Flomax] 0.4 mg PO BEDTIME 05/14/23 predniSONE [Prednisone] 5 mg PO DAILY 05/14/23 - Past Medical/Surgical History Diabetic: No -: Rheumatoid arthritis -: Pulmonary fibrosis -: Atrial fibrillation on chronic anticoagulation therapy -: Hypertension -: CAD -: ablation -: Uanble to do Watchman -: Colon cancer resection -: Knee surgery -: Shoulder surgery -: Tonsillectomy -: Cardioversion December 2020 -: ablation Psychosocial/ Personal History: Patient lives at home. - Family History Mother Medical History: Heart disease Brother Medical History: Heart disease - Social History Alcohol use: No CD- Drugs: No Caffeine use: No Place of Residence: Home Review of Systems 10-point ROS is otherwise unremarkable General: Weakness Physical Examination Temp Pulse Resp BP Pulse Ox 97.5 F 94 H 18 104/71 93 05/18/23 08:00 05/18/23 08:00 05/18/23 08:00 05/18/23 08:00 05/18/23 08:00 General: Alert, Oriented x3 HEENT: Atraumatic Neck: Supple Respiratory: Crackles/rales Cardiovascular: No edema, Regular rate/rhythm, Normal S1 S2, Irregular heart rate/rhythm Gastrointestinal: Normal bowel sounds, Soft and benign - Problems (1) Pulmonary fibrosis Current Visit: Yes Status: Acute Plan: Non IPF, NSIP pulmonary fibrosis with CHF and AFB recdnt Hx of GIB bleed. SP EGD VS stable, Recent ECHO NORMAL LEFT VENTRICULAR SYSTOLIC FUNCTION. NORMAL WALL MOTION. LEFT VENTRICULAR EJECTION FRACTION 55-60%. 2. GRADE II DIASTOLIC DYSFUNCTION. 3. MODERATE PULMONARY HYPERTENSION. RIGHT VENTRICULAR SYSTOLIC PRESSURE 55-60 mmHg. 4. SEVERE MITRAL ANNULAR CALCIFICATION. MILD MITRAL STENOSIS. MILD MITRAL REGURGITATION Ct scanpatchy change schange to Po Augmentin BNP elevated S/p transfusion change to PO augmentin. Anticoag CI due to bleeding DC steroids To D/W GI and Cardiology regading anticoag
[2023-05-18] MEDS ORDERED: IPRATROPIUM BROM 0.5MG/2.5ML NEB PRN (10:23)
--- NOTE | 2023-05-18 11:24 | P.PN ---
Subjective Date of Service: 05/18/23 Chief Complaint: Melena, GI bleed, anemia, sepsis 2/2 pneumonia Subjective: Improving (No melena for 2 days, in fact stools in 2 days. EGD revealed only a small hiatal hernia and mild gastritis. He reports a negative colonoscopy in 10/16. Small bowel series unremarkable.) Review of Systems 10-point ROS is otherwise unremarkable Respiratory: Shortness of Breath Physical Examination - Vital Signs Temperature: 97.5 F Blood Pressure: 104/71 Pulse: 94 Respirations: 18 Pulse Ox (%): 93 - Physical Exam General: Alert, In no apparent distress, Oriented x3, Cooperative HEENT: Atraumatic, Normocephalic, PERRLA, EOMI Neck: Supple Respiratory: Diminished Cardiovascular: Normal pulses Gastrointestinal: Soft and benign, No tenderness, No rebound, No guarding Neurological: Normal speech, Normal strength at 5/5 x4 extr Assessment And Plan - Current Problems (Diagnosis) (1) Melena Current Visit: Yes Status: Acute Comment: Improved. (2) Anemia Current Visit: Yes Status: Acute (3) Atrial fibrillation Current Visit: Yes Status: Acute (4) Pneumonia Current Visit: Yes Status: Acute (5) Pulmonary fibrosis Current Visit: Yes Status: Acute (6) CHF (congestive heart failure), NYHA class III Current Visit: No Status: Acute - Plan REC: 1) outpatient pillcam 2) GI clinic follow-up
--- NOTE | 2023-05-18 11:28 | P.PN ---
Date of Service: 05/18/23 Subjective one unit PRBC last night awake alert and oriented x3, conversing well coughing improved no new complaints ROS 10 point ROS as noted above, otherwise negative Physical Exam General: NAD, AAOx3 conversing well HEENT: Atraumatic, Normocephalic, PERRLA Neck: Supple, 2+ carotid pulse no bruit Respiratory: Symmetrical chest wall movement, some rhonchi/gurgles, coughing improved Cardiovascular: Irregular heart rate/rhythm (multifocal atrial tachycardia), S1 S2 present Capillary refill: <2 Seconds Gastrointestinal: Soft and benign on palpation, ND/NT, bowel sounds Musculoskeletal: No clubbing, No swelling, No contractures Integumentary: No rashes, Other (bruising to right groin) Neurological: Normal speech, Normal strength at 5/5 x4 extr Vitals Reviewed Problem list Sepsis secondary to pneumonia in a patient with pulmonary fibrosis Febrile Atrial fibrillation on Eliquis Chronic systolic congestive heart failure with a EF 25% Elevated troponin Chronic anemia History of hypertension with hypotension Prolonged QT Rheumatoid arthritis Assessment and plan Sepsis secondary to pneumonia in a patient with pulmonary fibrosis Febrile- resolved -Chest x-ray reports "Developing right midlung peripheral airspace opacity, concerning for atelectasis versus pneumonia" -CT chest abdomen pelvis reports "Moderate bilateral subpleural interstitial lung opacities without significant change having the appearance of pulmonary fibrosis. Development of moderate patchy interstitial alveolar opacities left lower lobe compatible with superimposed acute pneumonitis" -Tylenol -Nebulizer treatment -blood cultures NGTD -Augmentin per Dr. Brewster -Supplemental oxygen -Incentive spirometer -Dr. Brewster consulted Atrial fibrillation on Eliquis Chronic systolic congestive heart failure with a EF 25% Elevated troponin -Status post cardiac ablation 05/08, troponin 88.6/ 64.9/ 56.2 -BNP 4003, hold IV fluids -EKG demonstrates sinus tachycardia at 115 bpm with continued atrial fibrillation versus sinus arrhythmia. Left axis noted and diffuse nonspecific ST's ST changes -Presents with tachycardia- multifocal atrial Tachycardia HR 94 -Continue home medications -Cardiology consulted -ECHO reports severe MAC with mild mitral stenosis and regurgitation Grade 2 diastolic dysfunction moderate pulmonary HTN. Right ventricular systolic pressure 55-60mmHg -amiodarone stopped-DACIA DCCV on Friday if breathing has improved -heparin gtt restarted- per Dr. Ramires Chronic anemia -Monitor H&H 7.9/23.6 at 1999, transfused one unit PRBC, recheck 9.3/28.8 -05/14 and 05/17- one unit PRBC -Dr. Mathew- scope Revealed a small hiatal hernia with mild gastritis -small bowel series- unremarkable History of hypertension with hypotension -Presents with hypotension due to sepsis -Euvolemic, gentle IVF-recommended by cardiology -Hold IV fluids due to congestive heart failure -Continues to be hypotensive, 104/71 Prolonged QT -QT 456 -Avoid medications that prolong QT Rheumatoid arthritis -Continue home medication DVT PPx heparin drip restarted Full code LOS 2 to 3 days <Juliann Levine - Last Filed: 05/18/23 12:29> Chart has been reviewed. Events of the last 24 hours have been noted. Case discussed with MARCO A. I performed a substantial part of the MDM during this patient's care today. I personally made or approved the documented management plan and acknowledge its risk of complications. I agree with the findings and documentation provided in the MARCO A's notesPatient is heart rate is better controlled. Patient will be switched over to Eliquis. Patient is clinically doing much better and anticipate discharge in the morning as long as hemodynamics and labs are stable. <Krishna Jules - Last Filed: 05/19/23 05:26>
--- NOTE | 2023-05-18 13:15 | P.PN ---
Subjective Date of Service: 05/18/23 Chief Complaint: Melena, GI bleed, anemia, sepsis 2/2 pneumonia Subjective: No new changes (Patient feels better) Review of Systems 10-point ROS is otherwise unremarkable Physical Examination - Vital Signs Temperature: 97.5 F Blood Pressure: 104/71 Pulse: 94 Respirations: 18 Pulse Ox (%): 93 - Physical Exam General: Alert, Oriented x3 HEENT: Atraumatic Neck: Supple, JVD not distended Respiratory: Clear to auscultation bilaterally Cardiovascular: No edema, Normal S1 S2 Gastrointestinal: Normal bowel sounds Assessment And Plan - Current Problems (Diagnosis) (1) Atrial fibrillation Current Visit: Yes Status: Acute Plan: Patient is s/p recent ablation, today patient is in sinus rhythm (tachycardia) Continue Metoprolol 25 mg po BID D/C heparin drip and start low dose Eliquis 2.5 mg po BID (due to patient hgb drop and transfusions) patient can not be on amiodarone due to pulmonary fibrosis. (2) Pneumonia Current Visit: Yes Status: Acute Plan: Blood cultures are negative so far so no need for DACIA. continue antibiotics. continue gentle hydration (3) CHF (congestive heart failure), NYHA class III Current Visit: No Status: Acute Plan: patient is currently euvolemic on exam. Hydration and monitor volume status.
[2023-05-18] MEDS: PANTOPRAZOLE 40MG TABLET PO SCH (17:48)
[2023-05-18] MEDS: METHOTREXATE 2.5 MG PO SCH (17:49)
[2023-05-18] MEDS: APIXABAN 2.5 MG TABLET PO SCH (21:54)
[2023-05-18] MEDS: AMOX/K CLAV 875 MG TAB PO SCH (21:54)
[2023-05-19 06:46] LABS: Absolute Eosinophils 0.1 K/uL (0-0.5); Absolute Lymphocytes (CBC) 1.1 K/uL (0.7-4.9); Absolute Monocytes 0.9 K/uL (0.1-1.3); Basophils % 0.1 % (0-1.3); Eosinophils % 0.5 % (0-4.4); Hematocrit 26.6 % (39.6-49.0); Hemoglobin 8.9 g/dL (13.6-17.9); Lymphocytes % 9.7 % (15.3-44.8); MCHC 33.3 g/dL (32.0-36.0); MCV 90.1 fL (80-100); MPV 7.9 fL (7.6-11.3); Neutrophils % 81.7 % (41.7-73.7); Nucleated Red Blood Cells % 0.1 % (0-0); Platelets 230 thou/uL (152-406); RBC Red Blood Cell Count 2.95 M/uL (4.33-5.43); Red Cell Distribution Width 20.8 % (12.1-15.2)
[2023-05-19 06:50] VITALS: TEMP 97.6
[2023-05-19 06:56] LABS: Anion Gap 6.4 mEq/L (5.0-15.0); Magnesium 2.5 mg/dL (1.6-2.4); Potassium 3.4 mEq/L (3.5-5.1)
[2023-05-19 07:07] LABS: Phosphorus 1.3 mg/dL (2.5-4.9)
[2023-05-19 09:47] VITALS: BP 104/61
[2023-05-19] MEDS: POTASS/SODIUM PHOSPHATE 1 PKT POWD.PACK PO SCH (10:00)
--- NOTE | 2023-05-19 11:53 | P.DS ---
Admission Date: 05/14/23 Discharge Date: 05/19/23 Disposition: ROUTINE DISCHARGE Discharge Condition: GOOD Reason for Admission: Melena, GI bleed, anemia, sepsis 2/2 pneumonia Brief History of Present Illness: Diagnosis Sepsis secondary to pneumonia in a patient with pulmonary fibrosis Febrile Atrial fibrillation on Eliquis Chronic systolic congestive heart failure with a EF 25% Elevated troponin Chronic anemia History of hypertension with hypotension Prolonged QT Rheumatoid arthritis HPI 05/14/23 Houston Bell is a 73-year-old male with past medical history of pulmonary fibrosis, rheumatoid arthritis, atrial fibrillation on Eliquis, chronic systolic CHF with EF 25%, hypertension who presents to the ED with chief complaint of breathing difficulty and chest congestion. He reports having a cardiac ablation on Friday at [facility] per Dr. Gonzalez's recommendations. Since then he has had difficulty breathing. He presents with atrial fibrillation. He reports having atrial fibrillation for years with an attempt of cardioversion in the past and now status post cardiac ablation. He is on chronic Eliquis. He reports a fever of 101 and took some Tylenol at home. While in the ED he was given Azithromycin, Rocephin, ipratropium, albuterol and tolerated well. Initial vitals : BP 111 / 72, Pulse 12, Resp 26, Pulse Ox 96% on R/A. Laboratory evaluation H&H 8.7/26.2, serum glucose 118, BNP 4003, troponin 80.6 ECG was reviewed by the Attending Physician. EKG demonstrates sinus tachycardia at 115 bpm with continued atrial fibrillation versus sinus arrhythmia. Left axis noted and diffuse nonspecific ST's ST changes Chest x-ray reports "Developing right midlung peripheral airspace opacity, concerning for atelectasis versus pneumonia." Houston will be admitted to hospital service for further evaluation and treatment of sepsis secondary to pneumonia. Hospital Course: Houston Bell is a pleasant 73 year old with a past medical history significant for pulmonary fibrosis, rheumatoid arthritis, atrial fibrillation on Eliquis, chronic systolic CHF with EF 25% who was admitted to the [facility] on 05/13/22 for chest congestion and difficulty breathing. Houston Bell presented to the ED on 05/14/23 with chief complaint of chest congestion and difficulty breathing. Chest xray showed pneumonia. Due to his recent ablation for atrial fibrillation, Dr. Ramires was consulted for cardiac recommendations. Houston has tolerated a heparin drip and has been transitioned back to Eliquis for discharge. His heart rhythm and rate is now normal sinus HR 91. During this admission, two units of PRBC was transfused due to a drop in his H/H. Houston reported black stool with some dark gel as well. Dr. Mathew was consulted for further investigation. Small bowel series is negative for acute process and the EGD revealed a small hiatal hernia with mild gastritis. Please follow up with Dr. Mathew for an outpatient pillcam and further Gastroenter ological management. Continue to follow up with cardiology, Dr. Ramires is available if your weave defect charting clerk is not available. On 05/19/23, Houston was seen on morning rounds and deemed medically stable for discharge. Houston was discharged with instructions to schedule follow-up appointments with PCP, Dr Brewster, Dr. Ramires, Dr. Mathew. Houston was provided prescriptions for Augmentin, Eliquis, metoprolol, and Protonix. The patient weas given the opportunity to ask questions and reported no further questions. Furthermore, all questions were answered to the best of my ability. A copy of this discharge summary will be sent to the above providers to facilitate continuity of care. Today, I personally spent 50 minutes with Houston, of which greater than 50% of the time was spent in patient education, counseling, and coordination of care as described above. Physical Exam General: Alert and oriented x3, NAD, conversing well HEENT: Atraumatic, Normocephalic, PERRLA Neck: Supple, 2+ carotid pulse no bruit Respiratory: Symmetrical chest wall movement, some rhonchi/gurgles, coughing improved Cardiovascular: NSR, S1 S2 present Capillary refill: <2 Seconds Gastrointestinal: Soft and benign on palpation, ND/NT, bowel sounds Musculoskeletal: No clubbing, No swelling, No contractures Integumentary: No rashes, Other (bruising to right groin) Neurological: Normal speech, Normal strength at 5/5 x4 extr Vital Signs/Physical Exam: Temp Pulse Resp BP Pulse Ox 97.6 F 93 H 20 104/61 92 05/19/23 08:00 05/19/23 08:00 05/19/23 08:00 05/19/23 08:00 05/19/23 08:00 Laboratory Data at Discharge: WBC 11.00 thou/uL (4.3-10.9) H 05/19/23 05:32 Hgb 8.9 g/dL (13.6-17.9) L 05/19/23 05:32 Hct 26.6 % (39.6-49.0) L 05/19/23 05:32 Plt Count 230 thou/uL (152-406) 05/19/23 05:32 PT 10.8 SECONDS (9.5-12.5) 05/18/23 06:25 INR 0.98 05/18/23 06:25 APTT 30.0 SECONDS (24.3-36.9) 05/18/23 16:20 Sodium 140 mEq/L (136-145) 05/19/23 05:32 Potassium 3.4 mEq/L (3.5-5.1) L 05/19/23 05:32 BUN 20 mg/dL (7-18) H 05/19/23 05:32 Creatinine 0.69 mg/dL (0.70-1.30) L 05/19/23 05:32 Glucose 83 mg/dL (74-106) 05/19/23 05:32 Phosphorus 1.3 mg/dL (2.5-4.9) L* 05/19/23 05:32 Magnesium 2.5 mg/dL (1.6-2.4) H 05/19/23 05:32 Total Bilirubin 0.6 mg/dL (0.2-1.0) 05/18/23 06:25 AST 43 U/L (15-37) H 05/18/23 06:25 ALT 20 U/L (16-61) 05/18/23 06:25 Alkaline Phosphatase 84 U/L (45-117) 05/18/23 06:25 Triglycerides 59 mg/dL (<150) 05/15/23 07:10 Cholesterol 80 mg/dL (<200) 05/15/23 07:10 HDL Cholesterol 28 mg/dL (40-60) L 05/15/23 07:10 Cholesterol/HDL Ratio 2.86 05/15/23 07:10 Home Medications: Abatacept [Orencia Clickject] 125 mg SQ SEECOM 05/14/23 Acetaminophen [Pain Relief] 650 mg PO TID PRN 05/14/23 Aspirin [Aspirin EC] 81 mg PO DAILY 05/14/23 Atorvastatin Calcium 20 mg PO BEDTIME 05/14/23 Docusate [Colace Cap*] 200 mg PO BEDTIME 05/14/23 Famotidine 20 mg PO DAILY 05/14/23 Folic Acid 1 mg PO DAILY 05/14/23 Iron 65 mg PO DAILY 05/14/23 Methotrexate [Methotrexate*] 8 pill PO SEECOM 05/14/23 Metoprolol Tartrate 50 mg PO DAILY 05/14/23 Polyvinyl Alcohol/Povidone [Clear Eyes Natural Tears Drop] 15 ml OP BID 05/14/23 Tamsulosin [Flomax*] 0.4 mg PO BEDTIME 05/14/23 predniSONE [Prednisone] 5 mg PO DAILY 05/14/23 Amox/Clavulanate [Augmentin 875-125 Tab*] 875 mg PO BID #20 tab 05/18/23 Apixaban [Eliquis *] 2.5 mg PO BID #60 tab 05/18/23 Metoprolol Tartrate [Lopressor*] 25 mg PO BID 6AM 6PM #60 tab 05/18/23 Pantoprazole [Protonix Tab*] 40 mg PO BIDAC #60 tab 05/18/23 New Medications: Amox/Clavulanate [Augmentin 875-125 Tab*] 875 mg PO BID #20 tab Apixaban [Eliquis *] 2.5 mg PO BID #60 tab Metoprolol Tartrate [Lopressor*] 25 mg PO BID 6AM 6PM #60 tab Pantoprazole [Protonix Tab*] 40 mg PO BIDAC #60 tab Physician Discharge Instructions: Houston Bell presented to the ED on 05/14/23 with chief complaint of chest congestion and difficulty breathing. Chest xray showed pneumonia. Due to his recent ablation for atrial fibrillation, Dr. Ramires was consulted for cardiac recommendations. Houston has tolerated a heparin drip and has been transitioned back to [facility] for discharge. His heart rhythm and rate is now normal sinus HR 91. During this admission, two units of PRBC was transfused due to a drop in his H/H. Houston reported black stool with some dark gel as well. Dr. Mathew was consulted for further investigation. Small bowel series is negative for acute process and the EGD revealed a small hiatal hernia with mild gastritis. Please follow up with Dr. Mathew for an outpatient pillcam and further Gastroenterological management. Continue to follow up with cardiology, Dr. Ramires is available if your weave defect charting clerk is not available. -DC IV and DC home -Follow-up with PCP in 1 to 2 weeks -Follow-up with Pulmonary in 1 to 2 weeks -Follow-up with Cardiology in 1 to 2 weeks as well -Follow-up with [employer] [employer], for possible PillCam to further evaluate small bowels, in 1 to 2 weeks -Please call Dr. Jules at [phone] if any questions regarding hospital stay -Please call nursing station at [phone] if any nursing or medication questions -Return to the emergency room if symptoms worsen Diet: AHA Activity: Fall precautions Followup: Julio Brewster MD [ACTIVE - CAN ADMIT] - Jose Ramires MD [ACTIVE - CAN ADMIT] - NONE,NONE [Primary Care Provider] - Austin Mathew MD [ASSOCIATE-ACTIVE - CAN ADMIT] -
--- NOTE | 2023-05-19 12:26 | P.PN ---
Subjective Date of Service: 05/19/23 Chief Complaint: Melena, GI bleed, anemia, sepsis 2/2 pneumonia Subjective: No new changes Review of Systems 10-point ROS is otherwise unremarkable Physical Examination - Vital Signs Temperature: 97.6 F Blood Pressure: 104/61 Pulse: 93 Respirations: 20 Pulse Ox (%): 92 - Physical Exam General: Alert, Oriented x3 HEENT: Atraumatic Neck: Supple Respiratory: Clear to auscultation bilaterally Cardiovascular: No edema, Normal S1 S2 Gastrointestinal: Normal bowel sounds Assessment And Plan - Current Problems (Diagnosis) (1) Atrial fibrillation Current Visit: Yes Status: Acute Plan: Patient is s/p recent ablation, today patient is in sinus rhythm (tachycardia) Continue Metoprolol 25 mg po BID Eliquis 2.5 mg po BID (due to patient hgb drop and transfusions) patient can not be on amiodarone due to pulmonary fibrosis. (2) Pneumonia Current Visit: Yes Status: Acute Plan: Blood cultures are negative so far so no need for DACIA. continue antibiotics. continue gentle hydration (3) CHF (congestive heart failure), NYHA class III Current Visit: No Status: Acute Plan: patient is currently euvolemic on exam. Hydration and monitor volume status.
[2023-05-19 14:27] VITALS: O2SAT 96
--- NOTE | 2023-05-19 14:33 | EKG ---
Test Date: 2023-05-14 Test Time: 20:20:49 [employer]: TAMMI MEASUREMENT RESULTS: Intervals: Rate: 98 ME: 150 QRSD: 90 QT: 376 QTc: 480 [place]: P: 59 ME: 150 QRS: -65 T: 49 INTERPRETIVE STATEMENTS: Sinus rhythm with fusion complexes and premature atrial complexes Left axis deviation Septal infarct, age undetermined Abnormal ECG Compared to ECG 05/14/2023 12:12:40 Atrial premature complex(es) now present Fusion complex(es) now present Left-axis deviation now present Sinus tachycardia no longer present Left anterior fascicular block no longer present Myocardial infarct finding still present Electronically Signed On 05-19-23 14:18:42 CDT by Deuce Gonzalez
== END 2023-05-19 17:14 | disposition home or self-care (01) | DRG 871 ==
LOC: ER 11:57 → ERHOLD 14:35 → 4TH 15:24 → OBSVTOIN 18:21
PROVIDERS: ADMIT Internal Medicine; ATTEND Hospitalist
PROC: 30233N1 Transfusion of Nonautologous Red Blood Cells into Peripheral Vein, Percutaneous Approach (ICD-10-PCS; 2023-05-15)
PROC: 0DB78ZX Excision of Stomach, Pylorus, Via Natural or Artificial Opening Endoscopic, Diagnostic (ICD-10-PCS; 2023-05-17)
PROC: 0DB68ZX Excision of Stomach, Via Natural or Artificial Opening Endoscopic, Diagnostic (ICD-10-PCS; principal; 2023-05-17 08:00)
DX: A41.9 Sepsis, unspecified organism (principal); J18.9 Pneumonia, unspecified organism; R65.21 Severe sepsis with septic shock; K29.71 Gastritis, unspecified, with bleeding; D62 Acute posthemorrhagic anemia; I50.22 Chronic systolic (congestive) heart failure; I11.0 Hypertensive heart disease with heart failure; I48.91 Unspecified atrial fibrillation; M06.9 Rheumatoid arthritis, unspecified; J84.10 Pulmonary fibrosis, unspecified; I27.20 Pulmonary hypertension, unspecified; I08.1 Rheumatic disorders of both mitral and tricuspid valves; K44.9 Diaphragmatic hernia without obstruction or gangrene; I25.10 Atherosclerotic heart disease of native coronary artery without angina pectoris; R94.31 Abnormal electrocardiogram [ECG] [EKG]; R79.89 Other specified abnormal findings of blood chemistry; Z88.6 Allergy status to analgesic agent; Z88.5 Allergy status to narcotic agent; Z79.01 Long term (current) use of anticoagulants; Z79.82 Long term (current) use of aspirin; Z90.49 Acquired absence of other specified parts of digestive tract; Z79.52 Long term (current) use of systemic steroids; Z91.041 Radiographic dye allergy status; Z79.899 Other long term (current) drug therapy; Z85.038 Personal history of other malignant neoplasm of large intestine
CPT/HCPCS: 36415; 36430; 71045; 71250; 74176; 74250; 80048; 80053; 80061; 80076; 80202; 82607; 83540; 83605; 83735; 83880; 84100; 84439; 84443; 84484; 85025; 85044; 85049; 85610; 85730; 86850; 86900; 86901; 86920; 87040; 88305; 88312; 93005; 93306; 94010; 94640; 99285; C9113; G0378; J0171; J0692; J0696; J2001; J2704; J2920; J2930; J7040; J7050; J7120; J7613; J7614; J7644; P9016

== ENCOUNTER 2024-11-30 08:32 | Day surgery (SDC) | payer OTHER, BC ==
[2024-11-29 12:51] LABS: Absolute Lymphocytes (CBC) 1.1 K/uL (0.7-4.9); Hematocrit 38.3 % (39.6-49.0); Hemoglobin 12.4 g/dL (13.6-17.9); MCH 27.6 pg (27.0-35.0); MCHC 32.4 g/dL (32.0-36.0); MCV 85.2 fL (80-100); MPV 8.6 fL (7.6-11.3); Nucleated RBC Absolute Count 0.0 (0-0); Nucleated Red Blood Cells % 0.0 % (0-0); RBC Red Blood Cell Count 4.49 M/uL (4.33-5.43); White Blood Count 6.70 thou/uL (4.3-10.9)
[2024-11-29 13:05] LABS: Anion Gap 9.4 mEq/L (5.0-15.0); BUN Blood Urea Nitrogen 18.0 mg/dL (7-18); Glucose Level 109.0 mg/dL (74-106); Potassium 4.4 mEq/L (3.5-5.1)
[2024-11-29 13:07] LABS: PT Prothrombin Time 12.3 SECONDS (10-13.0); PTT, Activated Partial Thromb 38.3 SECONDS (27.2-37.4); Protime INR 1.09
--- NOTE | 2024-11-29 13:30 | RAD REPORT ---
EXAM: Chest Pa And Lat (2 Views) HISTORY: 74 years Male pre procedure COMPARISON: 07/30/2023. FINDINGS: LUNGS/PLEURA: Coarsened pulmonary interstitium likely reflecting chronic interstitial lung changes. N o new since most acute process. Similar blunting of costophrenic angles. CARDIAC/MEDIASTINUM: Stable enlargement. UPPER ABDOMEN: No significant abnormality. BONES: Sternotomy. No acute abnormality. LINES/TUBES/OTHER: N/A IMPRESSION: Chronic interstitial lung changes without superimposed acute process.
[2024-11-30] MEDS ORDERED: NA CHLORIDE 0.9% 500 ML ONE (08:40)
[2024-11-30] MEDS ORDERED: ASPIRIN 325 MG TAB ONE (08:40)
[2024-11-30] MEDS ORDERED: HEPARIN 10,000 UNIT/10 ML VIAL IV ONE (08:50)
[2024-11-30] MEDS ORDERED: LIDOCAINE 1% 20 ML MDV ONE (08:50)
[2024-11-30] MEDS ORDERED: ATROPINE SULF 1 MG/10 ML SYR IV ONE (08:50)
[2024-11-30] MEDS ORDERED: HEPA 1000U/500MLS 2,000 UNIT/1,000 ML BAG IV ONE (08:50)
[2024-11-30] MEDS ORDERED: FLUMAZENIL 0.1 MG/ML (5 mL VIAL) IV ONE (08:51)
[2024-11-30] MEDS ORDERED: HEPARIN 5000 UNIT/ML 1 ML VIAL ONE (08:51)
[2024-11-30] MEDS ORDERED: NALOXONE 0.4 MG/ML VIAL ONE (08:51)
[2024-11-30] MEDS ORDERED: FENTANYL CITR 100 MCG/2 ML ONE (09:06)
[2024-11-30] MEDS ORDERED: MIDAZOLAM HCL 2 MG/2 ML INJ ONE (09:07)
[2024-11-30 12:55] VITALS: BP 119/72; O2SAT 98
--- NOTE | 2024-11-30 20:43 | OP ---
Date of Procedure: 11/30/2024 Surgeon: Jose Ramires Procedure Performed: Selective coronary angiogram. Indication For Procedure: Chest pains, unstable angina with abnormal cardiac rate. Complications: None. Estimated Blood Loss: Less than 50 cc. Access: Right radial, closed by TR band and right common femoral artery, closed by Mynx. Sedation Time: 30 minutes with 1 of Versed and 75 of fentanyl. Description Of Procedure: After risks, benefits, and alternatives were explained to the patient, the patient agreed to proceed with procedure and signed informed consent. The patient was brought back to the catheterization laboratory technician, prepped and draped in sterile fashion. Time-out was performed. Sedation was admini stered. Next, right radial access was obtained using ultrasound-guided micropuncture technique. Tig er 4 catheter was advanced over J-wire to the aortic root with difficulty. The patient had significa nt spasm, so only left coronary angiogram was done with that, that was later pulled back and we were not able to engage the right coronary artery, so right common femoral artery was obtained using ultra sound-guided micropuncture technique. A JR4 catheter was advanced over the J-wire to the aortic root . Selective angiogram of the right coronary system was done and also used JL4 catheter for more pict ures of the left coronary systems. At the end of procedure, catheter was removed over a J-wire. The right groin sheath was removed. Mynx was applied. Hemostasis achieved and the right radial sheath was removed. TR band applied and hemostasis achieved. The patient was moved back to recovery in sta ble condition. Findings: 1. Left main normal. 2. LAD is very large artery with proximal mild luminal irregularities, then mid heavy calcified 70% t o 80% disease, then mid to distal mild luminal regularities. 3. Left circ, it is a small artery, but gives 2 OM. The first OM got 70% disease. 4. RCA, it is a very tortuous artery calcified with two 90-degree bends with mid 70% to 80% disease a t the 90-degree bend, then mid to distal mild luminal irregularities. RPDA and RPLV with mild lumina l irregularities. Assessment And Plan: 1. Significant LAD, OM1, RCA disease. 2. The plan is do outpatient evaluations for CABG, if surgery is not an option, then PCI of the LAD c an be done without probable PCI of the RCA. BOTELLO/MODL Voice ID: [id number] Report ID: [id number]
== END 2024-11-30 12:35 | disposition home or self-care (01) ==
LOC: CCL 08:32
PROVIDERS: ATTEND Internal Medicine Interventional Cardiology
DX: I25.110 Atherosclerotic heart disease of native coronary artery with unstable angina pectoris (principal); I77.1 Stricture of artery; I34.2 Nonrheumatic mitral (valve) stenosis; I48.11 Longstanding persistent atrial fibrillation; E78.2 Mixed hyperlipidemia; I27.20 Pulmonary hypertension, unspecified; Z87.891 Personal history of nicotine dependence; Z79.899 Other long term (current) drug therapy; Z91.041 Radiographic dye allergy status
CPT/HCPCS: 93005; 85025; 80048; 36415; 85610; 85730; 71046; 93454; 76937; C1893; Q9966; J1644 ×2; J2003; J2250; J3010; J7040; C1760; 99152; 99153; J0461; J2312